=== PATIENT | female | born 1945 | race Caucasian/White ===

== ENCOUNTER 2016-10-12 14:19 | Observation (INO) ==
[2016-10-12] MEDS ORDERED: *HR* Morphine 2 MG/ML SYRINGE IVP ONE (14:31)
[2016-10-12 15:00] LABS: Basophils # 0.1 K/mcL (0.0-0.2); Basophils % 0.3 %; Eosinophils # 0.1 K/mcL (0.0-0.6); Eosinophils % 0.5 %; Hematocrit 42.6 % (35.3-44.9); Hemoglobin 14.2 g/dL (11.5-15.4); Immature Granulocytes % 0.4 % (0-4); Lymphocytes # 1.4 K/mcL (0.6-4.6); Lymphocytes % 8.6 %; Mean Corpuscular HGB Conc 33.3 g/dL (31.6-35.5); Mean Corpuscular Volume 90.1 fL (83.0-100.0); Mean Platelet Volume 9.2 fL (9.4-12.4); Monocytes # 0.5 K/mcL (0.0-1.3); Monocytes % 3.1 %; Neutrophils # 14.1 K/mcL (1.6-8.9); Platelet Count 253 K/mcL (140-400); Red Blood Count 4.73 M/mcL (3.82-4.97); Red Cell Distribution Width 12.7 % (11.5-14.5); Segmented Neutrophils % 87.1 %
--- NOTE | 2016-10-12 15:07 | Emergency Department Note ---
Disposition Clinical Impression: Hiatal hernia Pancreatitis Qualifiers: Chronicity: acute Pancreatitis type: unspecified pancreatitis type Acute pancreatitis complication: unspecified Qualified Code(s): K85.90 - Acute pancreatitis without necrosis or infection, unspecified Abdominal pain Qualifiers: Abdominal location: unspecified location Qualified Code(s): R10.9 - Unspecified abdominal pain Disposition: Admitted As Inpatient Condition: Good Time of Disposition: 15:50 Abdominal Pain HPI - General Chief Complaint: ED Abdominal Pain Stated Complaint: Abd Pain N/V Time Seen by Provider: 10/12/16 14:27 Source: EMS Mode of arrival: EMS Limitations: physical limitation (dementia) Nursing Notes Reviewed: Yes Vital Signs Reviewed: Yes - History of Present Illness HPI Narrative: 70-year-old female history of Alzheimer's dementia presents to the ED via EMS from detention for abdominal pain. Patient has dementia and is a poor historian. Per EMS reports her roommate at the detention states that she has been vomiting all day. When EMS arrived she appeared to be dry heaving. She is no complaining of abdominal pain. When I asked her about it she is not able to provide further details. She does deny history of prior abdominal surgeries. When I asked of her gallbladder and appendix is still there she says yes. She denies a hysterectomy. She also denies any recent cough, chest pain or shortness of breath. Because I am unable to obtain accurate history will get basic labs urinalysis, EKG and a troponin. Also get a CT of the abdomen and pelvis. Patient was given Zofran ODT by EMS. She is currently not feeling nauseated. Morphine has been ordered for pain. Pt Subjective Complaint: abdominal pain Pain Scale: 5 - Related Data Home Medications Medication Instructions Recorded Confirmed Aspirin 325 mg PO DAILY 03/23/15 10/12/16 Folic Acid 0.4 mg PO DAILY 03/23/15 10/12/16 Metoprolol [Lopressor] 25 mg PO BID 03/23/15 10/12/16 Nitroglycerin [Nitrostat] 0.4 mg SL Q5M PRN 03/23/15 10/12/16 Omeprazole [PriLOSEC] 20 mg PO DAILY 03/23/15 10/12/16 ALPRAZolam [Xanax 0.5 MG Tablet] 0.5 mg PO TID 10/12/16 10/12/16 Acetaminophen [Tylenol] 1,000 mg PO HS 10/12/16 10/12/16 Acetaminophen [Tylenol] 650 mg PO Q8H PRN 10/12/16 10/12/16 Albuterol Neb [Proventil Neb] 2.5 mg IH Q4H PRN 10/12/16 10/12/16 Albuterol Sulfate [Proair Hfa] 2 puff IH Q4H PRN 10/12/16 10/12/16 Beclomethasone Diprop 40mcg [Qvar 2 puff IH BID 10/12/16 10/12/16 40 mcg] Carbidopa/Levodopa 25/100 [Sinemet 1 each PO 5XD 10/12/16 10/12/16 25/100] Citalopram [CeleXA] 20 mg PO DAILY 10/12/16 10/12/16 Cyanocobalamin (Vitamin B-12) 1,000 mcg PO DAILY 10/12/16 10/12/16 [Vitamin B12] Cyclobenzaprine HCl 5 mg PO TID 10/12/16 10/12/16 Dicyclomine [Bentyl] 10 mg PO BID 10/12/16 10/12/16 Docusate [Colace] 100 mg PO BID 10/12/16 10/12/16 Donepezil [Aricept] 5 mg PO HS 10/12/16 10/12/16 Ergocalciferol (VITAMIN D2) 50,000 unit PO SA 10/12/16 10/12/16 [Vitamin D2] Fexofenadine HCl [Allergy Relief] 180 mg PO DAILY 10/12/16 10/12/16 Gabapentin [Neurontin] 300 mg PO QAM 10/12/16 10/12/16 Gabapentin [Neurontin] 600 mg PO HS 10/12/16 10/12/16 Glycopyrrolate [Robinul] 0.5 mg PO BID 10/12/16 10/12/16 Guaifenesin [Mucinex] 600 mg PO Q12H PRN 10/12/16 10/12/16 HYDROcodone/Acet 5/325 mg [Alma 1 tab PO Q6H PRN 10/12/16 10/12/16 5-325 mg] HYDROcodone/Acet 5/325 mg [Alma 1 tab PO QAM 10/12/16 10/12/16 5-325 mg] Lisinopril/Hydrochlorothiazide 1 each PO DAILY 10/12/16 10/12/16 [Zestoretic 10-12.5 mg Tablet] Magnesium Hydroxide [Milk of 2,400 mg PO DAILY PRN 10/12/16 10/12/16 Magnesia] Multivit,Th Iron,Other Min 1 each PO DAILY 10/12/16 10/12/16 [Therems-M] Olopatadine HCl [Patanol] 2 drop BOTH EYES BID 10/12/16 10/12/16 Ondansetron HCl [Zofran] 4 mg PO Q6H PRN 10/12/16 10/12/16 Polyethylene Glycol 3350 [MiraLAX] 17 gm PO DAILY PRN 10/12/16 10/12/16 Rivastigmine Tartrate (oral) 3 mg PO BID 10/12/16 10/12/16 [Exelon] Scopolamine Patch [Transderm-Scop] 1.5 mg TD Q72H 10/12/16 10/12/16 Sennosides/Docusate Sodium 2 each PO BID 10/12/16 10/12/16 [Senna-S Tablet] cloNIDine HCl [CloNIDine HCl] 0.1 mg PO DAILY PRN 10/12/16 10/12/16 Allergies Allergy/AdvReac Type Severity Reaction Status Date / Time meperidine [From Demerol] Allergy Rash Verified 11/11/15 08:33 Review of Systems: As Per HPI Limitations: ROS unobtainable due to patients medical condition (dementia) Abdominal Pain PMH - Past Medical History Medical history: Reports: COPD, dementia, hypertension, other Female Surgical History: Reports: other [employer] history: Reports: no [employer] history Psychiatric history: Reports: anxiety - Social History Smoking status: Unknown if ever smoked Alcohol use: Reports: none Drug use: Reports: none Physical Exam - General Limitations: altered mental status (pleasantly demented) General appearance: alert, in no apparent distress - Head Head exam: atraumatic, normocephalic, normal inspection - Eye Eye exam: Present: normal appearance, EOMI - ENT ENT exam: normal exam, normal oropharynx, mucous membranes moist - Neck Neck exam: Present: normal inspection, full ROM. Absent: tenderness - Chest Chest inspection: Present: normal inspection, symmetric chest wall rise. Absent : tenderness, rash - Respiratory Respiratory exam: Present: normal lung sounds bilaterally. Absent: respiratory distress, wheezes - Cardiovascular Cardiovascular exam: Present: regular rate, normal rhythm, normal heart sounds - Abdominal Exam Abdominal exam: Present: soft, tenderness, guarding (voluntary), normal bowel sounds. Absent: distention, rebound, rigidity, Florez's sign, Rovsing's sign, tenderness at McBurney's Point Abdominal tenderness: Present: diffuse, mild - Extremities Exam Extremities exam: Present: normal inspection, full ROM. Absent: tenderness, pedal edema - Neurological Exam Neurological exam: Present: alert, oriented X3 - Psychiatric Psychiatric exam: Present: normal affect, normal mood - Skin Skin exam: Present: warm, dry, intact, normal color. Absent: rash, cyanosis, diaphoresis, erythema Course - Reevaluation(s) Reevaluation #1: Patient support story. She has some voluntary guarding on abdominal exam. Is otherwise soft diffusely tender. Labs performed. She has a leukocytosis of 16. Her lactate is elevated at 2.3 in her lipases elevated 260. Concerning for possible pancreatitis. CT shows incidental adenoma. Fortunately her urinalysis appears contaminated will await cultures for treating. Patient would benefits admission for symptom control and monitoring. She has been giving a liter of normal saline. Patient will be admitted for abdominal pain, nausea vomiting, pancreatitis and elevated lactate. - Consultations Consultation #1: Spoke with on-call hospitalist terri Reeves to admit for abdominal pain, elevated lipase, pancreatitis, elevated lactate. No further orders at this time Time: 17:00 Vital Signs Temperature 97.5 F L 10/12/16 14:29 Pulse Rate 92 10/12/16 14:29 Respiratory Rate 16 10/12/16 14:29 Blood Pressure 181/92 10/12/16 14:29 O2 Sat by Pulse Oximetry 96 10/12/16 14:29 Temperature 97.5 F L 10/12/16 14:29 Pulse Rate 80 10/12/16 17:30 Respiratory Rate 16 10/12/16 17:59 Blood Pressure 165/76 10/12/16 17:59 O2 Sat by Pulse Oximetry 96 10/12/16 17:30 Oxygen Delivery Oxygen Delivery Room Air Abdominal Pain - Medical Records Medical records reviewed: Yes I reviewed the patient's medical records. - Lab Data Lab results reviewed: Yes I reviewed the patient's lab results. Result diagrams: 10/12/16 14:37 10/12/16 14:47 Lab Results 10/12/16 10/12/16 10/12/16 Range/Units 14:37 14:47 14:47 WBC 16.2 H (4.3-11.1) K/mcL RBC 4.73 (3.82-4.97) M/mcL Hgb 14.2 (11.5-15.4) g/dL Hct 42.6 (35.3-44.9) % MCV 90.1 (83.0-100.0) fL MCH 30.0 (28.0-33.3) pg MCHC 33.3 (31.6-35.5) g/dL RDW 12.7 (11.5-14.5) % Plt Count 253 (140-400) K/mcL MPV 9.2 L (9.4-12.4) fL Immature Gran % 0.4 (0-4) % Seg Neutrophils % 87.1 % Lymphocytes % 8.6 % Monocytes % 3.1 % Eosinophils % 0.5 % Basophils % 0.3 % Neutrophils # 14.1 H (1.6-8.9) K/mcL Lymphocytes # 1.4 (0.6-4.6) K/mcL Monocytes # 0.5 (0.0-1.3) K/mcL Eosinophils # 0.1 (0.0-0.6) K/mcL Basophils # 0.1 (0.0-0.2) K/mcL Sodium 137 (136-145) mEq/L Potassium 3.3 L (3.5-4.5) mEq/L Chloride 102 (98-109) mEq/L Carbon Dioxide 27 (19-29) mEq/L BUN 16 (7-20) mg/dL Creatinine 0.63 (0.57-1.11) mg/dL Est GFR ( Amer) > 60 (> 60) Est GFR (Non-Af Amer) > 60 (> 60) BUN/Creatinine Ratio 25 (6-26) Glucose 122 H (70-99) mg/dL Calculated Osmolality 286 (280-300) Lactic Acid 2.3 H (0.5-2.2) mmol/L Calcium 9.5 (8.6-10.8) mg/dL Total Bilirubin 0.3 (0.2-1.2) mg/dL Direct Bilirubin 0.1 (0.0-0.5) mg/dL Indirect Bilirubin 0.2 (0.0-1.2) mg/dL AST 17 (5-34) Units/L ALT 6 (0-55) Units/L Alkaline Phosphatase 72 (38-126) Units/L Troponin I (0-0.03) ng/mL Serum Total Protein 7.3 (6.0-8.3) g/dL Albumin 4.0 (3.5-5.0) g/dL Globulin 3.3 (2.4-3.5) g/dL Albumin/Globulin Ratio 1.2 (1.1-2.2) Amylase 132 H (25-125) Units/L Lipase 257 H (8-78) Units/L Urine Color (Yellow) Urine Clarity (Clear) Urine pH (5.0-8.0) pH Units Ur Specific Clark (1.010-1.025) Urine Protein (Neg-Trace) mg/dL Urine Glucose (UA) (Normal) mg/dL Urine Ketones (Negative) mg/dL Urine Blood (Negative) Urine Nitrite (Negative) Urine Bilirubin (Negative) Urine Urobilinogen (Normal) mg/dL Ur Leukocyte Esterase (Negative) Urine Microscopic RBC (0-3) per hpf Urine Microscopic WBC (0-3) per hpf Ur Squamous Epith Cells (None-Few) per lpf Urine Bacteria (None-Few) per hpf Hyaline Casts (None-Few) per lpf Ur Culture Indicated? (NO) 10/12/16 10/12/16 Range/Units 14:47 15:24 WBC (4.3-11.1) K/mcL RBC (3.82-4.97) M/mcL Hgb (11.5-15.4) g/dL Hct (35.3-44.9) % MCV (83.0-100.0) fL MCH (28.0-33.3) pg MCHC (31.6-35.5) g/dL RDW (11.5-14.5) % Plt Count (140-400) K/mcL MPV (9.4-12.4) fL Immature Gran % (0-4) % Seg Neutrophils % % Lymphocytes % % Monocytes % % Eosinophils % % Basophils % % Neutrophils # (1.6-8.9) K/mcL Lymphocytes # (0.6-4.6) K/mcL Monocytes # (0.0-1.3) K/mcL Eosinophils # (0.0-0.6) K/mcL Basophils # (0.0-0.2) K/mcL Sodium (136-145) mEq/L Potassium (3.5-4.5) mEq/L Chloride (98-109) mEq/L Carbon Dioxide (19-29) mEq/L BUN (7-20) mg/dL Creatinine (0.57-1.11) mg/dL Est GFR ( Amer) (> 60) Est GFR (Non-Af Amer) (> 60) BUN/Creatinine Ratio (6-26) Glucose (70-99) mg/dL Calculated Osmolality (280-300) Lactic Acid (0.5-2.2) mmol/L Calcium (8.6-10.8) mg/dL Total Bilirubin (0.2-1.2) mg/dL Direct Bilirubin (0.0-0.5) mg/dL Indirect Bilirubin (0.0-1.2) mg/dL AST (5-34) Units/L ALT (0-55) Units/L Alkaline Phosphatase (38-126) Units/L Troponin I 0.00 (0-0.03) ng/mL Serum Total Protein (6.0-8.3) g/dL Albumin (3.5-5.0) g/dL Globulin (2.4-3.5) g/dL Albumin/Globulin Ratio (1.1-2.2) Amylase (25-125) Units/L Lipase (8-78) Units/L Urine Color Yellow (Yellow) Urine Clarity Cloudy A (Clear) Urine pH 7.0 (5.0-8.0) pH Units Ur Specific Clark 1.015 (1.010-1.025) Urine Protein Negative (Neg-Trace) mg/dL Urine Glucose (UA) Normal (Normal) mg/dL Urine Ketones Negative (Negative) mg/dL Urine Blood Negative (Negative) Urine Nitrite Negative (Negative) Urine Bilirubin Negative (Negative) Urine Urobilinogen Normal (Normal) mg/dL Ur Leukocyte Esterase Trace H (Negative) Urine Microscopic RBC 0-3 (0-3) per hpf Urine Microscopic WBC 5-15 H (0-3) per hpf Ur Squamous Epith Cells Moderate H (None-Few) per lpf Urine Bacteria Many H (None-Few) per hpf Hyaline Casts None Seen (None-Few) per lpf Ur Culture Indicated? YES A (NO) - Radiology Data Radiology results reviewed: Yes I reviewed the patient's radiology results. Abdomen/Pelvis CT 10/12/16 15:30 IMPRESSION: Large hiatal hernia. Indeterminate 1.6 left adrenal gland nodule, likely an incidental benign adenoma in the absence of no malignancy or biochemical abnormality. Comparison with prior studies would be helpful to confirm stability. Otherwise, a dedicated adrenal protocol CT or MRI would be helpful to further evaluate. D/ / Nita Butler Cha, MD / Nita Butler Cha, MD Interpreting Provider: Nita Butler Cha, MD - EKG Data EKG attestation: Yes I reviewed and interpreted this EKG. EKG results narrative: EKG performed 1440 normal sinus rhythm with first-degree AV block FL interval 236, no drop beats, no ST elevation or depression, no T wave inversion, good R wave progression, normal axis. Intervals are otherwise in normal limits. Compared to old EKG performed 11/11/2015 shows consistent findings. No acute ischemic changes. Attestation Statement - Attestation Attestation: I, Rohit Resendez, examined this patient and my medical decision-making was reviewed with the COOK[employer] MACHINE OPERATOR/PA/Advanced Practice Nurse/Resident Physician. I agree with the documented findings, disposition and treatment plan as described except to the extent set forth below. 70-year-old female presents with concerns of epigastric pain and nausea. Patient states that symptoms started within the past 24 hours located in the epigastric and not radiate. Patient denies fever, chills, shortness of breath, palpitations. On physical exam patient has tenderness to palpation of the epigastrium without abdomen is otherwise soft without rigidity or guarding or rebound. Lungs are clear to auscultation bilaterally. EKG shows a normal sinus rhythm with a rate of 82 without evidence of STEMI. Laboratory evaluation revealed elevation of lipase. Patient has no history of pancreatitis. She will be admitted to the hospital for further care and evaluation of her pancreatitis.
[2016-10-12 15:15] LABS: Alanine Aminotransferase 6 Units/L (0-55); Albumin/Globulin Ratio 1.2 (1.1-2.2); Alkaline Phosphatase 72 Units/L (38-126); Amylase 132 Units/L (25-125); Aspartate Amino Transferase 17 Units/L (5-34); BUN/Creatinine Ratio 25 (6-26); Bilirubin,Direct 0.1 mg/dL (0.0-0.5); Bilirubin,Indirect 0.2 mg/dL (0.0-1.2); Bilirubin,Total 0.3 mg/dL (0.2-1.2); Blood Urea Nitrogen 16 mg/dL (7-20); Calcium 9.5 mg/dL (8.6-10.8); Carbon Dioxide 27 mEq/L (19-29); Chloride 102 mEq/L (98-109); Globulin 3.3 g/dL (2.4-3.5); Glucose 122 mg/dL (70-99); Lipase 257 Units/L (8-78); Osmolality,Calculated 286 (280-300); Potassium 3.3 mEq/L (3.5-4.5); Sodium 137 mEq/L (136-145); Total Protein 7.3 g/dL (6.0-8.3); eGFR For African Americans > 60 (> 60); eGFR For Non-African Americans > 60 (> 60)
[2016-10-12 15:31] LABS: Bilirubin,Urine Negative (Negative); Blood,Urine Negative (Negative); Clarity,Urine Cloudy (Clear); Color,Urine Yellow (Yellow); Glucose,Urine (UA) Normal (Normal); Ketones,Urine Negative (Negative); Leukocyte Esterase,Urine Trace (Negative); Nitrite,Urine Negative (Negative); Protein,Urine Negative (Neg-Trace); Specific Gravity,Urine 1.015 (1.010-1.025); Urobilinogen,Urine Normal (Normal)
[2016-10-12 15:32] LABS: Bacteria,Urine Many per hpf (None-Few); Hyaline Casts,Urine None Seen per lpf (None-Few); RBC,Urine 0-3 per hpf (0-3); Squamous Epithelial Cell,Urine Moderate per lpf (None-Few)
[2016-10-12] MEDS ORDERED: 0.9 % Sodium Chloride 1,000 ML IVC ONE (15:47)
--- NOTE | 2016-10-12 21:05 | Internal Med History&Physical ---
<Maritza Trivedi - Last Filed: 10/12/16 22:26> Date of Encounter: 10/12/16 Internal Medicine - H&P: HPI History of present illness: Ms. Real is a 70 year old female Internal Medicine - H&P: Meds Aspirin 325 mg PO DAILY 03/23/15 [History] Folic Acid 0.4 mg PO DAILY 03/23/15 [History] Metoprolol [Lopressor] 25 mg PO BID 03/23/15 [History] Nitroglycerin [Nitrostat] 0.4 mg SL Q5M PRN 03/23/15 [History] Omeprazole [PriLOSEC] 20 mg PO DAILY 03/23/15 [History] ALPRAZolam [Xanax 0.5 MG Tablet] 0.5 mg PO TID 10/12/16 [History] Acetaminophen [Tylenol] 1,000 mg PO HS 10/12/16 [History] Acetaminophen [Tylenol] 650 mg PO Q8H PRN 10/12/16 [History] Albuterol Neb [Proventil Neb] 2.5 mg IH Q4H PRN 10/12/16 [History] Albuterol Sulfate [Proair Hfa] 2 puff IH Q4H PRN 10/12/16 [History] Beclomethasone Diprop 40mcg [Qvar 40 mcg] 2 puff IH BID 10/12/16 [History] Carbidopa/Levodopa 25/100 [Sinemet 25/100] 1 each PO 5XD 10/12/16 [History] Citalopram [CeleXA] 20 mg PO DAILY 10/12/16 [History] Cyanocobalamin (Vitamin B-12) [Vitamin B12] 1,000 mcg PO DAILY 10/12/16 [History ] Cyclobenzaprine HCl 5 mg PO TID 10/12/16 [History] Dicyclomine [Bentyl] 10 mg PO BID 10/12/16 [History] Docusate [Colace] 100 mg PO BID 10/12/16 [History] Donepezil [Aricept] 5 mg PO HS 10/12/16 [History] Ergocalciferol (VITAMIN D2) [Vitamin D2] 50,000 unit PO SA 10/12/16 [History] Fexofenadine HCl [Allergy Relief] 180 mg PO DAILY 10/12/16 [History] Gabapentin [Neurontin] 300 mg PO QAM 10/12/16 [History] Gabapentin [Neurontin] 600 mg PO HS 10/12/16 [History] Glycopyrrolate [Robinul] 0.5 mg PO BID 10/12/16 [History] Guaifenesin [Mucinex] 600 mg PO Q12H PRN 10/12/16 [History] HYDROcodone/Acet 5/325 mg [Rapelje 5-325 mg] 1 tab PO Q6H PRN 10/12/16 [History] HYDROcodone/Acet 5/325 mg [Rapelje 5-325 mg] 1 tab PO QAM 10/12/16 [History] Lisinopril/Hydrochlorothiazide [Zestoretic 10-12.5 mg Tablet] 1 each PO DAILY [History] Magnesium Hydroxide [Milk of Magnesia] 2,400 mg PO DAILY PRN 10/12/16 [History] Multivit,Th Iron,Other Min [Therems-M] 1 each PO DAILY 10/12/16 [History] Olopatadine HCl [Patanol] 2 drop BOTH EYES BID 10/12/16 [History] Ondansetron HCl [Zofran] 4 mg PO Q6H PRN 10/12/16 [History] Polyethylene Glycol 3350 [MiraLAX] 17 gm PO DAILY PRN 10/12/16 [History] Rivastigmine Tartrate (oral) [Exelon] 3 mg PO BID 10/12/16 [History] Scopolamine Patch [Transderm-Scop] 1.5 mg TD Q72H 10/12/16 [History] Sennosides/Docusate Sodium [Senna-S Tablet] 2 each PO BID 10/12/16 [History] cloNIDine HCl [CloNIDine HCl] 0.1 mg PO DAILY PRN 10/12/16 [History] 3 Allergy/AdvReac Type Severity Reaction Status Date / Time meperidine [From Demerol] Allergy Rash Verified 11/11/15 08:33 All Systems PM: A 10-system review of systems was performed and is negative for pertinent findings except as documented above in the HPI. - Constitutional Vitals: Temp Pulse Resp BP Pulse Ox 97.6 F 85 16 173/107 94 10/12/16 20:19 10/12/16 20:19 10/12/16 20:19 10/12/16 20:19 10/12/16 20:19 Internal Med - H&P Results - Labs CBC & Chem 7: 10/12/16 14:37 10/12/16 14:47 - Attending Attestation Patient seen and examined independently and discussed with Gilmer LINARES. Patient's urinary frequency and suprapubic pain align with symptoms of UTI. Urinalysis is not overtly impressive, but given symptoms, agree with Rocephin pending urine culture results. Hyperlipasemia is reflective of emesis, but no evicence of acute pancreatitis on CT scan, and location of abdominal pain inconsistent with diagnosis of acute pancreatitis. Abdominal exam: no guarding or peritoneal signs, very mild suprapubic ttp with normal bowel sounds. Given uncontrolled HTN, will also add PRN Hydralazine. Otherwise, agree with assessment and plan for UTI and abdominal pain. <Gilmer Elliott - Last Filed: 10/12/16 22:31> Date of Encounter: 10/12/16 Time of Encounter: 19:30 Assessment and Plan (1) UTI (urinary tract infection) Current visit: Yes Status: Acute Patient presents with WBC of 16.2 and symptoms of abdominal pain that is generalized as well as in the suprapubic region, nausea, and vomiting. Patient reports a history of UTIs and states that her current symptoms are similar to what occurs when she's had a UTI in the past. Initial U/A in the Ed was indicative of a urine culture which was ordered. IV ceftriaxone 1,000 mg daily ordered for infection coverage. Patient currently does not meet SIRS criteria but will be monitored for signs of increasing infection and/or sepsis. Will monitor I&O and follow-up labs. Qualifiers: Urinary tract infection type: site unspecified Hematuria presence: without hematuria Qualified Code(s): N39.0 - Urinary tract infection, site not specified (2) Abdominal pain Current visit: Yes Status: Acute Patient presents with acute abdominal pain over the past several days accompanied by nausea and vomiting. Patient reports she has had these symptoms prior when she had a UTI which she reports a history of. IVP Zofran ordered Q6 PRN for nausea and vomiting. IVP Protonix 40 mg daily ordered for patient's GERD. Stair-step pain medications ordered for pain management. CT of the abdomen /pelvis w/IV contrast today is not indicative of pancreatitis, but does show large hiatal hernia and indeterminate 1.6 left adrenal gland nodule likely as an incidental benign adenoma in the absence of known malignancy or biochemical abnormality. Qualifiers: Abdominal location: lower abdomen, unspecified Qualified Code(s): R10.30 - Lower abdominal pain, unspecified (3) Nausea & vomiting Current visit: Yes Status: Acute Patient presents with acute nausea and vomiting over the past several days. Patient's lipase on admission is 257 and this hyperlipasemia is most likely due to patient's cyclical vomiting. Will monitor follow-up labs. IVP Zofran ordered Q6 PRN. Monitor I&O and daily weight. Qualifiers: Vomiting type: cyclical vomiting Vomiting Intractability: non-intractable Qualified Code(s): G43.A0 - Cyclical vomiting, not intractable (4) Weakness Current visit: Yes Status: Acute Patient presents with weakness that she relates to pain, nausea, and vomiting over the past several days. IV fluids ordered at 75 mL/HR for fluid resuscitation. Patient placed as falls precautions/up with assist/bed rest with bedside commode with assist only due to current weakness. PT/OT consults ordered to assess patient for ambulation needs post-discharge. (5) HTN (hypertension) Current visit: Yes Status: Chronic Patient presents with history of chronic hypertension. Patient's BP 181/92 and 165/76 in the ED most likely due to abdominal pain, nausea, and vomiting. Will monitor patient and vital signs and continue her lisinopril and Lopressor. Will order hydralazine IVP if patient's N/V continues and she is unable to keep down meds. Qualifiers: Hypertension type: essential hypertension Qualified Code(s): I10 - Essential (primary) hypertension (6) COPD (chronic obstructive pulmonary disease) Current visit: Yes Status: Chronic Patient presents with history of chronic COPD and complaint of SOB. Supplemental O2 with SpO2 monitoring ordered with titration if SpO2 <92%. DuoNebs ordered Q6 PRN. Will monitor patient and vital signs. Qualifiers: COPD type: unspecified COPD Qualified Code(s): J44.9 - Chronic obstructive pulmonary disease, unspecified (7) Parkinsons disease Current visit: Yes Status: Chronic Patient presents with history of chronic Parkinsons disease. Will continue patient's Carbidopa/Levodopa. (8) DVT prophylaxis Current visit: Yes Status: Acute Patient to be placed on DVT prophylaxis due to current admission protocol and bed rest status. Heparin 5,000 units SQ Q12 ordered. Internal Medicine - H&P: HPI Chief complaint: Abdominal Pain/N/V Admitted From: Emergency Dept Plans for Post Hospital Care: Transfer [facility] Facility History of present illness: Ms. Real is a 70 year old female who presents from the ED with chief complaint of abdominal pain, nausea, and vomiting over the past several days. She states that this has happened before but not for awhile. She also reports that these symptoms are consistent for times when she has a UTI which she reports a history of. She reports urinary urgency and frequency but denies burning with urination. Patient reports some SOB due to current abdominal pain, N/V. She denies chest pain, fever, chills, recent illness, dizziness, headache, vision changes, unusual bleeding, pre-syncope, or syncope. Patient's medical history includes COPD, dementia, hypertension, GERD, and Parkinson's disease. Patient's WBC on admission is 16.2. She currently does not meet SIRS criteria based on other factors but will be monitored for increasing signs of infection. Patient has a lipase level of 257 which is most likely due to her chronic vomiting over the past [address] scan of the abdomen/pelvis today w/IV contrast shows large hiatal hernia, indeterminate 1.6 left adrenal gland nodule likely an incidental benign adenoma in the absence of known malignancy or biochemical abnormality. Comparison with prior studies would be helpful to confirm stability otherwise dedicated adrenal protocol CT or MRI would be helpful to further evaluate. CT is not indicative of pancreatitis. Ms. Real is at moderate risk for further morbidity based on current pain and N/V and will be placed as observation status with orders for IV ceftriaxone 1,000 daily to treat her suspected UTI. IVP Zofran ordered Q6 PRN for N/V and IVP Protonix 40 mg ordered daily for GERD. Supplemental O2 for SOB and safety/falls precautions ordered due to current weakness. Follow-up labs ordered as well as urine culture. Patient to be monitored closely for signs of increasing infection and/or sepsis. Time spent with patient >40 minutes. Past Med Surg Social Fam HX - Past Medical History Source: patient Medical history: COPD, dementia, hypertension, other (Parkinson's disease) Psychiatric history: anxiety - Social History Smoking Status: Former smoker Packs per day: 1 PPD - reports quitting 30 years ago Smokeless Tobacco Status: No Alcohol use: none Drug use: none Current living situation: Assisted Living Activity Level: Uses cane/walker Recent Out of Country Travel Within the Last 8 Weeks: No Exposure or Possible Exposure to Illness During Travel: No - Family History Father History Unknown: Yes Race: Family Member Ethnicity: Non- Living Status: Mother History Unknown: Yes Race: Family Member Ethnicity: Non- Living Status: Brother Race: Family Member Ethnicity: Non- Living Status: Cause of : Cancer Hx Family Cancer: Yes (Unknown type) Sister Race: Family Member Ethnicity: Non- Living Status: Cause of : HD Hx Family Cardiac Disorders: Yes (HD) All Systems PM: A 10-system review of systems was performed and is negative for pertinent findings except as documented above in the HPI. - Constitutional Constitutional: as per HPI, weakness, no chills, no fever(s), no night sweats - EENT Eyes: no change in vision, no discharge, no pain, no photophobia Ears: no ear discharge, no ear pain, no tinnitus Nose, mouth and throat: no dysphagia, no nasal discharge, no neck pain, no sore throat - Breasts Breasts: as per HPI - Cardiovascular Cardiovascular ROS IM: as per HPI, dyspnea, no chest pain, no diaphoresis, no lightheadedness, no palpitations, no syncope - Respiratory Respiratory: as per HPI, dyspnea, no cough, no wheezing, no excessive phlegm production - Gastrointestinal Gastrointestinal: as per HPI, abdominal pain, nausea, vomiting - Genitourinary Genitourinary: as per HPI, urinary frequency, urinary urgency, other ( Suprapubic pain and abdominal pain) Menstruation: as per HPI - Musculoskeletal Musculoskeletal ROS IM: no numbness, no tingling - Integumentary Integumentary IM: no rash, no unusual bruising - Neurological Neurological ROS: as per HPI, weakness, no confusion, no convulsions, no focal weakness, no numbness, no tingling, no tremor(s) - Psychiatric Psychiatric: as per HPI - Endocrine Endocrine IM: as per HPI - Hematologic/Lymphatic Hematologic/Lymphatic: no easy bruising - Allergic/Immunologic Allergic/Immunologic: as per HPI - Constitutional Vitals: Temp Pulse Resp BP Pulse Ox 97.6 F 85 16 173/107 94 10/12/16 20:19 10/12/16 20:19 10/12/16 20:19 10/12/16 20:19 10/12/16 20:19 General appearance: Present: cooperative, A&O X 3, pleasant, answers questions appropriately - Head Head exam: Present: atraumatic, normocephalic - Eye Eye exam: Present: PERRL, conjuntiva pink, sclera anicteric Pupils: Present: PERRL - ENT ENT exam: Present: normal exam, normal external ear exam - Neck Neck exam general surgery: Present: normal inspection - Respiratory Respiratory exam: Present: CTAB. Absent: accessory muscle use, rales, rhonchi, wheezes - Cardiovascular Cardiovascular exam: Present: RRR, +S1, +S2. Absent: diastolic murmur, gallop, rubs, systolic murmur - GI/Abdominal GI/Abdominal exam: Present: diminished bowel sounds, soft, tenderness, no peritoneal signs - Rectal Rectal exam: Present: deferred - Additional comments: exam deferred. - Extremities Exam Extremities exam: Present: warm, radial pulses palpable and symmetrical. Absent : calf tenderness, cyanotic, pedal edema - Back Exam Back exam: Present: normal inspection - Neurological Exam Neurological exam: Present: CN II-XII intact, oriented X3, no focal deficits. Absent: pronater drift, facial droop, speech deficit - Psychiatric Psychiatric exam: Present: normal affect, normal mood - Skin Skin exam: Present: dry, intact Internal Med - H&P Results - Labs CBC & Chem 7: 10/12/16 14:37 10/12/16 14:47 - EKG Data EKG shows normal: sinus rhythm - EKG Data Prior EKG available for review: yes When compared to previous EKG: there is no significant change Interpretation IM: suggestive of ischemia EKG comments: 10/12/16 21:51 EKG dated 11/11/15 shows sinus rhythm. EKG dated 10/12/16 shows sinus rhythm with first-degree AV block, septal myocardial infarction (probably old). - Diagnostic Studies CT scan - abdomen Additional comments: Impressions Abdomen/Pelvis CT 10/12/16 15:30 IMPRESSION: Large hiatal hernia. Indeterminate 1.6 left adrenal gland nodule, likely an incidental benign adenoma in the absence of no malignancy or biochemical abnormality. Comparison with prior studies would be helpful to confirm stability. Otherwise, a dedicated adrenal protocol CT or MRI would be helpful to further evaluate. D/ / Nita Butler Cha, MD / Nita Butler Cha, MD Interpreting Provider: Nita Butler Cha, MD
[2016-10-12] MEDS ORDERED: Naloxone 0.4 MG/ML INJ IVP PRN (21:12)
[2016-10-12] MEDS ORDERED: Ondansetron 4 MG/2 ML VIAL IVP PRN (21:12)
[2016-10-12] MEDS ORDERED: *HR* Morphine 2 MG/ML SYRINGE IVP PRN (21:12)
[2016-10-12] MEDS ORDERED: Acetaminophen 325 MG TABLET PO PRN (21:12)
[2016-10-12] MEDS ORDERED: *HR* HYDROcodone/Acet 5/325 mg TABLET PO PRN (21:12)
[2016-10-12] MEDS ORDERED: cloNIDine HCl 0.1 MG TABLET PO PRN (21:21)
[2016-10-12] MEDS ORDERED: Nitroglycerin 0.4 MG TAB.SUBL SL PRN (21:21)
[2016-10-12] MEDS: Pantoprazole 40 MG VIAL IVP SCH (21:28)
[2016-10-12] MEDS ORDERED: Scopolamine Patch 1.5 MG PATCH.TD72 TD SCH (21:30)
[2016-10-12] MEDS ORDERED: 0.9 % Sodium Chloride 1,000 ML IVC SCH (21:30)
[2016-10-12] MEDS ORDERED: Ipratropium/Albuterol Neb 3 ML IH PRN (22:05)
[2016-10-12] MEDS: Gabapentin 300 MG CAPSULE PO SCH (22:45)
[2016-10-12] MEDS: ALPRAZolam 0.5 MG TABLET PO SCH (22:47)
[2016-10-13] MEDS: Carbidopa/Levodopa 25/100 TABLET PO SCH ×4 (00:23→16:48)
[2016-10-13] MEDS: *HR* Heparin 5,000 UNIT/ML VIAL SQ SCH ×2 (05:56→19:55)
[2016-10-13 07:05] LABS: BUN/Creatinine Ratio 13 (6-26); Blood Urea Nitrogen 9 mg/dL (7-20); Calcium 8.6 mg/dL (8.6-10.8); Carbon Dioxide 26 mEq/L (19-29); Chloride 106 mEq/L (98-109); Chol/HDL Ratio 5.7 (0-4.9); Cholesterol 262 mg/dL (< 200); Glucose 101 mg/dL (70-99); HDL Cholesterol 46 mg/dL (40-59); LDL Cholesterol,Calculated 186 mg/dL (0-99); Magnesium 1.9 mg/dL (1.6-2.6); Osmolality,Calculated 291 (280-300); Potassium 3.4 mEq/L (3.5-4.5); Sodium 141 mEq/L (136-145); Triglycerides 150 mg/dL (< 150); eGFR For African Americans > 60 (> 60); eGFR For Non-African Americans > 60 (> 60)
[2016-10-13 07:07] LABS: Basophils % 0.5 %; Eosinophils # 0.2 K/mcL (0.0-0.6); Eosinophils % 2.7 %; Hematocrit 37.2 % (35.3-44.9); Immature Granulocytes % 0.3 % (0-4); Lymphocytes # 1.6 K/mcL (0.6-4.6); Lymphocytes % 21.8 %; Mean Corpuscular HGB Conc 32.3 g/dL (31.6-35.5); Mean Corpuscular Hemoglobin 29.6 pg (28.0-33.3); Mean Corpuscular Volume 91.6 fL (83.0-100.0); Mean Platelet Volume 9.4 fL (9.4-12.4); Monocytes # 0.6 K/mcL (0.0-1.3); Monocytes % 7.5 %; Neutrophils # 4.9 K/mcL (1.6-8.9); Platelet Count 246 K/mcL (140-400); Red Blood Count 4.06 M/mcL (3.82-4.97); Red Cell Distribution Width 13.1 % (11.5-14.5); Segmented Neutrophils % 67.2 %
[2016-10-13] MEDS: Rivastigmine Tartrate (oral) 1.5 MG CAPSULE PO SCH (07:48)
[2016-10-13] MEDS: Pantoprazole 40 MG VIAL IVP SCH (07:48)
[2016-10-13] MEDS: Glycopyrrolate 1 MG TABLET PO SCH (07:49)
[2016-10-13] MEDS: Sennosides/Docusate Sodium TABLET PO SCH (07:49)
[2016-10-13] MEDS: ALPRAZolam 0.5 MG TABLET PO SCH ×2 (07:49→14:41)
[2016-10-13] MEDS: Gabapentin 300 MG CAPSULE PO SCH (07:49)
[2016-10-13] MEDS: Aspirin 325 MG TABLET PO SCH (07:49)
[2016-10-13] MEDS: Loratadine 10 MG TABLET PO SCH (07:49)
[2016-10-13] MEDS: OLOPATADINE HCL OP SCH (07:50)
--- NOTE | 2016-10-13 13:35 | Internal Med Progress Note ---
<Beata Alcantar - Last Filed: 10/13/16 13:33> Date of Encounter: 10/13/16 Time of Encounter: 13:33 - Assessment and plan (1) UTI (urinary tract infection) Current Visit: Yes Status: Acute Assessment and plan: Patient presented with leukocytosis, suprapubic abd pain and n/v. She reports urinary frequency without dysuria or burning with urination. She was started on IV ceftriaxone 1G daily, Day#2 Leukocytosis has resolved today, both UC grossly contaminated and are unable to be interpreted. Patient appears well on exam, afebrile, VSS. She does complain of RUQ, suprapubic abd pain. Will continue to hydrate PCl NS and provide her with additional dose of abx tomorrow. Anticipate discharge back to ECF tomorrow. Plan: -Continue IV PCl NS @75/hr -Continue ceftriaxone -Anticipate discharge tomorrow Qualifiers: Urinary tract infection type: site unspecified Hematuria presence: without hematuria Qualified Code(s): N39.0 - Urinary tract infection, site not specified (2) Abdominal pain Current Visit: Yes Status: Acute Assessment and plan: RUQ, Suprapubic abd pain plan per above Qualifiers: Abdominal location: right upper quadrant Qualified Code(s): R10.11 - Right upper quadrant pain (3) Nausea & vomiting Current Visit: Yes Status: Resolved Assessment and plan: Resolved Qualifiers: Vomiting type: cyclical vomiting Vomiting Intractability: non-intractable Qualified Code(s): G43.A0 - Cyclical vomiting, not intractable (4) Weakness Current Visit: Yes Status: Acute Assessment and plan: Pt complained of weakness, most likely secondary to vomitting. Plan: -zofran prn -IVF (5) Dysphagia Current Visit: Yes Status: Acute Assessment and plan: Patient complains of some difficulty with swallowing. Plan: -NPO -Speech eval -Advance diet based on speech eval Qualifiers: Dysphagia type: unspecified Qualified Code(s): R13.10 - Dysphagia, unspecified (6) Parkinsons disease Current Visit: Yes Status: Chronic Assessment and plan: Continue home meds (7) Hiatal hernia Current Visit: Yes Status: Acute (8) HTN (hypertension) Current Visit: Yes Status: Chronic Assessment and plan: Continue home meds, 120's systolic currently Qualifiers: Hypertension type: essential hypertension Qualified Code(s): I10 - Essential (primary) hypertension (9) COPD (chronic obstructive pulmonary disease) Current Visit: Yes Status: Chronic Assessment and plan: Continue home meds, not in exacerbation Qualifiers: COPD type: unspecified COPD Qualified Code(s): J44.9 - Chronic obstructive pulmonary disease, unspecified - Subjective Interval history: Patient seen and examined. She is sitting up in the chair. She states that she has RUQ and suprapubic abd pain. She also notes she struggles with constipation. She denies dysuria, burning with urination, nausea, vomitting, fevers, chills, cp, sob. - Constitutional Vitals: Temp Pulse Resp BP Pulse Ox 97.6 F 81 16 120/75 96 10/13/16 10:25 10/13/16 10:25 10/13/16 10:25 10/13/16 10:25 10/13/16 10:25 General appearance: Present: cooperative, A&O X 3, pleasant, no acute distress, answers questions appropriately - Head Head exam: Present: atraumatic, normocephalic - Eye Eye exam: Present: EOMI, conjuntiva pink, sclera anicteric Pupils: Present: normal accommodation - Neck Neck exam general surgery: Present: supple, trachea midline - Respiratory Respiratory exam: Present: CTAB. Absent: accessory muscle use, rales, rhonchi, wheezes - Cardiovascular Cardiovascular exam: Present: RRR, systolic murmur. Absent: tachycardia - GI/Abdominal GI/Abdominal exam: Present: normal bowel sounds, soft, tenderness. Absent: distended Additional comments: Tenderness with palpation of RUQ, suprapubic tenderness - Expanded GI/Abdominal Exam GI/Abdominal exam expanded: Present: Florez's sign - Extremities Exam Extremities exam: Present: normal capillary refill, normal inspection, warm, radial pulses palpable and symmetrical. Absent: calf tenderness, cyanotic, pedal edema - Back Exam Back exam: Present: CVA tenderness (R), normal inspection. Absent: CVA tenderness (L) - Neurological Exam Neurological exam: Present: alert, oriented X3, no focal deficits, strengths equal and symetr throughout. Absent: motor sensory deficit Additional comments: mask like facies resting tremor slow, quiet speech that is slightly slurred - Skin Skin exam: Present: dry, intact, warm Internal Medicine: Result - Labs CBC & Chem 7: 10/13/16 06:34 10/13/16 06:34 Labs: Short CBC 10/13/16 Range/Units 06:34 WBC 7.3 D (4.3-11.1) K/mcL Hgb 12.0 D (11.5-15.4) g/dL Hct 37.2 (35.3-44.9) % Plt Count 246 (140-400) K/mcL Neutrophils # 4.9 (1.6-8.9) K/mcL BMP 10/13/16 06:34 Sodium 141 Potassium 3.4 L Chloride 106 Carbon Dioxide 26 BUN 9 Creatinine 0.68 Glucose 101 H Calcium 8.6 Consult Discharge Plan - Plan Referrals: Rohit Deluna MD [Primary Care Provider] - <Castillo Begum - Last Filed: 10/13/16 14:02> Date of Encounter: 10/13/16 - Constitutional Vitals: Temp Pulse Resp BP Pulse Ox 97.6 F 81 16 120/75 96 10/13/16 10:25 10/13/16 10:25 10/13/16 10:25 10/13/16 10:25 10/13/16 10:25 Internal Medicine: Result - Labs CBC & Chem 7: 10/13/16 06:34 10/13/16 06:34 Labs: Short CBC 10/13/16 Range/Units 06:34 WBC 7.3 D (4.3-11.1) K/mcL Hgb 12.0 D (11.5-15.4) g/dL Hct 37.2 (35.3-44.9) % Plt Count 246 (140-400) K/mcL Neutrophils # 4.9 (1.6-8.9) K/mcL BMP 10/13/16 06:34 Sodium 141 Potassium 3.4 L Chloride 106 Carbon Dioxide 26 BUN 9 Creatinine 0.68 Glucose 101 H Calcium 8.6 - Attending Attestation Hypokalemia Add potassium to IV fluids I examined this patient and my medical decision-making was reviewed with the Resident Physician. I agree with the documented findings, disposition and treatment plan as described except to the extent set forth below.
--- NOTE | 2016-10-13 17:00 | Electrocardiograph Report ---
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
[2016-10-13 20:24] LABS: Hemoglobin A1C 5.4 %
[2016-10-14] MEDS: Rivastigmine Tartrate (oral) 1.5 MG CAPSULE PO SCH ×2 (00:07→09:21)
[2016-10-14] MEDS: Glycopyrrolate 1 MG TABLET PO SCH ×2 (00:08→09:21)
[2016-10-14] MEDS: ALPRAZolam 0.5 MG TABLET PO SCH ×2 (00:09→09:22)
[2016-10-14] MEDS: Gabapentin 300 MG CAPSULE PO SCH ×2 (00:09→09:21)
[2016-10-14] MEDS: Sennosides/Docusate Sodium TABLET PO SCH ×2 (00:09→09:22)
[2016-10-14] MEDS: Carbidopa/Levodopa 25/100 TABLET PO SCH ×3 (00:10→09:22)
[2016-10-14] MEDS: OLOPATADINE HCL OP SCH ×2 (00:11→09:22)
[2016-10-14] MEDS: *HR* Heparin 5,000 UNIT/ML VIAL SQ SCH (05:38)
[2016-10-14 06:00] LABS: Hematocrit 34.4 % (35.3-44.9); Mean Corpuscular Hemoglobin 28.9 pg (28.0-33.3); Mean Corpuscular Volume 90.5 fL (83.0-100.0); Mean Platelet Volume 8.9 fL (9.4-12.4); Platelet Count 200 K/mcL (140-400); Red Cell Distribution Width 12.7 % (11.5-14.5)
[2016-10-14 06:13] LABS: BUN/Creatinine Ratio 13 (6-26); Blood Urea Nitrogen 9 mg/dL (7-20); Calcium 8.5 mg/dL (8.6-10.8); Carbon Dioxide 26 mEq/L (19-29); Chloride 108 mEq/L (98-109); Glucose 93 mg/dL (70-99); Osmolality,Calculated 288 (280-300); Potassium 3.4 mEq/L (3.5-4.5); Sodium 140 mEq/L (136-145); eGFR For African Americans > 60 (> 60); eGFR For Non-African Americans > 60 (> 60)
[2016-10-14] MEDS: Pantoprazole 40 MG VIAL IVP SCH (09:20)
[2016-10-14] MEDS: Loratadine 10 MG TABLET PO SCH (09:22)
[2016-10-14] MEDS: Aspirin 325 MG TABLET PO SCH (09:22)
--- NOTE | 2016-10-14 11:08 | Discharge Summary ---
Date of Encounter: 10/14/16 Time of Encounter: 11:04 - Discharge Diagnosis (1) UTI (urinary tract infection) Priority: Primary Status: Acute Comments: severe weakness 2ry to UTI Qualifiers: Urinary tract infection type: site unspecified Hematuria presence: without hematuria Qualified Code(s): N39.0 - Urinary tract infection, site not specified (2) HTN (hypertension) Priority: Secondary Status: Chronic Qualifiers: Hypertension type: essential hypertension Qualified Code(s): I10 - Essential (primary) hypertension (3) COPD (chronic obstructive pulmonary disease) Priority: Secondary Status: Chronic Qualifiers: COPD type: unspecified COPD Qualified Code(s): J44.9 - Chronic obstructive pulmonary disease, unspecified (4) Parkinsons disease Priority: Secondary Status: Chronic (5) Weakness Priority: Primary Status: Acute (6) Dysphagia Priority: Secondary Status: Acute Comments: Was evaluated by the speech pathology service Neck to thick liquids recommended with mechanical diet Qualifiers: Dysphagia type: unspecified Qualified Code(s): R13.10 - Dysphagia, unspecified - Discharge Medications Prescriptions: ALPRAZolam [Xanax 0.5 MG Tablet] 0.5 mg PO TID #30 Cefdinir [Omnicef] 300 mg PO BID #5 capsule HYDROcodone/Acet 5/325 mg [Iuka 5-325 mg] 1 tab PO Q6H PRN #20 PRN Reason: Pain Home Medications: Aspirin 325 mg PO DAILY 03/23/15 [History] Folic Acid 0.4 mg PO DAILY 03/23/15 [History] Metoprolol [Lopressor] 25 mg PO BID 03/23/15 [History] Nitroglycerin [Nitrostat] 0.4 mg SL Q5M PRN 03/23/15 [History] Omeprazole [PriLOSEC] 20 mg PO DAILY 03/23/15 [History] Acetaminophen [Tylenol] 1,000 mg PO HS 10/12/16 [History] Acetaminophen [Tylenol] 650 mg PO Q8H PRN 10/12/16 [History] Albuterol Neb [Proventil Neb] 2.5 mg IH Q4H PRN 10/12/16 [History] Albuterol Sulfate [Proair Hfa] 2 puff IH Q4H PRN 10/12/16 [History] Beclomethasone Diprop 40mcg [QVAR 40 mcg] 2 puff IH BID 10/12/16 [History] Carbidopa/Levodopa 25/100 [Sinemet 25/100] 1 each PO 5XD 10/12/16 [History] Citalopram [CeleXA] 20 mg PO DAILY 10/12/16 [History] Cyanocobalamin (Vitamin B-12) [Vitamin B12] 1,000 mcg PO DAILY 10/12/16 [History ] Cyclobenzaprine HCl 5 mg PO TID 10/12/16 [History] Dicyclomine [Bentyl] 10 mg PO BID 10/12/16 [History] Docusate [Colace] 100 mg PO BID 10/12/16 [History] Donepezil [Aricept] 5 mg PO HS 10/12/16 [History] Ergocalciferol (VITAMIN D2) [Vitamin D2] 50,000 unit PO SA 10/12/16 [History] Fexofenadine HCl [Allergy Relief] 180 mg PO DAILY 10/12/16 [History] Gabapentin [Neurontin] 300 mg PO QAM 10/12/16 [History] Gabapentin [Neurontin] 600 mg PO HS 10/12/16 [History] Glycopyrrolate [Robinul] 0.5 mg PO BID 10/12/16 [History] Guaifenesin [Mucinex] 600 mg PO Q12H PRN 10/12/16 [History] Lisinopril/Hydrochlorothiazide [Zestoretic 10-12.5 mg Tablet] 1 each PO DAILY [History] Magnesium Hydroxide [Milk of Magnesia] 2,400 mg PO DAILY PRN 10/12/16 [History] Multivit,Th Iron,Other Min [Therems-M] 1 each PO DAILY 10/12/16 [History] Olopatadine HCl [Patanol] 2 drop BOTH EYES BID 10/12/16 [History] Ondansetron HCl [Zofran] 4 mg PO Q6H PRN 10/12/16 [History] Polyethylene Glycol 3350 [MiraLAX] 17 gm PO DAILY PRN 10/12/16 [History] Rivastigmine Tartrate (oral) [Exelon] 3 mg PO BID 10/12/16 [History] Scopolamine Patch [Transderm-Scop] 1.5 mg TD Q72H 10/12/16 [History] Sennosides/Docusate Sodium [Senna-S Tablet] 2 each PO BID 10/12/16 [History] cloNIDine HCl [CloNIDine HCl] 0.1 mg PO DAILY PRN 10/12/16 [History] ALPRAZolam [Xanax 0.5 MG Tablet] 0.5 mg PO TID #30 10/14/16 [Rx] Cefdinir [Omnicef] 300 mg PO BID #5 capsule 10/14/16 [Rx] HYDROcodone/Acet 5/325 mg [Iuka 5-325 mg] 1 tab PO Q6H PRN #20 10/14/16 [Rx] Allergies/Adverse Reactions: 3 Allergy/AdvReac Type Severity Reaction Status Date / Time meperidine [From Demerol] Allergy Rash Verified 11/11/15 08:33 Date of admission: 10/12/16 17:09 Primary care physician: Rohit Deluna MD Consults: 10/12/16 22:16 Consult to Occupational Therapy [CONS] Routine Comment: Evaluate, develop and implement POC Reason for Consult: Patient has history of poor ambulation due to Parkinsons disease and transient weakness. Assess for needs and recommendations post-discharge Consult to Physical Therapy [CONS] Routine Comment: Evaluate, develop and implement POC Reason for Consult: Patient has history of poor ambulation due to Parkinsons disease and transient weakness. Assess for needs and recommendations post-discharge 10/13/16 09:52 Consult to Speech Therapy [CONS] Routine Comment: Evaluate, develop and implement POC Reason for Consult: dysphagia Call Completed: No 10/13/16 10:32 Consult to [facility] [CONS] Routine Reason for SW Consult: discharge planning - Patient Status Disposition: Transfer SNF Condition: Fair Overall status at discharge: patient is back to baseline - Discharge Instructions Follow Up With: Rohit Deluna MD [Primary Care Provider] - Additional Instructions: Follow-up with primary care physician within the next 7 days. Complete 5 more doses of cefdinir. - Diet and Activity Activity: as per physical therapy, increase activity as tolerated Diet: low fat, low cholesterol (Neck to thick liquids recommended with mechanical diet) Hospital course: Ms. Real is a 70 year old female with a past medical history of COPD not oxygen dependent, dementia, hypertension, (Parkinson's disease) who presented to the ED with chief complaint of abdominal pain, nausea, and vomiting over the past several days. She stated that this has happened before but not for awhile. She also reports that these symptoms are consistent for times when she has a UTI which she reported a history of urinary urgency and frequency but denies burning with urination. Patient's WBC on admission is 16.2. CT scan of the abdomen/pelvis today w/IV contrast shows large hiatal hernia, indeterminate 1.6 left adrenal gland nodule likely an incidental benign adenoma in the absence of known malignancy or biochemical abnormality. Was diagnosed with a UTI and started on IV ceftriaxone 1,000 daily. The culture showed grossly mixed nakul and was unable to be interpreted. During her hospitalization the patient complained of choking on her food on and off. She was evaluated by the speech pathology services and recommended nectar thick liquids with mechanical diet due to dysphagia . - Time Spent with Patient Total time spent providing and/or coordinating discharge services: Greater than 30 minutes (40 min) - Constitutional Vitals: Temp Pulse Resp BP Pulse Ox 98 F 72 15 153/74 93 10/14/16 07:21 10/14/16 07:21 10/14/16 07:21 10/14/16 07:21 10/14/16 07:58 General appearance: Present: cooperative, A&O X 3, pleasant, no acute distress, answers questions appropriately - Head Head exam: Present: atraumatic, normocephalic - Eye Eye exam: Present: PERRL, conjuntiva pink, sclera anicteric Pupils: Present: PERRL - Neck Neck exam general surgery: Present: supple, trachea midline. Absent: lymphadenopathy - Respiratory Respiratory exam: Present: CTAB. Absent: accessory muscle use, rales, rhonchi, wheezes - Cardiovascular Cardiovascular exam: Present: RRR, +S1, +S2. Absent: diastolic murmur, gallop, rubs, systolic murmur - GI/Abdominal GI/Abdominal exam: Present: normal bowel sounds, soft, no peritoneal signs. Absent: distended, tenderness - Extremities Exam Extremities exam: Present: warm, radial pulses palpable and symmetrical. Absent : calf tenderness, cyanotic, pedal edema - Neurological Exam Neurological exam: Present: CN II-XII intact, oriented X3, no focal deficits. Absent: pronater drift, facial droop, speech deficit Additional comments: Parkinson tremors - Skin Skin exam: Present: dry, intact
[2016-10-14 11:11] VITALS: BP 144/77
--- NOTE | 2016-10-14 11:18 | Physician Discharge Referral ---
[facility] Referral Info Provider in Charge after Transfer: PCP Institutional Level of Care: Skilled - Diagnosis (1) UTI (urinary tract infection) Status: Acute (2) HTN (hypertension) Status: Chronic (3) COPD (chronic obstructive pulmonary disease) Status: Chronic (4) Parkinsons disease Status: Chronic (5) Weakness Status: Acute (6) Dysphagia Status: Acute - Transfer Medications Prescriptions: ALPRAZolam [Xanax 0.5 MG Tablet] 0.5 mg PO TID #30 Cefdinir [Omnicef] 300 mg PO BID #5 capsule HYDROcodone/Acet 5/325 mg [Archer 5-325 mg] 1 tab PO Q6H PRN #20 PRN Reason: Pain Home Medications: Aspirin 325 mg PO DAILY 03/23/15 [History] Folic Acid 0.4 mg PO DAILY 03/23/15 [History] Metoprolol [Lopressor] 25 mg PO BID 03/23/15 [History] Nitroglycerin [Nitrostat] 0.4 mg SL Q5M PRN 03/23/15 [History] Omeprazole [PriLOSEC] 20 mg PO DAILY 03/23/15 [History] Acetaminophen [Tylenol] 1,000 mg PO HS 10/12/16 [History] Acetaminophen [Tylenol] 650 mg PO Q8H PRN 10/12/16 [History] Albuterol Neb [Proventil Neb] 2.5 mg IH Q4H PRN 10/12/16 [History] Albuterol Sulfate [Proair Hfa] 2 puff IH Q4H PRN 10/12/16 [History] Beclomethasone Diprop 40mcg [QVAR 40 mcg] 2 puff IH BID 10/12/16 [History] Carbidopa/Levodopa 25/100 [Sinemet 25/100] 1 each PO 5XD 10/12/16 [History] Citalopram [CeleXA] 20 mg PO DAILY 10/12/16 [History] Cyanocobalamin (Vitamin B-12) [Vitamin B12] 1,000 mcg PO DAILY 10/12/16 [History ] Cyclobenzaprine HCl 5 mg PO TID 10/12/16 [History] Dicyclomine [Bentyl] 10 mg PO BID 10/12/16 [History] Docusate [Colace] 100 mg PO BID 10/12/16 [History] Donepezil [Aricept] 5 mg PO HS 10/12/16 [History] Ergocalciferol (VITAMIN D2) [Vitamin D2] 50,000 unit PO SA 10/12/16 [History] Fexofenadine HCl [Allergy Relief] 180 mg PO DAILY 10/12/16 [History] Gabapentin [Neurontin] 300 mg PO QAM 10/12/16 [History] Gabapentin [Neurontin] 600 mg PO HS 10/12/16 [History] Glycopyrrolate [Robinul] 0.5 mg PO BID 10/12/16 [History] Guaifenesin [Mucinex] 600 mg PO Q12H PRN 10/12/16 [History] Lisinopril/Hydrochlorothiazide [Zestoretic 10-12.5 mg Tablet] 1 each PO DAILY [History] Magnesium Hydroxide [Milk of Magnesia] 2,400 mg PO DAILY PRN 10/12/16 [History] Multivit,Th Iron,Other Min [Therems-M] 1 each PO DAILY 10/12/16 [History] Olopatadine HCl [Patanol] 2 drop BOTH EYES BID 10/12/16 [History] Ondansetron HCl [Zofran] 4 mg PO Q6H PRN 10/12/16 [History] Polyethylene Glycol 3350 [MiraLAX] 17 gm PO DAILY PRN 10/12/16 [History] Rivastigmine Tartrate (oral) [Exelon] 3 mg PO BID 10/12/16 [History] Scopolamine Patch [Transderm-Scop] 1.5 mg TD Q72H 10/12/16 [History] Sennosides/Docusate Sodium [Senna-S Tablet] 2 each PO BID 10/12/16 [History] cloNIDine HCl [CloNIDine HCl] 0.1 mg PO DAILY PRN 10/12/16 [History] ALPRAZolam [Xanax 0.5 MG Tablet] 0.5 mg PO TID #30 10/14/16 [Rx] Cefdinir [Omnicef] 300 mg PO BID #5 capsule 10/14/16 [Rx] HYDROcodone/Acet 5/325 mg [Archer 5-325 mg] 1 tab PO Q6H PRN #20 10/14/16 [Rx] Allergies/Adverse Reactions: 3 Allergy/AdvReac Type Severity Reaction Status Date / Time meperidine [From Demerol] Allergy Rash Verified 11/11/15 08:33 - Respiratory Orders Smoking Cessation: Smoking cessation has been advised. For more information, call the [place] Tobacco Quit Line at 9-921-CWVQ-NOW. - Advance Directives Code Status: Full Code - Diet Orders Mechanical Soft House Supplement per Dietary: Follow-up with primary care physician within the next 7 days. Complete 5 more doses of cefdinir. Neck thick liquids, mechanical chopped diet CERTIFICATION: I certify that the transfer of the above named patient to an Extended Care Facility is necessary for the continuing treatment of the diagnosis listed. The above information is true and accurate reflection of patient's current condition. Confidential - Redisclosure prohibited without a patient's written consent.
== END 2016-10-14 12:35 ==
LOC: EMEROO 14:19 → 3NENU 14:19 → SUATTDRO 17:09 → 3NENU 18:00 → 3ANU 10-13 19:41
PROVIDERS: ADMIT Family Medicine; ATTEND Internal Medicine

== ENCOUNTER 2016-12-28 11:11 | Inpatient (IN) ==
[2016-12-28] MEDS ORDERED: *HR* HYDROmorphone (PF) 1 MG/ML SYRINGE IVP ONE (11:24)
[2016-12-28] MEDS ORDERED: Ondansetron 4 MG/2 ML VIAL IVP ONE (11:24)
--- NOTE | 2016-12-28 11:29 | Emergency Department Note ---
Disposition Clinical Impression: Pulmonary congestion Sepsis Qualifiers: Sepsis type: sepsis due to unspecified organism Qualified Code(s): A41.9 - Sepsis, unspecified organism UTI (urinary tract infection) Qualifiers: Urinary tract infection type: site unspecified Hematuria presence: without hematuria Qualified Code(s): N39.0 - Urinary tract infection, site not specified Disposition: Admitted As Inpatient Condition: Fair Referrals: Rohit Deluna MD [Primary Care Provider] - Forms: ED Satisfaction Letter, Work/School Release Time of Disposition: 13:50 General Adult HPI - General Chief complaint: ED Abdominal Pain Stated complaint: abdominal pain Time Seen by Provider: 12/28/16 11:19 Source: patient, EMS Mode of arrival: EMS Limitations: other Nursing Notes Reviewed: Yes Vital Signs Reviewed: Yes - History of Present Illness HPI Narrative: Patient is a 71-year-old female who presents to [facility] ED with a chief complaint of abdominal pain and chest pain. Patient was seen yesterday at our facility and was diagnosed with a urinary tract infection and sent back to the half-way [facility] with a course of Keflex. Since then, patient has been reportedly more shaky and complaining of worsening abdominal and chest pain. Patient did have nausea with vomiting yesterday but is spitting up today. Past medical history significant for Parkinson's, COPD, pancreatitis, hyperlipidemia, hiatal hernia, adrenal adenoma, dysphagia. Onset (ago): day(s) Pain Severity: moderate Pain Scale: 6 Improves with: nothing Worsens with: nothing Associated symptoms: Reports: chest pain, cough, fever/chills, shortness of breath, weakness - Related Data Home Medications Medication Instructions Recorded Confirmed Aspirin 325 mg PO DAILY 03/23/15 10/12/16 Folic Acid 0.4 mg PO DAILY 03/23/15 10/12/16 Metoprolol [Lopressor] 25 mg PO BID 03/23/15 10/12/16 Nitroglycerin [Nitrostat] 0.4 mg SL Q5M PRN 03/23/15 10/12/16 Omeprazole [PriLOSEC] 20 mg PO DAILY 03/23/15 10/12/16 Acetaminophen [Tylenol] 1,000 mg PO HS 10/12/16 10/12/16 Acetaminophen [Tylenol] 650 mg PO Q8H PRN 10/12/16 10/12/16 Albuterol Neb [Proventil Neb] 2.5 mg IH Q4H PRN 10/12/16 10/12/16 Albuterol Sulfate [Proair Hfa] 2 puff IH Q4H PRN 10/12/16 10/12/16 Beclomethasone Diprop 40mcg [QVAR 2 puff IH BID 10/12/16 10/12/16 40 mcg] Carbidopa/Levodopa 25/100 [Sinemet 1 each PO 5XD 10/12/16 10/12/16 25/100] Citalopram [CeleXA] 20 mg PO DAILY 10/12/16 10/12/16 Cyanocobalamin (Vitamin B-12) 1,000 mcg PO DAILY 10/12/16 10/12/16 [Vitamin B12] Cyclobenzaprine HCl 5 mg PO TID 10/12/16 10/12/16 Dicyclomine [Bentyl] 10 mg PO BID 10/12/16 10/12/16 Docusate [Colace] 100 mg PO BID 10/12/16 10/12/16 Donepezil [Aricept] 5 mg PO HS 10/12/16 10/12/16 Ergocalciferol (VITAMIN D2) 50,000 unit PO SA 10/12/16 10/12/16 [Vitamin D2] Fexofenadine HCl [Allergy Relief] 180 mg PO DAILY 10/12/16 10/12/16 Gabapentin [Neurontin] 300 mg PO QAM 10/12/16 10/12/16 Gabapentin [Neurontin] 600 mg PO HS 10/12/16 10/12/16 Glycopyrrolate [Robinul] 0.5 mg PO BID 10/12/16 10/12/16 Guaifenesin [Mucinex] 600 mg PO Q12H PRN 10/12/16 10/12/16 Lisinopril/Hydrochlorothiazide 1 each PO DAILY 10/12/16 10/12/16 [Zestoretic 10-12.5 mg Tablet] Magnesium Hydroxide [Milk of 2,400 mg PO DAILY PRN 10/12/16 10/12/16 Magnesia] Multivit,Th Iron,Other Min 1 each PO DAILY 10/12/16 10/12/16 [Therems-M] Olopatadine HCl [Patanol] 2 drop BOTH EYES BID 10/12/16 10/12/16 Ondansetron HCl [Zofran] 4 mg PO Q6H PRN 10/12/16 10/12/16 Polyethylene Glycol 3350 [MiraLAX] 17 gm PO DAILY PRN 10/12/16 10/12/16 Rivastigmine Tartrate (oral) 3 mg PO BID 10/12/16 10/12/16 [Exelon] Scopolamine Patch [Transderm-Scop] 1.5 mg TD Q72H 10/12/16 10/12/16 Sennosides/Docusate Sodium 2 each PO BID 10/12/16 10/12/16 [Senna-S Tablet] cloNIDine HCl [CloNIDine HCl] 0.1 mg PO DAILY PRN 10/12/16 10/12/16 Previous Rx's Medication Instructions Recorded ALPRAZolam [Xanax 0.5 MG Tablet] 0.5 mg PO TID #30 10/14/16 Cefdinir [Omnicef] 300 mg PO BID #5 capsule 10/14/16 HYDROcodone/Acet 5/325 mg [[place] 1 tab PO Q6H PRN #20 10/14/16 5-325 mg] Ondansetron ODT [Zofran ODT] 4 mg SL Q6HR PRN #14 tab.rapdis 12/27/16 cephALEXin [Keflex] 500 mg PO BID #20 capsule 12/27/16 Allergies Allergy/AdvReac Type Severity Reaction Status Date / Time meperidine [From Demerol] Allergy Rash Verified 12/28/16 11:14 All systems ED: reviewed and negative except as stated. Past Medical History - Past Medical History Attestation: Yes The following information was validated with the patient. Source: patient Medical history: Reports: COPD, dementia, hypertension, other Psychiatric history: Reports: anxiety [employer] history: Reports: no [employer] history - Social History Smoking Status: Former smoker Smokeless Tobacco Status: No Alcohol use: Reports: none Drug use: Reports: none Physical Exam - General Limitations: other (dementia/parkinsons) General appearance: alert, cachectic - Head Head exam: atraumatic, normocephalic, normal inspection - Eye Eye exam: Present: EOMI - ENT ENT exam: normal exam, normal oropharynx, mucous membranes moist - Neck Neck exam: Present: normal inspection, full ROM, trachea midline - Chest Chest inspection: Present: normal inspection, symmetric chest wall rise - Respiratory Respiratory exam: Present: other (Bilateral rhonchi throughout) - Cardiovascular Cardiovascular exam: Present: regular rate, normal rhythm, normal heart sounds - Abdominal Exam Abdominal exam: Present: soft, Non-Tender. Absent: tenderness, distention, guarding, rebound, rigidity - Extremities Exam Extremities exam: Present: normal inspection, full ROM. Absent: tenderness, pedal edema - Back Exam Back exam: Present: normal inspection, full ROM. Absent: tenderness - Neurological Exam Neurological exam: Present: alert - Psychiatric Psychiatric exam: Present: normal affect, normal mood - Skin Skin exam: Present: intact, other (Cool, clammy) Course Course Narrative: Patient seen and examined. Generalized abdominal pain and chest pain. Was seen here yesterday and diagnosed with urinary tract infection. Upon examination here, patient appears sickly and is cool and clammy. We will do critical care workup including basic labs, troponin, lactic acid, LFTs, lipase, urinalysis, blood cultures. Patient is hypertensive at this time with a blood pressure of 190s over 112. We will get some pain medication and nausea medication to get her more comfortable and see if her blood pressure comes down a little bit. - Reevaluation(s) Reevaluation #1: Lab work shows leukocytosis of 17,000, potassium of 3.3. We will go ahead and give 40 mEq through the IV. Urine analysis from yesterday did show urinary tract infection. We will go ahead and place on IV Levaquin. Patient needs criteria for sepsis. However due to the pulmonary vascular congestion on her chest x-ray, we will hold off on giving IV fluid boluses at this time. We will give one dose of 40 mg Lasix. Patient is currently hypertensive. Will admit for UTI, sepsis, pulmonary congestion. Discussed with hospitalist Dr. Hernandez who has accepted pt for admission. Time: 13:48 Vital Signs Temperature 96.6 F L 12/28/16 11:14 Pulse Rate 98 12/28/16 11:14 Respiratory Rate 18 12/28/16 11:14 Blood Pressure 198/114 12/28/16 11:14 O2 Sat by Pulse Oximetry 98 12/28/16 11:14 Temperature 96.6 F L 12/28/16 11:14 Pulse Rate 96 12/28/16 13:00 Respiratory Rate 15 12/28/16 13:00 Blood Pressure 187/107 12/28/16 13:00 O2 Sat by Pulse Oximetry 95 12/28/16 13:00 Oxygen Delivery Oxygen Delivery Nasal Cannula Medical Decision Making - Medical Records Medical records reviewed: Yes I reviewed the patient's medical records. - Lab Data Lab results reviewed: Yes I reviewed the patient's lab results. Result diagrams: 12/28/16 12:32 12/28/16 12:32 Lab Results 12/28/16 12/28/16 12/28/16 Range/Units 11:56 12:32 12:32 WBC 17.2 H (4.3-11.1) K/mcL RBC 4.35 (3.82-4.97) M/mcL Hgb 13.1 (11.5-15.4) g/dL Hct 39.0 (35.3-44.9) % MCV 89.7 (83.0-100.0) fL MCH 30.1 (28.0-33.3) pg MCHC 33.6 (31.6-35.5) g/dL RDW 12.4 (11.5-14.5) % Plt Count 252 (140-400) K/mcL MPV 9.2 L (9.4-12.4) fL Immature Gran % 0.5 (0-4) % Seg Neutrophils % 89.8 % Lymphocytes % 6.0 % Monocytes % 3.3 % Eosinophils % 0.2 % Basophils % 0.2 % Neutrophils # 15.4 H (1.6-8.9) K/mcL Lymphocytes # 1.0 (0.6-4.6) K/mcL Monocytes # 0.6 (0.0-1.3) K/mcL Eosinophils # 0.0 (0.0-0.6) K/mcL Basophils # 0.0 (0.0-0.2) K/mcL Sodium 139 (136-145) mEq/L Potassium 3.3 L (3.5-4.5) mEq/L Chloride 105 (98-109) mEq/L Carbon Dioxide 23 (19-29) mEq/L BUN 12 (7-20) mg/dL Creatinine 0.73 (0.57-1.11) mg/dL Est GFR ( Amer) > 60 (> 60) Est GFR (Non-Af Amer) > 60 (> 60) BUN/Creatinine Ratio 16 (6-26) Glucose 186 H (70-99) mg/dL Calculated Osmolality 293 (280-300) Lactic Acid (0.5-2.2) mmol/L Calcium 9.4 (8.6-10.8) mg/dL Phosphorus 2.7 (2.3-4.7) mg/dL Magnesium 2.1 (1.6-2.6) mg/dL Total Bilirubin 0.3 (0.2-1.2) mg/dL Direct Bilirubin 0.1 (0.0-0.5) mg/dL Indirect Bilirubin 0.2 (0.0-1.2) mg/dL AST 19 (5-34) Units/L ALT 10 (0-55) Units/L Alkaline Phosphatase 80 (38-126) Units/L Troponin I (0-0.03) ng/mL B-Natriuretic Peptide (0-100) pg/mL Serum Total Protein 7.1 (6.0-8.3) g/dL Albumin 3.9 (3.5-5.0) g/dL Globulin 3.2 (2.4-3.5) g/dL Albumin/Globulin Ratio 1.2 (1.1-2.2) Lipase 40 (8-78) Units/L Urine Color Yellow (Yellow) Urine Clarity Clear (Clear) Urine pH 7.0 (5.0-8.0) pH Units Ur Specific [place] 1.018 (1.010-1.025) Urine Protein Trace (Neg-Trace) mg/dL Urine Glucose (UA) 100 H (Normal) mg/dL Urine Ketones Trace H (Negative) mg/dL Urine Blood Negative (Negative) Urine Nitrite Negative (Negative) Urine Bilirubin Negative (Negative) Urine Urobilinogen Normal (Normal) mg/dL Ur Leukocyte Esterase Moderate H (Negative) Urine Microscopic RBC 0-3 (0-3) per hpf Urine Microscopic WBC 50-100 H (0-3) per hpf Ur Squamous Epith Cells Many H (None-Few) per lpf Urine Bacteria None Seen (None-Few) per hpf Hyaline Casts None Seen (None-Few) per lpf Ur Culture Indicated? YES A (NO) 12/28/16 12/28/16 12/28/16 Range/Units 12:32 12:32 12:32 WBC (4.3-11.1) K/mcL RBC (3.82-4.97) M/mcL Hgb (11.5-15.4) g/dL Hct (35.3-44.9) % MCV (83.0-100.0) fL MCH (28.0-33.3) pg MCHC (31.6-35.5) g/dL RDW (11.5-14.5) % Plt Count (140-400) K/mcL MPV (9.4-12.4) fL Immature Gran % (0-4) % Seg Neutrophils % % Lymphocytes % % Monocytes % % Eosinophils % % Basophils % % Neutrophils # (1.6-8.9) K/mcL Lymphocytes # (0.6-4.6) K/mcL Monocytes # (0.0-1.3) K/mcL Eosinophils # (0.0-0.6) K/mcL Basophils # (0.0-0.2) K/mcL Sodium (136-145) mEq/L Potassium (3.5-4.5) mEq/L Chloride (98-109) mEq/L Carbon Dioxide (19-29) mEq/L BUN (7-20) mg/dL Creatinine (0.57-1.11) mg/dL Est GFR ( Amer) (> 60) Est GFR (Non-Af Amer) (> 60) BUN/Creatinine Ratio (6-26) Glucose (70-99) mg/dL Calculated Osmolality (280-300) Lactic Acid 1.2 (0.5-2.2) mmol/L Calcium (8.6-10.8) mg/dL Phosphorus (2.3-4.7) mg/dL Magnesium (1.6-2.6) mg/dL Total Bilirubin (0.2-1.2) mg/dL Direct Bilirubin (0.0-0.5) mg/dL Indirect Bilirubin (0.0-1.2) mg/dL AST (5-34) Units/L ALT (0-55) Units/L Alkaline Phosphatase (38-126) Units/L Troponin I 0.02 (0-0.03) ng/mL B-Natriuretic Peptide 66 (0-100) pg/mL Serum Total Protein (6.0-8.3) g/dL Albumin (3.5-5.0) g/dL Globulin (2.4-3.5) g/dL Albumin/Globulin Ratio (1.1-2.2) Lipase (8-78) Units/L Urine Color (Yellow) Urine Clarity (Clear) Urine pH (5.0-8.0) pH Units Ur Specific [place] (1.010-1.025) Urine Protein (Neg-Trace) mg/dL Urine Glucose (UA) (Normal) mg/dL Urine Ketones (Negative) mg/dL Urine Blood (Negative) Urine Nitrite (Negative) Urine Bilirubin (Negative) Urine Urobilinogen (Normal) mg/dL Ur Leukocyte Esterase (Negative) Urine Microscopic RBC (0-3) per hpf Urine Microscopic WBC (0-3) per hpf Ur Squamous Epith Cells (None-Few) per lpf Urine Bacteria (None-Few) per hpf Hyaline Casts (None-Few) per lpf Ur Culture Indicated? (NO) - Radiology Data Radiology results reviewed: Yes I reviewed the patient's radiology results. Chest X-Ray 12/28/16 11:20 IMPRESSION: 1. Minimal bibasilar atelectasis. 2. Pulmonary vascular congestion, chronic interstitial change, and/or central vascular crowding. 3. Large hiatal hernia filled with gas likely within stomach with no findings of gastric volvulus on yesterday's CT. D/ / Timothy Newman MD / Timothy Newman MD Interpreting Provider: Timothy Newman MD - EKG Data EKG #1 EKG attestation: Yes I reviewed and interpreted this EKG. EKG results narrative: EKG done at 1117 shows normal sinus rhythm with a rate of 93 beats per minute. Normal axis. No acute ST elevation or depression. Attestation Statement - Attestation Attestation: I examined this patient and my medical decision-making was reviewed with the Resident Physician. I agree with the documented findings, disposition and treatment plan as described except to the extent set forth below. Patient to ED from half-way. She suffered nausea vomiting abdominal pain. Swelling and not feeling well. She was seen yesterday for the same. She had a CT head and abdomen are unremarkable. She was diagnosed with UTI and sent back to the half-way. They state she has declined today. On exam she is awake alert. Sweaty. Diffuse abdominal tenderness without guarding. Abdomen is soft. Lungs with rales. Plan. She will appear fluid overloaded on her chest x -ray. She has a white count was gone up. Still with the UTI. Chest x-ray is clear and just shows hiatal hernia. She has hypo-thermic at 96. Will meet sepsis criteria. Admit to medicine. IV antibiotic. 35 minutes of critical care exclusive of separately billable procedures.
[2016-12-28] MEDS ORDERED: *HR* HYDROmorphone (PF) 1 MG/ML SYRINGE ONE (11:35)
[2016-12-28] MEDS ORDERED: Ondansetron 4 MG/2 ML VIAL ONE (11:37)
[2016-12-28 12:05] LABS: Bilirubin,Urine Negative (Negative); Blood,Urine Negative (Negative); Clarity,Urine Clear (Clear); Color,Urine Yellow (Yellow); Glucose,Urine (UA) 100 mg/dL (Normal); Ketones,Urine Trace mg/dL (Negative); Leukocyte Esterase,Urine Moderate (Negative); Nitrite,Urine Negative (Negative); Protein,Urine Trace mg/dL (Neg-Trace); Specific Gravity,Urine 1.018 (1.010-1.025); Urobilinogen,Urine Normal (Normal)
[2016-12-28 12:09] LABS: Bacteria,Urine None Seen per hpf (None-Few); Hyaline Casts,Urine None Seen per lpf (None-Few); RBC,Urine 0-3 per hpf (0-3); Squamous Epithelial Cell,Urine Many per lpf (None-Few); WBC,Urine 50-100 per hpf (0-3)
[2016-12-28 12:41] LABS: Basophils % 0.2 %; Eosinophils % 0.2 %; Hemoglobin 13.1 g/dL (11.5-15.4); Immature Granulocytes % 0.5 % (0-4); Mean Corpuscular HGB Conc 33.6 g/dL (31.6-35.5); Mean Corpuscular Hemoglobin 30.1 pg (28.0-33.3); Mean Corpuscular Volume 89.7 fL (83.0-100.0); Mean Platelet Volume 9.2 fL (9.4-12.4); Monocytes # 0.6 K/mcL (0.0-1.3); Monocytes % 3.3 %; Neutrophils # 15.4 K/mcL (1.6-8.9); Platelet Count 252 K/mcL (140-400); Red Blood Count 4.35 M/mcL (3.82-4.97); Red Cell Distribution Width 12.4 % (11.5-14.5); Segmented Neutrophils % 89.8 %
[2016-12-28 12:56] LABS: Alanine Aminotransferase 10 Units/L (0-55); Albumin 3.9 g/dL (3.5-5.0); Albumin/Globulin Ratio 1.2 (1.1-2.2); Alkaline Phosphatase 80 Units/L (38-126); Aspartate Amino Transferase 19 Units/L (5-34); BUN/Creatinine Ratio 16 (6-26); Bilirubin,Direct 0.1 mg/dL (0.0-0.5); Bilirubin,Indirect 0.2 mg/dL (0.0-1.2); Bilirubin,Total 0.3 mg/dL (0.2-1.2); Blood Urea Nitrogen 12 mg/dL (7-20); Calcium 9.4 mg/dL (8.6-10.8); Carbon Dioxide 23 mEq/L (19-29); Chloride 105 mEq/L (98-109); Globulin 3.2 g/dL (2.4-3.5); Glucose 186 mg/dL (70-99); Lipase 40 Units/L (8-78); Osmolality,Calculated 293 (280-300); Potassium 3.3 mEq/L (3.5-4.5); Sodium 139 mEq/L (136-145); Total Protein 7.1 g/dL (6.0-8.3); eGFR For African Americans > 60 (> 60); eGFR For Non-African Americans > 60 (> 60)
[2016-12-28] MEDS ORDERED: Levofloxacin 750 MG/150 ML 750 MG/150 ML BAG IVPB ONE (13:18)
[2016-12-28] MEDS ORDERED: Furosemide 40 MG/4 ML VIAL IVP ONE (13:20)
[2016-12-28 13:34] LABS: Magnesium 2.1 mg/dL (1.6-2.6); Phosphorous 2.7 mg/dL (2.3-4.7)
[2016-12-28] MEDS ORDERED: *HR* Promethazine 25 MG/ML VIAL IVP ONE (13:35)
[2016-12-28] MEDS ORDERED: 0.9 % Sodium Chloride 250 ML ONE (13:36)
[2016-12-28] MEDS ORDERED: Potassium Chloride 40 MEQ, Lidocaine 1% 2 ML in D5% in Water 500 ML IVPB ONE (13:44)
--- NOTE | 2016-12-28 14:54 | Event Note ---
Date of Encounter: 12/28/16 Time of Encounter: 14:51 Patient seen and examined with nurse practitioner. Was seen in the ER yesterday for urinary tract infection and was discharged on keflex, notices worsening of her symptoms. Patient has also been short of breath and was diuresis and emergency room. Patient speech slurred, without focal weakness, so will check CT scan of the head and will also get swallow evaluation for concern of possible aspiration. We will start the patient on levofloxacin PT/ OT.
[2016-12-28] MEDS ORDERED: Ondansetron 4 MG/2 ML VIAL IVP PRN (15:54)
[2016-12-28] MEDS ORDERED: Naloxone 0.4 MG/ML INJ IVP PRN (15:54)
[2016-12-28] MEDS ORDERED: *HR* Metoprolol 5 MG/5 ML VIAL IVP PRN (16:08)
[2016-12-28] MEDS ORDERED: *HR* Morphine 2 MG/ML SYRINGE IVP PRN (16:18)
[2016-12-28] MEDS ORDERED: Albuterol 2.5 MG/3 ML NEBULIZER IH PRN (16:18)
--- NOTE | 2016-12-28 16:24 | Internal Med History&Physical ---
Date of Encounter: 12/28/16 Time of Encounter: 16:20 Assessment and Plan (1) UTI (urinary tract infection) Current visit: Yes Status: Acute Seen at [facility] yesterday and diagnosed with UTI. Sent back to [facility] with Keflex however returns today with N/V, increasing abdominal pain, leukocytosis. She does not appear septic at this time, we will admit for treatment of UTI with IV antibiotic therapy. Start Zosyn every 8 hours We will hold off on IV fluids for now due to pulmonary vascular congestion CBC/CMP in the morning Qualifiers: Urinary tract infection type: site unspecified Hematuria presence: without hematuria Qualified Code(s): N39.0 - Urinary tract infection, site not specified (2) Abdominal pain Current visit: Yes Status: Acute RLQ, LLQ and suprapubic abdominal pain See plan above Qualifiers: Abdominal location: lower abdomen, unspecified Qualified Code(s): R10.30 - Lower abdominal pain, unspecified (3) Aspiration pneumonia Current visit: Yes Status: Suspected Nausea and vomiting with worsening dysphagia. Now short of breath with nonproductive cough. 2 prior history of dysphagia and Parkinson's patients risk for aspiration pneumonia. Failed formal bedside swallow evaluation via speech therapy Barium swallow study to be completed-nothing by mouth, advance diet based upon recommendations following barium swallow study Zosyn IV every 8 Zofran Head of bed to stay elevated above 30 degrees Qualifiers: Aspiration pneumonia type: unspecified Laterality: unspecified laterality Lung location: unspecified part of lung Qualified Code(s): J69.0 - Pneumonitis due to inhalation of food and vomit (4) Pulmonary congestion Current visit: Yes Status: Acute Today began experiencing shortness of breath. Chest x-ray reveals pulmonary vascular congestion. Was given Lasix 40 mg IV push in the ED. Assessment lungs are clear diminished crackles noted. Hold off on diuresis for now. (5) Nausea & vomiting Current visit: Yes Status: Resolved Reports nausea and vomiting for the last few days. Last vomited this morning. Has not vomited since receiving Phenergan and Zofran in the ED. Continue antiemetics. Zofran 8 mg every 6 hours. Maintain head of bed elevated position greater than 30 degrees due to risk for aspiration pneumonia Qualifiers: Vomiting type: cyclical vomiting Vomiting Intractability: non-intractable Qualified Code(s): G43.A0 - Cyclical vomiting, not intractable (6) HTN (hypertension) Current visit: Yes Status: Chronic Initial systolic blood pressure upon arrival was 190s. Blood pressure has improved but remains systolic blood pressures of 166. Unable to give by mouth blood pressure medications due to failure of formal bedside swallow. We will start metoprolol 5 mg IV push every 6 hours for his SBP greater than 150. Resume home blood pressure medications based on recommendations following barium swallow Qualifiers: Hypertension type: essential hypertension Qualified Code(s): I10 - Essential (primary) hypertension (7) COPD (chronic obstructive pulmonary disease) Current visit: Yes Status: Chronic In no respiratory distress, continue Qvar at home dose, and duo nebs and albuterol Qualifiers: COPD type: unspecified COPD Qualified Code(s): J44.9 - Chronic obstructive pulmonary disease, unspecified (8) Parkinsons disease Current visit: Yes Status: Chronic Patient remains nothing by mouth due to dysphagia. Formal bedside swallow done per speech therapy with recommendation of nothing by mouth until barium swallow completed. We will hold all by mouth meds for now. Plan is to resume home present medications based upon recommendation following barium swallow (9) Weakness Current visit: Yes Status: Acute Weakness likely secondary to vomiting, UTI and possible aspirate pneumonia. Additionally she does have a diagnosis of Parkinson's. Zofran Holding IV fluids for now due to pulmonary vascular congestion (10) Dysphagia Current visit: Yes Status: Acute Complains of worsening difficulty swallowing. Upon last admission was recommended to have a nectar thick liquids. She reports she has been drinking thin liquids while at the [facility]S [facility] 234 BEDS AT THE [facility]. Formal speech eval recommends nothing by mouth and barium swallow Advance diet based on results appearance Nothing by mouth for now Patient complains of some difficulty with swallowing. Qualifiers: Dysphagia type: unspecified Qualified Code(s): R13.10 - Dysphagia, unspecified (11) DVT prophylaxis Current visit: Yes Status: Acute Heparin 5000 subcutaneous every 12 hours Internal Medicine - H&P: HPI Chief complaint: UTI, weakness, dysphagia Admitted From: Home Plans for Post Hospital Care: Home History of present illness: Ms. Real is a 71 year old female with a PMH of Parkinson's, dementia, COPD, pancreatitis, HLD, hiatal hernia, adrenal adenoma, anxiety and dysphagia. She presents to [facility] today with nausea, vomiting, abdominal and suprapubic pain. She was seen yesterday in ED and diagnosed with UTI and sent home on Keflex. She returns today with worsening abdominal pain and nausea/vomiting. Was diagnosed with dysphagia upon last admission and recommended to go home with nectar thick liquids, however, she reports that she has been drinking thin liquids at the [facility] 234 BEDS AT THE [facility]. Patient ALSO complaining of shortness of breath. Chest x- ray reveals minimal bibasilar atelectasis, pulmonary vascular congestion. Workup revealed leukocytosis 17.2. She admits to fever, fatigue, shortness of breath, nausea vomiting, dysuria and mid back pain. Being admitted for further workup and evaluation Past Med Surg Social Fam HX - Past Medical History Medical history: COPD, dementia, hypertension, other Psychiatric history: anxiety - Social History Smoking Status: Former smoker Smokeless Tobacco Status: No Alcohol use: none Drug use: none - Family History Father Family Member Ethnicity: Non- Living Status: Mother Family Member Ethnicity: Non- Living Status: Brother Family Member Ethnicity: Non- Living Status: Hx Family Cancer: Yes (Unknown type) Sister Family Member Ethnicity: Non- Living Status: Hx Family Cardiac Disorders: Yes (HD) Internal Medicine - H&P: Meds Aspirin 325 mg PO DAILY 03/23/15 [History] Folic Acid 0.4 mg PO DAILY 03/23/15 [History] Metoprolol [Lopressor] 25 mg PO BID 03/23/15 [History] Nitroglycerin [Nitrostat] 0.4 mg SL Q5M PRN 03/23/15 [History] Omeprazole [PriLOSEC] 20 mg PO DAILY 03/23/15 [History] Acetaminophen [Tylenol] 1,000 mg PO HS 10/12/16 [History] Acetaminophen [Tylenol] 650 mg PO Q8H PRN 10/12/16 [History] Albuterol Neb [Proventil Neb] 2.5 mg IH Q4H PRN 10/12/16 [History] Albuterol Sulfate [Proair Hfa] 2 puff IH Q4H PRN 10/12/16 [History] Beclomethasone Diprop 40mcg [QVAR 40 mcg] 2 puff IH BID 10/12/16 [History] Carbidopa/Levodopa 25/100 [Sinemet 25/100] 1 each PO 5XD 10/12/16 [History] Cyanocobalamin (Vitamin B-12) [Vitamin B12] 1,000 mcg PO DAILY 10/12/16 [History ] Cyclobenzaprine HCl 5 mg PO TID 10/12/16 [History] Dicyclomine [Bentyl] 10 mg PO BID 10/12/16 [History] Donepezil [Aricept] 5 mg PO HS 10/12/16 [History] Ergocalciferol (VITAMIN D2) [Vitamin D2] 50,000 unit PO SA 10/12/16 [History] Fexofenadine HCl [Allergy Relief] 180 mg PO DAILY 10/12/16 [History] Gabapentin [Neurontin] 300 mg PO QAM 10/12/16 [History] Gabapentin [Neurontin] 600 mg PO HS 10/12/16 [History] Glycopyrrolate [Robinul] 0.5 mg PO BID 10/12/16 [History] Guaifenesin [Mucinex] 600 mg PO Q12H PRN 10/12/16 [History] Lisinopril/Hydrochlorothiazide [Zestoretic 10-12.5 mg Tablet] 1 each PO DAILY [History] Magnesium Hydroxide [Milk of Magnesia] 2,400 mg PO DAILY PRN 10/12/16 [History] Multivit,Th Iron,Other Min [Therems-M] 1 each PO DAILY 10/12/16 [History] Olopatadine HCl [Patanol] 2 drop BOTH EYES BID 10/12/16 [History] Ondansetron HCl [Zofran] 4 mg PO Q6H PRN 10/12/16 [History] Polyethylene Glycol 3350 [MiraLAX] 17 gm PO DAILY PRN 10/12/16 [History] Rivastigmine Tartrate (oral) [Exelon] 3 mg PO BID 10/12/16 [History] Scopolamine Patch [Transderm-Scop] 1.5 mg TD Q72H 10/12/16 [History] Sennosides/Docusate Sodium [Senna-S Tablet] 2 each PO BID 10/12/16 [History] ALPRAZolam [Xanax 0.5 MG Tablet] 0.5 mg PO TID #30 10/14/16 [Rx] HYDROcodone/Acet 5/325 mg [Lillian 5-325 mg] 1 tab PO Q6H PRN #20 10/14/16 [Rx] Ropinirole HCl [Requip] 0.25 mg PO HS 12/28/16 [History] Sertraline [Zoloft] 50 mg PO DAILY 12/28/16 [History] 3 Allergy/AdvReac Type Severity Reaction Status Date / Time meperidine [From Demerol] Allergy Rash Verified 12/28/16 11:14 All Systems PM: A 10-system review of systems was performed and is negative for pertinent findings except as documented above in the HPI. - Constitutional Constitutional: weakness, no chills, no night sweats - Cardiovascular Cardiovascular ROS IM: as per HPI, dyspnea, no chest pain, no diaphoresis, no lightheadedness, no palpitations, no syncope - Respiratory Respiratory: as per HPI, dyspnea, no cough, no wheezing, no excessive phlegm production - Gastrointestinal Gastrointestinal: as per HPI, abdominal pain, dysphagia, nausea, vomiting, no coffee ground emesis, no constipation, no diarrhea, no early satiety, no hematemesis, no hematochezia - Genitourinary Genitourinary: as per HPI, dysuria, no change in urinary stream, no hematuria, no urinary frequency, no urinary hesitancy - Musculoskeletal Musculoskeletal ROS IM: back pain - Integumentary Integumentary IM: no rash, no unusual bruising - Neurological Neurological ROS: no confusion, no convulsions, no focal weakness, no headache(s ), no numbness, no tingling, no tremor(s) - Constitutional Vitals: Temp Pulse Resp BP Pulse Ox 96.6 F L 91 18 162/82 98 12/28/16 11:14 12/28/16 14:09 12/28/16 14:12 12/28/16 14:12 12/28/16 14:09 General appearance: Present: cooperative, A&O X 3, no acute distress, answers questions appropriately - Head Head exam: Present: atraumatic, normocephalic - Eye Eye exam: Present: EOMI, PERRL, conjuntiva pink, sclera anicteric Pupils: Present: PERRL - Neck Neck exam general surgery: Present: supple, trachea midline. Absent: lymphadenopathy - Respiratory Respiratory exam: Present: decreased breath sounds, CTAB. Absent: accessory muscle use, rales, rhonchi, wheezes, tachypnea - Cardiovascular Cardiovascular exam: Present: RRR, +S1, +S2. Absent: bradycardia, diastolic murmur, gallop, rubs, systolic murmur, tachycardia - GI/Abdominal GI/Abdominal exam: Present: normal bowel sounds, soft, no peritoneal signs. Absent: distended, tenderness - Extremities Exam Extremities exam: Present: warm, radial pulses palpable and symmetrical. Absent : calf tenderness, cyanotic, normal capillary refill, pedal edema, tenderness - Neurological Exam Neurological exam: Present: CN II-XII intact, oriented X3, no focal deficits. Absent: pronater drift, facial droop, speech deficit Internal Med - H&P Results - Labs CBC & Chem 7: 12/28/16 12:32 12/28/16 12:32 - Diagnostic Studies Chest x-ray Status: image reviewed by me Additional comments: Minimal bibasilar atelectasis, pulmonary congestion
[2016-12-28] MEDS: Piperacillin/Tazobactam 3.375 GM in D5% in Water (Mini-Bag+) 100 ML IVPB SCH (17:25)
[2016-12-28] MEDS: Ipratropium/Albuterol Neb 3 ML IH SCH ×2 (20:01→23:05)
[2016-12-28] MEDS: *HR* LORazepam 2 MG/ML VIAL IVP PRN (22:02)
[2016-12-28] MEDS: *HR* Metoprolol 5 MG/5 ML VIAL IVP SCH (23:54)
[2016-12-29] MEDS: Piperacillin/Tazobactam 3.375 GM in D5% in Water (Mini-Bag+) 100 ML IVPB SCH (01:03)
[2016-12-29] MEDS: Ipratropium/Albuterol Neb 3 ML IH SCH ×6 (03:06→23:43)
[2016-12-29 04:15] LABS: Basophils % 0.3 %; Eosinophils # 0.2 K/mcL (0.0-0.6); Eosinophils % 1.6 %; Hematocrit 37.5 % (35.3-44.9); Hemoglobin 12.5 g/dL (11.5-15.4); Immature Granulocytes % 0.3 % (0-4); Lymphocytes # 2.1 K/mcL (0.6-4.6); Lymphocytes % 20.7 %; Mean Corpuscular HGB Conc 33.3 g/dL (31.6-35.5); Mean Corpuscular Hemoglobin 29.4 pg (28.0-33.3); Mean Corpuscular Volume 88.2 fL (83.0-100.0); Mean Platelet Volume 9.5 fL (9.4-12.4); Monocytes % 9.7 %; Neutrophils # 6.8 K/mcL (1.6-8.9); Platelet Count 239 K/mcL (140-400); Red Blood Count 4.25 M/mcL (3.82-4.97); Red Cell Distribution Width 12.8 % (11.5-14.5); Segmented Neutrophils % 67.4 %
[2016-12-29 04:28] LABS: Alanine Aminotransferase 18 Units/L (0-55); Albumin 3.2 g/dL (3.5-5.0); Alkaline Phosphatase 69 Units/L (38-126); Aspartate Amino Transferase 20 Units/L (5-34); BUN/Creatinine Ratio 15 (6-26); Bilirubin,Total 0.5 mg/dL (0.2-1.2); Blood Urea Nitrogen 13 mg/dL (7-20); Calcium 9.1 mg/dL (8.6-10.8); Carbon Dioxide 27 mEq/L (19-29); Chloride 103 mEq/L (98-109); Globulin 3.3 g/dL (2.4-3.5); Glucose 109 mg/dL (70-99); Osmolality,Calculated 289 (280-300); Potassium 3.7 mEq/L (3.5-4.5); Sodium 139 mEq/L (136-145); Total Protein 6.5 g/dL (6.0-8.3); eGFR For African Americans > 60 (> 60); eGFR For Non-African Americans > 60 (> 60)
[2016-12-29] MEDS ORDERED: Famotidine 20 MG/2 ML VIAL IVP SCH (06:00)
[2016-12-29] MEDS ORDERED: NON-FORMULARY MEDICATION 1 EACH EACH (Magnesium Hydroxide [Milk Of Magnesia] 2,400 MG) PO PRN (08:02)
[2016-12-29] MEDS ORDERED: *HR* HYDROcodone/Acet 5/325 mg TABLET PO PRN (08:02)
[2016-12-29] MEDS ORDERED: (Folic Acid [Folic Acid] 0.4 MG) PO SCH (09:00)
[2016-12-29] MEDS ORDERED: OLOPATADINE HCL OP SCH (09:00)
[2016-12-29] MEDS ORDERED: MOM Conc 10 ML UD.LIQ PO PRN (09:19)
--- NOTE | 2016-12-29 09:30 | Internal Med Progress Note ---
Date of Encounter: 12/29/16 Time of Encounter: 09:05 - Assessment and plan (1) Dysphagia Current Visit: Yes Status: Acute Assessment and plan: Acute on chronic. Dismay also be progression of her Parkinson's disease and dementia. Attempts at tube placement i.e. G-tube or NG tube failed. Patient is unable to follow commands. Videofluoroscopy shows multiple aspirations. We will discuss with family regarding PEG tube placement. Special therapy will continue to follow.crescencio to follow Attempted to call Next of kin listed per chart Yesica Yates, on [phone], with no response. Left a voice message for call back. Also called emergency contact Latha Leon [phone]. Stated by respondent its a home phone, and business owner/engineer isnt home, left a number for call back Qualifiers: Dysphagia type: unspecified Qualified Code(s): R13.10 - Dysphagia, unspecified (2) UTI (urinary tract infection) Current Visit: Yes Status: Ruled-out Assessment and plan: Ruled out. Urine culture with no growth. Qualifiers: Urinary tract infection type: site unspecified Hematuria presence: without hematuria Qualified Code(s): N39.0 - Urinary tract infection, site not specified (3) DVT prophylaxis Current Visit: Yes Status: Acute Assessment and plan: Subcutaneous heparin (4) HTN (hypertension) Current Visit: Yes Status: Chronic Assessment and plan: Controlled at this time. Patient is nothing by mouth due to dysphagia with aspiration. Continue metoprolol IV every 6 hours. Continue to monitor. Qualifiers: Hypertension type: essential hypertension Qualified Code(s): I10 - Essential (primary) hypertension (5) COPD (chronic obstructive pulmonary disease) Current Visit: Yes Status: Chronic Assessment and plan: Not in exacerbation at this time. DuoNeb when necessary. Qualifiers: COPD type: unspecified COPD Qualified Code(s): J44.9 - Chronic obstructive pulmonary disease, unspecified (6) Parkinsons disease Current Visit: Yes Status: Chronic (7) Pulmonary congestion Current Visit: Yes Status: Acute Assessment and plan: Per CXR Chest is clear, no O2 requirements, no SOB Continue to monitor (8) Aspiration pneumonia Current Visit: Yes Status: Suspected Assessment and plan: Continue Zosyn for now CXR not suggestive of pneumonia Qualifiers: Aspiration pneumonia type: unspecified Laterality: unspecified laterality Lung location: unspecified part of lung Qualified Code(s): J69.0 - Pneumonitis due to inhalation of food and vomit (9) Hiatal hernia Current Visit: Yes Status: Chronic Assessment and plan: Chronic. - Subjective Interval history: 71 F, resident of [facility] Seen and evaluated at bedside She has a PMH of Parkinson disease, dementia, chronic dysphagia, hypertension, and COPD. She is admitted and being managed for urinary tract infection, worsening of her dysphagia, as well as aspiration pneumonia. Denies new complaints. . - Constitutional Vitals: Temp Pulse Resp BP Pulse Ox 98.2 F 97 18 106/64 96 12/29/16 06:47 12/29/16 06:47 12/29/16 07:36 12/29/16 06:47 12/29/16 07:36 General appearance: Present: cooperative, A&O X 2, pleasant, no acute distress, answers questions appropriately - Head Head exam: Present: atraumatic, normocephalic - Eye Eye exam: Present: PERRL, conjuntiva pink, sclera anicteric Pupils: Present: PERRL - Neck Neck exam general surgery: Present: supple, trachea midline. Absent: lymphadenopathy - Respiratory Respiratory exam: Present: CTAB. Absent: accessory muscle use, rales, rhonchi, wheezes - Cardiovascular Cardiovascular exam: Present: RRR, +S1, +S2. Absent: diastolic murmur, gallop, rubs, systolic murmur - GI/Abdominal GI/Abdominal exam: Present: normal bowel sounds, soft, no peritoneal signs. Absent: distended, tenderness - Extremities Exam Extremities exam: Present: warm, radial pulses palpable and symmetrical. Absent : calf tenderness, cyanotic, pedal edema - Neurological Exam Neurological exam: Present: alert, CN II-XII intact, no focal deficits. Absent : oriented X3, pronater drift, facial droop, speech deficit - Skin Skin exam: Present: dry, intact Internal Medicine: Result - Labs CBC & Chem 7: 12/29/16 03:18 12/29/16 03:18 Labs: Short CBC 12/29/16 Range/Units 03:18 WBC 10.1 (4.3-11.1) K/mcL Hgb 12.5 (11.5-15.4) g/dL Hct 37.5 (35.3-44.9) % Plt Count 239 (140-400) K/mcL Neutrophils # 6.8 (1.6-8.9) K/mcL BMP 12/29/16 03:18 Sodium 139 Potassium 3.7 Chloride 103 Carbon Dioxide 27 BUN 13 Creatinine 0.88 Glucose 109 H Calcium 9.1 Liver Function 12/29/16 Range/Units 03:18 Total Bilirubin 0.5 (0.2-1.2) mg/dL AST 20 (5-34) Units/L ALT 18 (0-55) Units/L Alkaline Phosphatase 69 (38-126) Units/L Albumin 3.2 L (3.5-5.0) g/dL - Impressions Impressions Head CT 12/28/16 14:50 IMPRESSION: Streak limited study but no CT evidence of an acute infarct. D/ / Delfino Reyes MD / Delfino Reyes MD Interpreting Provider: Delfino Reyes MD Videofluoroscopic Swallow 12/28/16 16:07 IMPRESSION: Multiple episodes of predominantly transient laryngeal penetration mostly from residue in the piriform sinuses. Some deep aspiration to the true vocal cords was noted later during the procedure, and transient tracheal aspiration is not entirely excluded. Please see separate speech pathology report for full discussion of findings and recommendations. D/ / Timothy Newman MD / Timothy Newman MD Interpreting Provider: Timothy Newman MD Consult Discharge Plan - Plan [facility] [facility] [place] Care Provider[place] -
[2016-12-29] MEDS: Piperacillin/Tazobactam 3.375 GM in D5% in Water 50 ML IVPB SCH ×2 (09:33→17:28)
[2016-12-29] MEDS: Rivastigmine Tartrate (oral) 1.5 MG CAPSULE PO SCH ×2 (11:12→21:09)
[2016-12-29] MEDS: Sennosides/Docusate Sodium TABLET PO SCH ×2 (11:12→21:09)
[2016-12-29] MEDS: Aspirin 325 MG TABLET PO SCH (11:12)
[2016-12-29] MEDS: ALPRAZolam 0.5 MG TABLET PO SCH ×3 (11:12→21:09)
[2016-12-29] MEDS: Glycopyrrolate 1 MG TABLET PO SCH ×2 (11:12→21:09)
[2016-12-29] MEDS: Gabapentin 300 MG CAPSULE PO SCH ×2 (11:12→21:09)
[2016-12-29] MEDS: Carbidopa/Levodopa 25/100 TABLET PO SCH ×4 (11:22→23:47)
[2016-12-29] MEDS: Scopolamine Patch 1.5 MG PATCH.TD72 TD SCH (11:52)
[2016-12-29] MEDS: *HR* Metoprolol 5 MG/5 ML VIAL IVP SCH ×3 (11:54→23:23)
[2016-12-29] MEDS ORDERED: Levofloxacin 750 MG/150 ML 750 MG/150 ML BAG IVPB SCH (14:00)
[2016-12-29] MEDS: *HR* Heparin 5,000 UNIT/ML VIAL SQ SCH (17:28)
[2016-12-29] MEDS: rOPINIRole 0.25 MG TABLET PO SCH (21:09)
[2016-12-30] MEDS: Piperacillin/Tazobactam 3.375 GM in D5% in Water 50 ML IVPB SCH ×3 (00:47→17:35)
[2016-12-30] MEDS: Ipratropium/Albuterol Neb 3 ML IH SCH ×5 (03:37→20:07)
[2016-12-30 04:35] LABS: Basophils # 0.1 K/mcL (0.0-0.2); Basophils % 0.7 %; Eosinophils # 0.1 K/mcL (0.0-0.6); Eosinophils % 1.3 %; Hematocrit 39.9 % (35.3-44.9); Immature Granulocytes % 0.4 % (0-4); Lymphocytes % 19.6 %; Mean Corpuscular HGB Conc 32.6 g/dL (31.6-35.5); Mean Corpuscular Hemoglobin 29.4 pg (28.0-33.3); Mean Corpuscular Volume 90.3 fL (83.0-100.0); Mean Platelet Volume 9.4 fL (9.4-12.4); Monocytes # 0.9 K/mcL (0.0-1.3); Monocytes % 8.9 %; Neutrophils # 6.9 K/mcL (1.6-8.9); Platelet Count 248 K/mcL (140-400); Red Blood Count 4.42 M/mcL (3.82-4.97); Red Cell Distribution Width 12.8 % (11.5-14.5); Segmented Neutrophils % 69.1 %
[2016-12-30 04:50] LABS: BUN/Creatinine Ratio 17 (6-26); Blood Urea Nitrogen 15 mg/dL (7-20); Calcium 9.6 mg/dL (8.6-10.8); Carbon Dioxide 25 mEq/L (19-29); Chloride 102 mEq/L (98-109); Glucose 126 mg/dL (70-99); Osmolality,Calculated 290 (280-300); Potassium 3.5 mEq/L (3.5-4.5); Sodium 139 mEq/L (136-145); eGFR For African Americans > 60 (> 60); eGFR For Non-African Americans > 60 (> 60)
[2016-12-30] MEDS: *HR* Heparin 5,000 UNIT/ML VIAL SQ SCH ×2 (05:50→17:36)
[2016-12-30] MEDS: Aspirin 325 MG TABLET PO SCH (08:43)
[2016-12-30] MEDS: Carbidopa/Levodopa 25/100 TABLET PO SCH ×4 (08:43→21:13)
[2016-12-30] MEDS: Sennosides/Docusate Sodium TABLET PO SCH ×2 (08:44→21:14)
[2016-12-30] MEDS: Folic Acid 1 MG TABLET PO SCH (08:44)
[2016-12-30] MEDS: Glycopyrrolate 1 MG TABLET PO SCH ×2 (08:44→21:14)
[2016-12-30] MEDS: Rivastigmine Tartrate (oral) 1.5 MG CAPSULE PO SCH ×2 (08:44→21:13)
[2016-12-30] MEDS: ALPRAZolam 0.5 MG TABLET PO SCH ×3 (08:44→21:14)
[2016-12-30] MEDS: Gabapentin 300 MG CAPSULE PO SCH ×2 (08:44→21:13)
[2016-12-30] MEDS: 0.9 % Sodium Chloride 1,000 ML IVC SCH (08:51)
--- NOTE | 2016-12-30 11:04 | Electrocardiograph Report ---
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
--- NOTE | 2016-12-30 11:20 | Internal Med Progress Note ---
Date of Encounter: 12/30/16 Time of Encounter: 11:20 - Assessment and plan (1) Dysphagia Current Visit: Yes Status: Acute Assessment and plan: Acute on chronic. Possibly secondary to progression of her Parkinson's disease and dementia. Attempts at tube placement i.e. G-tube or NG tube failed. Patient is unable to follow commands to swallow. Videofluoroscopy shows multiple aspirations. Discussed with patient about PEG tube, in agreement Will discuss with family regarding PEG tube placement. Special therapy will continue to follow.crescencio to follow Surgery is consulted Attempted to call Next of kin listed per chart Yesica Yates, on [phone], with no response. Left a voice message for call back. Also called emergency contact Latha Carquline [phone]. Stated by respondent its a home phone, and medical anthropology director isnt home, left a number for call back Qualifiers: Dysphagia type: unspecified Qualified Code(s): R13.10 - Dysphagia, unspecified (2) UTI (urinary tract infection) Current Visit: Yes Status: Ruled-out Assessment and plan: Ruled out. Urine culture with no growth. Qualifiers: Urinary tract infection type: site unspecified Hematuria presence: without hematuria Qualified Code(s): N39.0 - Urinary tract infection, site not specified (3) DVT prophylaxis Current Visit: Yes Status: Acute Assessment and plan: Subcutaneous heparin (4) HTN (hypertension) Current Visit: Yes Status: Chronic Assessment and plan: Controlled at this time. Patient is nothing by mouth due to dysphagia with aspiration. Continue metoprolol IV every 6 hours. Continue to monitor. Qualifiers: Hypertension type: essential hypertension Qualified Code(s): I10 - Essential (primary) hypertension (5) COPD (chronic obstructive pulmonary disease) Current Visit: Yes Status: Chronic Assessment and plan: Not in exacerbation at this time. DuoNeb when necessary. Qualifiers: COPD type: unspecified COPD Qualified Code(s): J44.9 - Chronic obstructive pulmonary disease, unspecified (6) Parkinsons disease Current Visit: Yes Status: Chronic Assessment and plan: Home medications are held due to NPO status (7) Pulmonary congestion Current Visit: Yes Status: Acute Assessment and plan: Per CXR Chest is clear, no O2 requirements, no SOB Continue to monitor (8) Aspiration pneumonia Current Visit: Yes Status: Suspected Assessment and plan: Continue Zosyn for now CXR not suggestive of pneumonia Qualifiers: Aspiration pneumonia type: unspecified Laterality: unspecified laterality Lung location: unspecified part of lung Qualified Code(s): J69.0 - Pneumonitis due to inhalation of food and vomit (9) Hiatal hernia Current Visit: Yes Status: Chronic Assessment and plan: Chronic. - Subjective Interval history: 71 F, resident of [facility] Seen and evaluated at bedside She has a PMH of advanced Parkinson disease, dementia, chronic dysphagia, hypertension, and COPD. She is admitted and being managed for urinary tract infection, worsening of her dysphagia, as well as aspiration pneumonia. Denies new complaints. Discussed option of PEG tube with the patient today and she agrees to it, she would like me to call her daughter Kendra, call placed again, no response, left a message Dr. Pena consulted . - Constitutional Vitals: Temp Pulse Resp BP Pulse Ox 97.4 F L 125 18 161/74 94 12/30/16 10:31 12/30/16 10:31 12/30/16 10:31 12/30/16 10:31 12/30/16 10:31 General appearance: Present: cooperative, A&O X 2, pleasant, no acute distress, answers questions appropriately - Head Head exam: Present: atraumatic, normocephalic - Eye Eye exam: Present: PERRL, conjuntiva pink, sclera anicteric Pupils: Present: PERRL - Neck Neck exam general surgery: Present: supple, trachea midline. Absent: lymphadenopathy - Respiratory Respiratory exam: Present: CTAB. Absent: accessory muscle use, rales, rhonchi, wheezes - Cardiovascular Cardiovascular exam: Present: RRR, +S1, +S2. Absent: diastolic murmur, gallop, rubs, systolic murmur - GI/Abdominal GI/Abdominal exam: Present: normal bowel sounds, soft, no peritoneal signs. Absent: distended, tenderness - Extremities Exam Extremities exam: Present: warm, radial pulses palpable and symmetrical. Absent : calf tenderness, cyanotic, pedal edema - Neurological Exam Neurological exam: Present: alert, CN II-XII intact, oriented X3, no focal deficits. Absent: pronater drift, facial droop, speech deficit - Skin Skin exam: Present: dry, intact Internal Medicine: Result - Labs CBC & Chem 7: 12/30/16 04:00 12/30/16 04:00 Labs: Short CBC 12/30/16 Range/Units 04:00 WBC 10.0 (4.3-11.1) K/mcL Hgb 13.0 (11.5-15.4) g/dL Hct 39.9 (35.3-44.9) % Plt Count 248 (140-400) K/mcL Neutrophils # 6.9 (1.6-8.9) K/mcL BMP 12/30/16 04:00 Sodium 139 Potassium 3.5 Chloride 102 Carbon Dioxide 25 BUN 15 Creatinine 0.88 Glucose 126 H Calcium 9.6 Consult Discharge Plan - Plan Referrals: Mikie,Rohit Chacko MD [Primary Care Provider] - (pt is from [facility])
[2016-12-30] MEDS: *HR* Metoprolol 5 MG/5 ML VIAL IVP SCH ×3 (12:00→22:52)
--- NOTE | 2016-12-30 16:32 | General Surgery Consult Note ---
Date of Encounter: 12/30/16 Time of Encounter: 16:28 Assessment and Plan (1) Hiatal hernia Current Visit: Yes Status: Chronic viewed recent CT scan abd/pelvis which shows patient has most of her stomach in her chest, may be able to place peg in distal stomach if with insufflation it reaches below ribs, not being able to place peg due to hiatal hernia is a risk (2) Parkinsons disease Current Visit: Yes Status: Chronic (3) Dysphagia Current Visit: Yes Status: Acute reviewed video flouro report as well as speech reports patient unable to eat due to aspiration discussed with patient feeding tube and she seemed to understand need for tube, risks and benefits of placing tube, she states she would like to proceed, discussed with daughter Fior as well due to hiatal hernia placement endoscopically may not be feasible but will try trying to get ahold of patients brother who is patients POA even if able to place peg via egd due to large hiatal hernia reflux and aspiration may still be an issue and may need converted to GJ Qualifiers: Dysphagia type: unspecified Qualified Code(s): R13.10 - Dysphagia, unspecified History of Present Illness Consult date: 12/30/16 Reason for consult: other (PEG) History of present illness: Patient is a very pleasant 71 yo female with history parkinson disease, dementia. She has had progressive dysphagia and is admitted with an aspiration pneumonia. She has been evaluated by speech therapy and undergone a video swallow evaluation which demonstrates aspiration. We have been asked to evaluate patient for peg tube placement. Patient states she knows what a feeding tube is and points to her upper left abdomen. When asked if she would want a feeding tube she states "I don't want to ". Discussion with patients daughterFior, the patient apparently stated the other day she did not want a feeding tube. Patients brotherAnanth [phone] is the patients POA. Past Med Surg Social Fam HX - Past Medical History Source: patient Medical history: COPD, dementia, hypertension, other (Parkinson Dz) Psychiatric history: anxiety - Past Surgical History Surgical History: other (previous right chest and left chest stimulator present) - Social History Smoking Status: Former smoker Smokeless Tobacco Status: No Alcohol use: none Drug use: none - Family History Father Family Member Ethnicity: Non- Living Status: Mother History Unknown: Yes Adopted: Yes Family Member Ethnicity: Non- Living Status: Hx Family Cardiac Disorders: No Brother Family Member Ethnicity: Non- Living Status: Hx Family Cancer: Yes (Unknown type) Sister Name: Cici Lowe Age: 75 Family Member Ethnicity: Non- Living Status: Hx Family Cardiac Disorders: Yes (HD) Hx Family Respiratory Disorders: Yes (COPD) Hx Family Cancer: No Hx Family GI Disorders: No Hx Family Genitourinary Disorders: No Hx Family Endocrine Disorder: Yes (Diabetes) Hx Family Musculoskeletal Disorders: Yes (Arthritis) Hx Family Neurologic Disorders: Yes Hx Family HEENT Disorders: No Hx Family Autoimmune Disorders: No Hx Family Reproductive Disorders: No Hx Family Psychosocial Disorders: Yes (Anxiety) Hx Family Medical Disorders: Yes Medications and Allergies Aspirin 325 mg PO DAILY 03/23/15 [History] Folic Acid 0.4 mg PO DAILY 03/23/15 [History] Metoprolol [Lopressor] 25 mg PO BID 03/23/15 [History] Nitroglycerin [Nitrostat] 0.4 mg SL Q5M PRN 03/23/15 [History] Omeprazole [PriLOSEC] 20 mg PO DAILY 03/23/15 [History] Acetaminophen [Tylenol] 1,000 mg PO HS 10/12/16 [History] Acetaminophen [Tylenol] 650 mg PO Q8H PRN 10/12/16 [History] Albuterol Neb [Proventil Neb] 2.5 mg IH Q4H PRN 10/12/16 [History] Albuterol Sulfate [Proair Hfa] 2 puff IH Q4H PRN 10/12/16 [History] Beclomethasone Diprop 40mcg [QVAR 40 mcg] 2 puff IH BID 10/12/16 [History] Carbidopa/Levodopa 25/100 [Sinemet 25/100] 1 each PO 5XD 10/12/16 [History] Cyanocobalamin (Vitamin B-12) [Vitamin B12] 1,000 mcg PO DAILY 10/12/16 [History ] Cyclobenzaprine HCl 5 mg PO TID 10/12/16 [History] Dicyclomine [Bentyl] 10 mg PO BID 10/12/16 [History] Donepezil [Aricept] 5 mg PO HS 10/12/16 [History] Ergocalciferol (VITAMIN D2) [Vitamin D2] 50,000 unit PO SA 10/12/16 [History] Fexofenadine HCl [Allergy Relief] 180 mg PO DAILY 10/12/16 [History] Gabapentin [Neurontin] 300 mg PO QAM 10/12/16 [History] Gabapentin [Neurontin] 600 mg PO HS 10/12/16 [History] Glycopyrrolate [Robinul] 0.5 mg PO BID 10/12/16 [History] Guaifenesin [Mucinex] 600 mg PO Q12H PRN 10/12/16 [History] Lisinopril/Hydrochlorothiazide [Zestoretic 10-12.5 mg Tablet] 1 each PO DAILY [History] Magnesium Hydroxide [Milk of Magnesia] 2,400 mg PO DAILY PRN 10/12/16 [History] Multivit,Th Iron,Other Min [Therems-M] 1 each PO DAILY 10/12/16 [History] Olopatadine HCl [Patanol] 2 drop BOTH EYES BID 10/12/16 [History] Ondansetron HCl [Zofran] 4 mg PO Q6H PRN 10/12/16 [History] Polyethylene Glycol 3350 [MiraLAX] 17 gm PO DAILY PRN 10/12/16 [History] Rivastigmine Tartrate (oral) [Exelon] 3 mg PO BID 10/12/16 [History] Scopolamine Patch [Transderm-Scop] 1.5 mg TD Q72H 10/12/16 [History] Sennosides/Docusate Sodium [Senna-S Tablet] 2 each PO BID 10/12/16 [History] ALPRAZolam [Xanax 0.5 MG Tablet] 0.5 mg PO TID #30 10/14/16 [Rx] HYDROcodone/Acet 5/325 mg [[place] 5-325 mg] 1 tab PO Q6H PRN #20 10/14/16 [Rx] Ropinirole HCl [Requip] 0.25 mg PO HS 12/28/16 [History] Sertraline [Zoloft] 50 mg PO DAILY 12/28/16 [History] 3 Allergy/AdvReac Type Severity Reaction Status Date / Time meperidine [From Demerol] Allergy Rash Verified 12/28/16 11:14 Review of Systems All systems PM: reviewed and no additional remarkable complaints except as stated All systems PM: A 10-system review of systems was performed and is negative for pertinent findings except as documented above in the HPI. General Surgery Exam Initial Vital Signs Temp Pulse Resp BP Pulse Ox 96.6 F L 98 18 198/114 98 12/28/16 11:14 12/28/16 11:14 12/28/16 11:14 12/28/16 11:14 12/28/16 11:14 - General physical appearance well developed, well nourished, no distress - Eyes PERRL, normal ocular movement - ENT normal mucosa, normocephalic - Neck trachea midline - Respiratory normal expansion, clear to auscultation - Cardiovascular Cardiovascular exam: Present: tachycardia, no murmurs/rubs/gallops - Abdomen Abdomen general surgery: Present: bowel sounds present, soft, non tender. Absent: distended - Integumentary Integumentary general surgery: Present: warm and dry - Neurologic Present: CN 2-12 grossly intact - Musculoskeletal Present: normal gait, normal posture - Psychiatric Psychiatric general surgery: Present: A&Ox3, speech is normal Exam Initial Vital Signs Temp Pulse Resp BP Pulse Ox 96.6 F L 98 18 198/114 98 12/28/16 11:14 12/28/16 11:14 12/28/16 11:14 12/28/16 11:14 12/28/16 11:14 Results - Labs 12/30/16 04:00 12/30/16 04:00 Abnormal lab results Glucose 126 mg/dL (70-99) H 12/30/16 04:00 POC Glucose 142 (58-89) H 12/30/16 06:39 Albumin 3.2 g/dL (3.5-5.0) L 12/29/16 03:18 Albumin/Globulin Ratio 1.0 (1.1-2.2) L 12/29/16 03:18 Urine Glucose (UA) 100 mg/dL (Normal) H 12/28/16 11:56 Urine Ketones Trace mg/dL (Negative) H 12/28/16 11:56 Ur Leukocyte Esterase Moderate (Negative) H 12/28/16 11:56 Urine Microscopic WBC 50-100 per hpf (0-3) H 12/28/16 11:56 Ur Squamous Epith Cells Many per lpf (None-Few) H 12/28/16 11:56 Ur Culture Indicated? YES (NO) A 12/28/16 11:56 Diabetes panel 12/30/16 Range/Units 04:00 Sodium 139 (136-145) mEq/L Potassium 3.5 (3.5-4.5) mEq/L Chloride 102 (98-109) mEq/L Carbon Dioxide 25 (19-29) mEq/L BUN 15 (7-20) mg/dL Creatinine 0.88 (0.57-1.11) mg/dL Glucose 126 H (70-99) mg/dL Calcium 9.6 (8.6-10.8) mg/dL Calcium panel 12/30/16 Range/Units 04:00 Calcium 9.6 (8.6-10.8) mg/dL Pituitary panel 12/30/16 Range/Units 04:00 Sodium 139 (136-145) mEq/L Potassium 3.5 (3.5-4.5) mEq/L Chloride 102 (98-109) mEq/L Carbon Dioxide 25 (19-29) mEq/L BUN 15 (7-20) mg/dL Creatinine 0.88 (0.57-1.11) mg/dL Glucose 126 H (70-99) mg/dL Calcium 9.6 (8.6-10.8) mg/dL Adrenal panel 12/30/16 Range/Units 04:00 Sodium 139 (136-145) mEq/L Potassium 3.5 (3.5-4.5) mEq/L Chloride 102 (98-109) mEq/L Carbon Dioxide 25 (19-29) mEq/L BUN 15 (7-20) mg/dL Creatinine 0.88 (0.57-1.11) mg/dL Glucose 126 H (70-99) mg/dL Calcium 9.6 (8.6-10.8) mg/dL All other labs normal. - Imaging CT scan - abdomen: report reviewed, image reviewed CT scan - pelvis: report reviewed, image reviewed (patient with very large hiatal hernia and most of stomach present within her chest) Consult Discharge Plan - Plan Referrals: Mikie,Rohit Chacko MD [Primary Care Provider] - (pt is from [facility])
[2016-12-30] MEDS: rOPINIRole 0.25 MG TABLET PO SCH (21:14)
[2016-12-30] MEDS: *HR* LORazepam 2 MG/ML VIAL IVP PRN (22:21)
[2016-12-31] MEDS: Ipratropium/Albuterol Neb 3 ML IH SCH ×4 (00:05→11:00)
[2016-12-31] MEDS: Carbidopa/Levodopa 25/100 TABLET PO SCH ×5 (00:15→19:04)
[2016-12-31] MEDS: Piperacillin/Tazobactam 3.375 GM in D5% in Water 50 ML IVPB SCH ×3 (00:51→17:07)
[2016-12-31 03:44] LABS: Basophils # 0.1 K/mcL (0.0-0.2); Basophils % 0.5 %; Eosinophils # 0.2 K/mcL (0.0-0.6); Hematocrit 38.3 % (35.3-44.9); Immature Granulocytes % 0.3 % (0-4); Lymphocytes % 19.4 %; Mean Corpuscular HGB Conc 33.9 g/dL (31.6-35.5); Mean Corpuscular Volume 88.5 fL (83.0-100.0); Mean Platelet Volume 9.7 fL (9.4-12.4); Monocytes # 1.1 K/mcL (0.0-1.3); Monocytes % 10.8 %; Neutrophils # 6.7 K/mcL (1.6-8.9); Platelet Count 268 K/mcL (140-400); Red Blood Count 4.33 M/mcL (3.82-4.97); Red Cell Distribution Width 12.8 % (11.5-14.5)
[2016-12-31 03:53] LABS: BUN/Creatinine Ratio 21 (6-26); Blood Urea Nitrogen 17 mg/dL (7-20); Calcium 9.4 mg/dL (8.6-10.8); Carbon Dioxide 22 mEq/L (19-29); Chloride 107 mEq/L (98-109); Glucose 126 mg/dL (70-99); Osmolality,Calculated 295 (280-300); Potassium 3.2 mEq/L (3.5-4.5); Sodium 141 mEq/L (136-145); eGFR For African Americans > 60 (> 60); eGFR For Non-African Americans > 60 (> 60)
[2016-12-31] MEDS: *HR* Heparin 5,000 UNIT/ML VIAL SQ SCH ×2 (05:21→17:09)
[2016-12-31] MEDS: 0.9 % Sodium Chloride 1,000 ML IVC SCH (05:21)
[2016-12-31] MEDS: *HR* Metoprolol 5 MG/5 ML VIAL IVP SCH ×3 (05:21→17:08)
[2016-12-31] MEDS ORDERED: *HR* LORazepam 2 MG/ML VIAL IVP PRN (08:27)
[2016-12-31] MEDS: Gabapentin 300 MG CAPSULE PO SCH ×2 (08:49→19:05)
[2016-12-31] MEDS: Sennosides/Docusate Sodium TABLET PO SCH ×2 (08:49→19:05)
[2016-12-31] MEDS: ALPRAZolam 0.5 MG TABLET PO SCH ×3 (08:49→19:05)
[2016-12-31] MEDS: Rivastigmine Tartrate (oral) 1.5 MG CAPSULE PO SCH ×2 (08:49→19:05)
[2016-12-31] MEDS: Folic Acid 1 MG TABLET PO SCH (08:49)
[2016-12-31] MEDS: Glycopyrrolate 1 MG TABLET PO SCH ×2 (08:49→19:05)
[2016-12-31] MEDS: Aspirin 325 MG TABLET PO SCH (08:49)
--- NOTE | 2016-12-31 09:34 | Internal Med Progress Note ---
Date of Encounter: 12/31/16 Time of Encounter: 09:00 - Assessment and plan (1) Delirium Current Visit: Yes Status: Acute Assessment and plan: Multifactorial: Missed medications due to NPO status Increase Ativan to home dose IV Add Geogon IM prn (2) Dysphagia Current Visit: Yes Status: Acute Assessment and plan: Acute on chronic. Possibly secondary to progression of her Parkinson's disease and dementia. Attempts at tube placement i.e. G-tube or NG tube failed. Patient is unable to follow commands to swallow. Videofluoroscopy shows multiple aspirations. Discussed with patient about PEG tube, 12/30 in agreement Surgery is on board Patient has delirium today and refused to go for procedure, at this time, she does not have decisional capacity as she is currently deliriuous, she had agreed to the procedure 12/30 when she was AAOX4 POA contacted, states to go for PEG Family aware. Surgery is on board Qualifiers: Dysphagia type: unspecified Qualified Code(s): R13.10 - Dysphagia, unspecified (3) UTI (urinary tract infection) Current Visit: Yes Status: Ruled-out Assessment and plan: Ruled out. Urine culture with no growth. Qualifiers: Urinary tract infection type: site unspecified Hematuria presence: without hematuria Qualified Code(s): N39.0 - Urinary tract infection, site not specified (4) DVT prophylaxis Current Visit: Yes Status: Acute Assessment and plan: Subcutaneous heparin (5) HTN (hypertension) Current Visit: Yes Status: Chronic Assessment and plan: Controlled at this time. Patient is nothing by mouth due to dysphagia with aspiration. Continue metoprolol IV every 6 hours. Increase to 7.5mg Continue to monitor. Qualifiers: Hypertension type: essential hypertension Qualified Code(s): I10 - Essential (primary) hypertension (6) COPD (chronic obstructive pulmonary disease) Current Visit: Yes Status: Chronic Assessment and plan: Not in exacerbation at this time. DuoNeb when necessary. Qualifiers: COPD type: unspecified COPD Qualified Code(s): J44.9 - Chronic obstructive pulmonary disease, unspecified (7) Parkinsons disease Current Visit: Yes Status: Chronic Assessment and plan: Home medications are held due to NPO status Plan to resume after tube placement (8) Pulmonary congestion Current Visit: Yes Status: Acute Assessment and plan: Per CXR Chest is clear, no O2 requirements, no SOB Continue to monitor (9) Aspiration pneumonia Current Visit: Yes Status: Suspected Assessment and plan: Continue Zosyn for now CXR not suggestive of pneumonia Qualifiers: Aspiration pneumonia type: unspecified Laterality: unspecified laterality Lung location: unspecified part of lung Qualified Code(s): J69.0 - Pneumonitis due to inhalation of food and vomit (10) Hiatal hernia Current Visit: Yes Status: Chronic Assessment and plan: Chronic. - Subjective Interval history: 71 F, resident of SNF Seen and evaluated at bedside She has a PMH of advanced Parkinson disease, dementia, chronic dysphagia, hypertension, and COPD. She is admitted and being managed for urinary tract infection, worsening of her dysphagia, as well as aspiration pneumonia. Denies new complaints. Discussed option of PEG tube with the patient 11.4 and she agreed to it, surgery eval appreciated This morning, she is more confused and agitated initiall She is alert but oriented to self only. She doesn't seem in any form of distress - Constitutional Vitals: Temp Pulse Resp BP Pulse Ox 98.5 F 103 18 149/80 98 12/31/16 06:31 12/31/16 06:31 12/31/16 08:17 12/31/16 06:31 12/31/16 08:17 General appearance: Present: cooperative, A&O X 1, pleasant, no acute distress, answers questions appropriately - Head Head exam: Present: atraumatic, normocephalic - Eye Eye exam: Present: PERRL, conjuntiva pink, sclera anicteric Pupils: Present: PERRL - Neck Neck exam general surgery: Present: supple, trachea midline. Absent: lymphadenopathy - Respiratory Respiratory exam: Present: CTAB. Absent: accessory muscle use, rales, rhonchi, wheezes - Cardiovascular Cardiovascular exam: Present: RRR, +S1, +S2. Absent: diastolic murmur, gallop, rubs, systolic murmur - GI/Abdominal GI/Abdominal exam: Present: normal bowel sounds, soft, no peritoneal signs. Absent: distended, tenderness - Additional comments: Vázquez with clear urine - Extremities Exam Extremities exam: Present: warm, radial pulses palpable and symmetrical. Absent : calf tenderness, cyanotic, pedal edema - Neurological Exam Neurological exam: Present: alert, CN II-XII intact, no focal deficits. Absent : oriented X3, pronater drift, facial droop, speech deficit - Skin Skin exam: Present: dry, intact Internal Medicine: Result - Labs CBC & Chem 7: 12/31/16 03:00 12/31/16 03:00 Labs: Short CBC 12/31/16 Range/Units 03:00 WBC 10.1 (4.3-11.1) K/mcL Hgb 13.0 (11.5-15.4) g/dL Hct 38.3 (35.3-44.9) % Plt Count 268 (140-400) K/mcL Neutrophils # 6.7 (1.6-8.9) K/mcL BMP 12/31/16 03:00 Sodium 141 Potassium 3.2 L Chloride 107 Carbon Dioxide 22 BUN 17 Creatinine 0.82 Glucose 126 H Calcium 9.4 Consult Discharge Plan - Plan Referrals: Mikie,Rohit Chacko MD [Primary Care Provider] - ([facility] is from [facility])
[2016-12-31] MEDS ORDERED: Ziprasidone injection 20 MG/ML VIAL IM ONE (12:52)
[2016-12-31] MEDS ORDERED: Water for inj. (sterile) 10 ML IV ONE (13:42)
--- NOTE | 2016-12-31 14:29 | General Surgery Progress Note ---
<Ulysses Crystal - Last Filed: 12/31/16 14:38> Date of Encounter: 12/31/16 Time of Encounter: 08:10 - Assessment and Plan (1) Dysphagia Current Visit: Yes Status: Acute Possibly due to Parkinson's and dementia. Attempts at tube placement have failed. Patient unable to swallow. Currently DNR-CCA PEG tube placement discussed with patient. She does not wasnt peg tube, but appears very disoriented. POA says she would want it. Family aware of current situation. Qualifiers: Dysphagia type: unspecified Qualified Code(s): R13.10 - Dysphagia, unspecified (2) DVT prophylaxis Current Visit: Yes Status: Acute (3) HTN (hypertension) Current Visit: Yes Status: Chronic Currently NPO due to aspiration risk. -Metoprolol IV every 6 hours; increase to 7.5. -Continue to monitor. Qualifiers: Hypertension type: essential hypertension Qualified Code(s): I10 - Essential (primary) hypertension (4) COPD (chronic obstructive pulmonary disease) Current Visit: Yes Status: Chronic Duonebs as needed. Qualifiers: COPD type: unspecified COPD Qualified Code(s): J44.9 - Chronic obstructive pulmonary disease, unspecified (5) Hiatal hernia Current Visit: Yes Status: Chronic Chronic (6) Aspiration pneumonia Current Visit: Yes Status: Suspected Patient on Zosyn. Qualifiers: Aspiration pneumonia type: unspecified Laterality: unspecified laterality Lung location: unspecified part of lung Qualified Code(s): J69.0 - Pneumonitis due to inhalation of food and vomit (7) Parkinsons disease Current Visit: Yes Status: Chronic (8) Pulmonary congestion Current Visit: Yes Status: Acute (9) Delirium Current Visit: Yes Status: Acute Ativan and Geogon IM PRN Subjective Patient reports: no new complaints Narrative: Patient as seen and examined at bedside this morning. Patient appears to be very confused; oriented to person only. She does not have any new complaints, and denies having any pain at the present time. Objective - General physical appearance well developed, well nourished - Neck Neck exam: no masses, trachea midline, no lymphadectomy, no venous distension - Respiratory normal expansion, normal respiratory effort, clear to auscultation - Cardiovascular Cardiovascular exam: Present: RRR, no murmurs/rubs/gallops - Abdomen Abdomen: Present: bowel sounds present, soft, non tender - Neurologic confused - Psychiatric oriented to person - Labs 12/31/16 03:00 12/31/16 03:00 Consult Discharge Plan - Plan Referrals: Rohit Deluna MD [Primary Care Provider] - (pt is from [facility]) <FlexOksana David - Last Filed: 12/31/16 15:04> Date of Encounter: 12/31/16 - Assessment and Plan (1) Hiatal hernia Current Visit: Yes Status: Chronic large hiatal hernia present discussed with POA, brother, if peg placed there is a risk she would reflux and aspirate and may need a GJ (2) Parkinsons disease Current Visit: Yes Status: Chronic (3) Dysphagia Current Visit: Yes Status: Acute patient with parkinsons and dementia yesterday she stated she wants afeeding tube, today she refuses am told by nursing her poa wants patient to have feeding tube am not sure patient has been deemed incompetent to make medical decisions despite having dementia will discuss with medical/legal tomorrow if brothers POA is enough/appropriate to take patient for peg against her will if demented and what she wants changes from day to day Qualifiers: Dysphagia type: unspecified Qualified Code(s): R13.10 - Dysphagia, unspecified Subjective Narrative: patient today states she does not want a feeding tube today not really answering my questions, rather she is sitting on edge of bed and stares at me when I try to talk with her Objective - General physical appearance well developed, well nourished - Eyes normal ocular movement - ENT normal mucosa, normocephalic - Neck Neck exam: trachea midline - Respiratory normal expansion, clear to auscultation - Cardiovascular Cardiovascular exam: Present: tachycardia - Abdomen Abdomen: Present: bowel sounds present, soft, non tender - Integumentary no rash, no growths - Neurologic CN 2-12 grossly intact, confused - Psychiatric oriented to person - Labs 12/31/16 03:00 12/31/16 03:00 - Attending Attestation I examined this patient and my medical decision-making was reviewed with the Resident Physician. I agree with the documented findings, disposition and treatment plan as described except to the extent set forth below.
[2016-12-31] MEDS: Ipratropium Neb 0.5 MG NEBULIZER IH SCH ×3 (15:51→23:41)
[2016-12-31] MEDS: Levalbuterol Neb 1.25 MG/3 ML IH SCH ×3 (15:51→23:41)
[2016-12-31] MEDS: rOPINIRole 0.25 MG TABLET PO SCH (19:05)
[2017-01-01] MEDS: *HR* Metoprolol 5 MG/5 ML VIAL IVP SCH ×4 (00:10→18:31)
[2017-01-01] MEDS: Carbidopa/Levodopa 25/100 TABLET PO SCH ×4 (00:39→16:19)
[2017-01-01] MEDS: Piperacillin/Tazobactam 3.375 GM in D5% in Water 50 ML IVPB SCH ×3 (01:10→18:30)
[2017-01-01] MEDS: Levalbuterol Neb 1.25 MG/3 ML IH SCH ×5 (03:30→19:39)
[2017-01-01] MEDS: Ipratropium Neb 0.5 MG NEBULIZER IH SCH ×5 (03:30→19:39)
[2017-01-01] MEDS: 0.9 % Sodium Chloride 1,000 ML IVC SCH (04:19)
[2017-01-01 05:18] LABS: Basophils # 0.1 K/mcL (0.0-0.2); Basophils % 0.7 %; Eosinophils # 0.4 K/mcL (0.0-0.6); Hematocrit 37.4 % (35.3-44.9); Hemoglobin 12.3 g/dL (11.5-15.4); Immature Granulocytes % 0.3 % (0-4); Lymphocytes # 1.7 K/mcL (0.6-4.6); Lymphocytes % 19.7 %; Mean Corpuscular HGB Conc 32.9 g/dL (31.6-35.5); Mean Corpuscular Hemoglobin 29.7 pg (28.0-33.3); Mean Corpuscular Volume 90.3 fL (83.0-100.0); Mean Platelet Volume 9.1 fL (9.4-12.4); Monocytes # 0.8 K/mcL (0.0-1.3); Monocytes % 9.2 %; Neutrophils # 5.8 K/mcL (1.6-8.9); Platelet Count 226 K/mcL (140-400); Red Blood Count 4.14 M/mcL (3.82-4.97); Segmented Neutrophils % 66.1 %
[2017-01-01 05:28] LABS: BUN/Creatinine Ratio 26 (6-26); Blood Urea Nitrogen 18 mg/dL (7-20); Calcium 8.8 mg/dL (8.6-10.8); Carbon Dioxide 19 mEq/L (19-29); Chloride 110 mEq/L (98-109); Glucose 117 mg/dL (70-99); Osmolality,Calculated 293 (280-300); Potassium 3.7 mEq/L (3.5-4.5); Sodium 140 mEq/L (136-145); eGFR For African Americans > 60 (> 60); eGFR For Non-African Americans > 60 (> 60)
[2017-01-01] MEDS: *HR* Heparin 5,000 UNIT/ML VIAL SQ SCH ×2 (05:34→18:31)
[2017-01-01] MEDS: Sennosides/Docusate Sodium TABLET PO SCH (07:02)
[2017-01-01] MEDS: Folic Acid 1 MG TABLET PO SCH (07:02)
[2017-01-01] MEDS: Rivastigmine Tartrate (oral) 1.5 MG CAPSULE PO SCH (07:02)
[2017-01-01] MEDS: Glycopyrrolate 1 MG TABLET PO SCH (07:02)
[2017-01-01] MEDS: Gabapentin 300 MG CAPSULE PO SCH (07:02)
[2017-01-01] MEDS: Aspirin 325 MG TABLET PO SCH (07:02)
[2017-01-01] MEDS: ALPRAZolam 0.5 MG TABLET PO SCH ×2 (07:03→12:03)
[2017-01-01] MEDS: Scopolamine Patch 1.5 MG PATCH.TD72 TD SCH (09:00)
--- NOTE | 2017-01-01 10:30 | Internal Med Progress Note ---
Date of Encounter: 01/01/17 Time of Encounter: 09:05 - Assessment and plan (1) Delirium Current Visit: Yes Status: Acute Assessment and plan: Multifactorial: Missed medications due to NPO status Increase Ativan to home dose IV Add Geogon IM prn, haldol prn (2) Dysphagia Current Visit: Yes Status: Acute Assessment and plan: Acute on chronic. Possibly secondary to progression of her Parkinson's disease and dementia. Attempts at tube placement i.e. G-tube or NG tube failed. Patient is unable to follow commands to swallow. Videofluoroscopy shows multiple aspirations. Discussed with patient about PEG tube, 12/30 in agreement Surgery is on board Patient has delirium today and refused to go for procedure, at this time, she does not have decisional capacity as she is currently deliriuous, she had agreed to the procedure 12/30 when she was AAOX4 POA contacted, states to go for PEG [facility] eval noted, defers to POA Family aware. Surgery is on board Qualifiers: Dysphagia type: unspecified Qualified Code(s): R13.10 - Dysphagia, unspecified (3) UTI (urinary tract infection) Current Visit: Yes Status: Ruled-out Assessment and plan: Ruled out. Urine culture with no growth. Qualifiers: Urinary tract infection type: site unspecified Hematuria presence: without hematuria Qualified Code(s): N39.0 - Urinary tract infection, site not specified (4) DVT prophylaxis Current Visit: Yes Status: Acute Assessment and plan: Subcutaneous heparin (5) HTN (hypertension) Current Visit: Yes Status: Chronic Assessment and plan: Controlled at this time. Patient is nothing by mouth due to dysphagia with aspiration. Continue metoprolol IV every 6 hours. Increased to 7.5mg which is controlling both HR and BP Continue to monitor. Qualifiers: Hypertension type: essential hypertension Qualified Code(s): I10 - Essential (primary) hypertension (6) COPD (chronic obstructive pulmonary disease) Current Visit: Yes Status: Chronic Assessment and plan: Not in exacerbation at this time. DuoNeb when necessary. Qualifiers: COPD type: unspecified COPD Qualified Code(s): J44.9 - Chronic obstructive pulmonary disease, unspecified (7) Parkinsons disease Current Visit: Yes Status: Chronic Assessment and plan: Home medications are held due to NPO status Plan to resume after tube placement (8) Pulmonary congestion Current Visit: Yes Status: Acute Assessment and plan: Per CXR Chest is clear, no O2 requirements, no SOB Deescalate antibiotics, Continue to monitor (9) Aspiration pneumonia Current Visit: Yes Status: Suspected Assessment and plan: Continue Zosyn for now CXR not suggestive of pneumonia Qualifiers: Aspiration pneumonia type: unspecified Laterality: unspecified laterality Lung location: unspecified part of lung Qualified Code(s): J69.0 - Pneumonitis due to inhalation of food and vomit (10) Hiatal hernia Current Visit: Yes Status: Chronic Assessment and plan: Chronic. - Subjective Interval history: 71 F, resident of SNF Seen and evaluated at bedside She has a PMH of advanced Parkinson disease, dementia, chronic dysphagia, hypertension, and COPD. She is admitted and being managed for urinary tract infection, worsening of her dysphagia, as well as aspiration pneumonia. Denies new complaints. Discussed option of PEG tube with the patient . and she agreed to it, surgery eval appreciated on 12/31, developed delirium and deemed to not have capacity to refuse/accept PEG placement. patient's son and POA agreed to procedure as this was the agreement before the patient developed delirium She is seen this morning, agitated and still deliriuos Psych eval appreciated, patient is for PEG tube placement by surgery - Constitutional Vitals: Temp Pulse Resp BP Pulse Ox 98.6 F 84 18 160/80 94 01/01/17 06:55 01/01/17 06:55 01/01/17 07:59 01/01/17 06:55 01/01/17 07:59 General appearance: Present: cooperative, A&O X 1, pleasant, no acute distress, answers questions appropriately - Head Head exam: Present: atraumatic, normocephalic - Eye Eye exam: Present: PERRL, conjuntiva pink, sclera anicteric Pupils: Present: PERRL - Neck Neck exam general surgery: Present: supple, trachea midline. Absent: lymphadenopathy - Respiratory Respiratory exam: Present: CTAB. Absent: accessory muscle use, rales, rhonchi, wheezes - Cardiovascular Cardiovascular exam: Present: RRR, +S1, +S2. Absent: diastolic murmur, gallop, rubs, systolic murmur - GI/Abdominal GI/Abdominal exam: Present: normal bowel sounds, soft, no peritoneal signs. Absent: distended, tenderness - Extremities Exam Extremities exam: Present: warm, radial pulses palpable and symmetrical. Absent : calf tenderness, cyanotic, pedal edema - Neurological Exam Neurological exam: Present: alert, CN II-XII intact, oriented X3, no focal deficits. Absent: pronater drift, facial droop, speech deficit - Skin Skin exam: Present: dry, intact Internal Medicine: Result - Labs CBC & Chem 7: 01/01/17 05:10 01/01/17 05:10 Labs: Short CBC 01/01/17 Range/Units 05:10 WBC 8.7 (4.3-11.1) K/mcL Hgb 12.3 (11.5-15.4) g/dL Hct 37.4 (35.3-44.9) % Plt Count 226 (140-400) K/mcL Neutrophils # 5.8 (1.6-8.9) K/mcL BMP 01/01/17 05:10 Sodium 140 Potassium 3.7 Chloride 110 H Carbon Dioxide 19 BUN 18 Creatinine 0.70 Glucose 117 H Calcium 8.8 Consult Discharge Plan - Plan Referrals: Mikie,Rohit Chacko MD [Primary Care Provider] - (pt is from [facility])
--- NOTE | 2017-01-01 12:49 | Consult Note ---
Date of Encounter: 01/01/17 Time of Encounter: 12:38 Assessment & Recommendation (1) Delirium Current visit: Yes Status: Acute Assessment & Recommendation: Client unable to discuss risks/benefits of procedure being recommended. 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 Visually hallucinating. Paranoid. Does not seem to have capacity at this time to consent for/refuse PEG tube. Would defer to POA and best clinical judgment given her situation. History of Present Illness Requesting Physician: Marcelo Morillo MD Reason for consult: Capacity Assessment History of present illness: Ms. Real is a 71 year old female with Parkinsons Disease and associated dementia. Failed swallow tests and at risk for aspiration. Has POA for medical procedures. POA willing to consent to a PEG tube. Client initially indicated she wanted the PEG tube but has changed her mind back and forth several times. This sign writer letterer or painter was asked to determine if she has the capacity to consent or refuse the procedure at this time. Upon entering the room client stared at this sign writer letterer or painter and said "maikol wright." Reluctant to talk. Seemed to know a "stomach tube" was being recommended but that was the extent of her understanding. Unable to explain the risks/benefits of the procedure. Claims the reason she is refusing it is because she is scared she might . Did not understand she could without it. Told this sign writer letterer or painter there is nothing wrong with her swallowing. Seemed to be visually hallucinating. Stated her kids were playing kickball in the hallway. Pointed to one of the nurses standing in the nursing station and said she was her daughter. Made other statements that did not fit the context of what we were talking about such as "my friend just today" and "my family has been here for six hours but I haven't seen them. " Also indicated she was being poisoned by the medications in the hospital. Likely paranoia related to dementia and meds used in management of Parkinsons. CC: Marcelo Morillo MD Past Med Surg Social Fam HX - Past Medical History Medical history: COPD, dementia, hypertension, other (Parkinson Dz) - Past Psychiatric History Psychiatric history: Reports: other - Past Surgical History Surgical History: other (previous right chest and left chest stimulator present) - Social History Smoking Status: Former smoker Smokeless Tobacco Status: No Alcohol use: none Drug use: none - Family History Father Family Member Ethnicity: Non- Living Status: Mother History Unknown: Yes Adopted: Yes Family Member Ethnicity: Non- Living Status: Hx Family Cardiac Disorders: No Brother Family Member Ethnicity: Non- Living Status: Hx Family Cancer: Yes (Unknown type) Sister Name: Cici Lowe Age: 75 Family Member Ethnicity: Non- Living Status: Hx Family Cardiac Disorders: Yes (HD) Hx Family Respiratory Disorders: Yes (COPD) Hx Family Cancer: No Hx Family GI Disorders: No Hx Family Genitourinary Disorders: No Hx Family Endocrine Disorder: Yes (Diabetes) Hx Family Musculoskeletal Disorders: Yes (Arthritis) Hx Family Neurologic Disorders: Yes Hx Family HEENT Disorders: No Hx Family Autoimmune Disorders: No Hx Family Reproductive Disorders: No Hx Family Psychosocial Disorders: Yes (Anxiety) Hx Family Medical Disorders: Yes Medications & Allergies Aspirin 325 mg PO DAILY 03/23/15 [History] Folic Acid 0.4 mg PO DAILY 03/23/15 [History] Metoprolol [Lopressor] 25 mg PO BID 03/23/15 [History] Nitroglycerin [Nitrostat] 0.4 mg SL Q5M PRN 03/23/15 [History] Omeprazole [PriLOSEC] 20 mg PO DAILY 03/23/15 [History] Acetaminophen [Tylenol] 1,000 mg PO HS 10/12/16 [History] Acetaminophen [Tylenol] 650 mg PO Q8H PRN 10/12/16 [History] Albuterol Neb [Proventil Neb] 2.5 mg IH Q4H PRN 10/12/16 [History] Albuterol Sulfate [Proair Hfa] 2 puff IH Q4H PRN 10/12/16 [History] Beclomethasone Diprop 40mcg [QVAR 40 mcg] 2 puff IH BID 10/12/16 [History] Carbidopa/Levodopa 25/100 [Sinemet 25/100] 1 each PO 5XD 10/12/16 [History] Cyanocobalamin (Vitamin B-12) [Vitamin B12] 1,000 mcg PO DAILY 10/12/16 [History ] Cyclobenzaprine HCl 5 mg PO TID 10/12/16 [History] Dicyclomine [Bentyl] 10 mg PO BID 10/12/16 [History] Donepezil [Aricept] 5 mg PO HS 10/12/16 [History] Ergocalciferol (VITAMIN D2) [Vitamin D2] 50,000 unit PO SA 10/12/16 [History] Fexofenadine HCl [Allergy Relief] 180 mg PO DAILY 10/12/16 [History] Gabapentin [Neurontin] 300 mg PO QAM 10/12/16 [History] Gabapentin [Neurontin] 600 mg PO HS 10/12/16 [History] Glycopyrrolate [Robinul] 0.5 mg PO BID 10/12/16 [History] Guaifenesin [Mucinex] 600 mg PO Q12H PRN 10/12/16 [History] Lisinopril/Hydrochlorothiazide [Zestoretic 10-12.5 mg Tablet] 1 each PO DAILY [History] Magnesium Hydroxide [Milk of Magnesia] 2,400 mg PO DAILY PRN 10/12/16 [History] Multivit,Th Iron,Other Min [Therems-M] 1 each PO DAILY 10/12/16 [History] Olopatadine HCl [Patanol] 2 drop BOTH EYES BID 10/12/16 [History] Ondansetron HCl [Zofran] 4 mg PO Q6H PRN 10/12/16 [History] Polyethylene Glycol 3350 [MiraLAX] 17 gm PO DAILY PRN 10/12/16 [History] Rivastigmine Tartrate (oral) [Exelon] 3 mg PO BID 10/12/16 [History] Scopolamine Patch [Transderm-Scop] 1.5 mg TD Q72H 10/12/16 [History] Sennosides/Docusate Sodium [Senna-S Tablet] 2 each PO BID 10/12/16 [History] ALPRAZolam [Xanax 0.5 MG Tablet] 0.5 mg PO TID #30 10/14/16 [Rx] HYDROcodone/Acet 5/325 mg [[place] 5-325 mg] 1 tab PO Q6H PRN #20 10/14/16 [Rx] Ropinirole HCl [Requip] 0.25 mg PO HS 12/28/16 [History] Sertraline [Zoloft] 50 mg PO DAILY 12/28/16 [History] 3 Allergy/AdvReac Type Severity Reaction Status Date / Time meperidine [From Demerol] Allergy Rash Verified 12/28/16 11:14 Review of Systems Constitutional: Denies: fever, chills, weakness, weight change Eyes: Denies: eye pain, vision change Ears, Nose, Throat: Reports: dysphagia Cardiovascular: Denies: chest pain, palpitations, dyspnea on exertion Respiratory: Denies: cough, dyspnea, wheezes Gastrointestinal: Denies: abdominal pain, nausea, vomiting, diarrhea, constipation Genitourinary male: Denies: urgency, dysuria, frequency, genital lesions Genitourinary female: Denies: urgency, dysuria, frequency, abnormal menses, dyspareunia Musculoskeletal: Denies: joint swelling, joint pain Integumentary: Denies: rash, lesions, pruritus Neurological: Reports: other Endocrine: Denies: fatigue, heat or cold intolerance Hematologic/Lymphatic: Denies: easy bruising, lymphadenopathy Allergic/Immunologic: Denies: urticaria, itchy eyes Mental Status Exam Patient orientation: Yes Person Level of alertness: Alert Patient appearance: Appropriate Behavior: anxious Psychomotor activity: Normal Eye contact: Maintains Eye Contact Mood description: Labile Affect description: flat Speech pattern: Normal rate Speech volume: Normal Thought process: Perseveration Thought content: Yes Paranoid delusion Perceptual disturbances: Yes Visual hallucinations Attention span: Capable of Focused Attention Memory description: Immediate Impaired, Recent Impaired, Remote Impaired Patient reliability: Not Reliable Historian Intelligence estimate: Average Judgment: Poor Insight: Minimal Results - Vital Signs Vital signs: Temp Pulse Resp BP Pulse Ox 98.5 F 99 16 166/84 92 01/01/17 11:15 01/01/17 11:15 01/01/17 11:15 01/01/17 11:15 01/01/17 11:15 - Labs Labs: Laboratory Last Values WBC 8.7 K/mcL (4.3-11.1) 01/01/17 05:10 RBC 4.14 M/mcL (3.82-4.97) 01/01/17 05:10 Hgb 12.3 g/dL (11.5-15.4) 01/01/17 05:10 Hct 37.4 % (35.3-44.9) 01/01/17 05:10 MCV 90.3 fL (83.0-100.0) 01/01/17 05:10 MCH 29.7 pg (28.0-33.3) 01/01/17 05:10 MCHC 32.9 g/dL (31.6-35.5) 01/01/17 05:10 RDW 13.0 % (11.5-14.5) 01/01/17 05:10 Plt Count 226 K/mcL (140-400) 01/01/17 05:10 MPV 9.1 fL (9.4-12.4) L 01/01/17 05:10 Immature Gran % 0.3 % (0-4) 01/01/17 05:10 Seg Neutrophils % 66.1 % 01/01/17 05:10 Lymphocytes % 19.7 % 01/01/17 05:10 Monocytes % 9.2 % 01/01/17 05:10 Eosinophils % 4.0 % 01/01/17 05:10 Basophils % 0.7 % 01/01/17 05:10 Neutrophils # 5.8 K/mcL (1.6-8.9) 01/01/17 05:10 Lymphocytes # 1.7 K/mcL (0.6-4.6) 01/01/17 05:10 Monocytes # 0.8 K/mcL (0.0-1.3) 01/01/17 05:10 Eosinophils # 0.4 K/mcL (0.0-0.6) 01/01/17 05:10 Basophils # 0.1 K/mcL (0.0-0.2) 01/01/17 05:10 Sodium 140 mEq/L (136-145) 01/01/17 05:10 Potassium 3.7 mEq/L (3.5-4.5) 01/01/17 05:10 Chloride 110 mEq/L (98-109) H 01/01/17 05:10 Carbon Dioxide 19 mEq/L (19-29) 01/01/17 05:10 BUN 18 mg/dL (7-20) 01/01/17 05:10 Creatinine 0.70 mg/dL (0.57-1.11) 01/01/17 05:10 Est GFR ( Amer) > 60 (> 60) 01/01/17 05:10 Est GFR (Non-Af Amer) > 60 (> 60) 01/01/17 05:10 BUN/Creatinine Ratio 26 (6-26) 01/01/17 05:10 Glucose 117 mg/dL (70-99) H 01/01/17 05:10 POC Glucose 108 (58-89) H 01/01/17 05:45 Calculated Osmolality 293 (280-300) 01/01/17 05:10 Lactic Acid 1.2 mmol/L (0.5-2.2) 12/28/16 12:32 Calcium 8.8 mg/dL (8.6-10.8) 01/01/17 05:10 Phosphorus 2.7 mg/dL (2.3-4.7) 12/28/16 12:32 Magnesium 2.1 mg/dL (1.6-2.6) 12/28/16 12:32 Total Bilirubin 0.5 mg/dL (0.2-1.2) 12/29/16 03:18 Direct Bilirubin 0.1 mg/dL (0.0-0.5) 12/28/16 12:32 Indirect Bilirubin 0.2 mg/dL (0.0-1.2) 12/28/16 12:32 AST 20 Units/L (5-34) 12/29/16 03:18 ALT 18 Units/L (0-55) 12/29/16 03:18 Alkaline Phosphatase 69 Units/L (38-126) 12/29/16 03:18 Troponin I 0.02 ng/mL (0-0.03) 12/28/16 12:32 B-Natriuretic Peptide 66 pg/mL (0-100) 12/28/16 12:32 Serum Total Protein 6.5 g/dL (6.0-8.3) 12/29/16 03:18 Albumin 3.2 g/dL (3.5-5.0) L 12/29/16 03:18 Globulin 3.3 g/dL (2.4-3.5) 12/29/16 03:18 Albumin/Globulin Ratio 1.0 (1.1-2.2) L 12/29/16 03:18 Lipase 40 Units/L (8-78) 12/28/16 12:32 Urine Color Yellow (Yellow) 12/28/16 11:56 Urine Clarity Clear (Clear) 12/28/16 11:56 Urine pH 7.0 pH Units (5.0-8.0) 12/28/16 11:56 Ur Specific [place] 1.018 (1.010-1.025) 12/28/16 11:56 Urine Protein Trace mg/dL (Neg-Trace) 12/28/16 11:56 Urine Glucose (UA) 100 mg/dL (Normal) H 12/28/16 11:56 Urine Ketones Trace mg/dL (Negative) H 12/28/16 11:56 Urine Blood Negative (Negative) 12/28/16 11:56 Urine Nitrite Negative (Negative) 12/28/16 11:56 Urine Bilirubin Negative (Negative) 12/28/16 11:56 Urine Urobilinogen Normal mg/dL (Normal) 12/28/16 11:56 Ur Leukocyte Esterase Moderate (Negative) H 12/28/16 11:56 Urine Microscopic RBC 0-3 per hpf (0-3) 12/28/16 11:56 Urine Microscopic WBC 50-100 per hpf (0-3) H 12/28/16 11:56 Ur Squamous Epith Cells Many per lpf (None-Few) H 12/28/16 11:56 Urine Bacteria None Seen per hpf (None-Few) 12/28/16 11:56 Hyaline Casts None Seen per lpf (None-Few) 12/28/16 11:56 Ur Culture Indicated? YES (NO) A 12/28/16 11:56 Consult Discharge Plan - Plan Referrals: Mikie,Rohit Chacko MD [Primary Care Provider] - (pt is from [facility])
[2017-01-01] MEDS ORDERED: Haloperidol Lactate 5 MG/ML VIAL IVP PRN (13:10)
--- NOTE | 2017-01-01 14:39 | General Surgery Progress Note ---
<Yocasta Riley - Last Filed: 01/02/17 08:24> Date of Encounter: 01/02/17 Time of Encounter: 14:15 - Assessment and Plan (1) Dysphagia Current Visit: Yes Status: Acute Psych consult for capacity for decision making completed. Per psych notes, recommendation is to defer decision-making to the health care power of insurance defense attorney. There are no documents on file in the hard chart or in [employer] related to signed RICCARDO, but per chart alcira, patient's brother (Ananth) has been designated. I have reached out to [facility] (Caryl in the business office) will fax patient healthcare power of insurance defense attorney forms. Further recommendations pending. Qualifiers: Dysphagia type: unspecified Qualified Code(s): R13.10 - Dysphagia, unspecified (2) Delirium Current Visit: Yes Status: Acute see above (3) Parkinsons disease Current Visit: Yes Status: Chronic Subjective Narrative: She is not oriented, but does deny abdominal discomfort currently. She is unable to provide subjective information at this time and no family members are at bedside. Objective Vital Signs - Last 8 Hours Temp Pulse Resp BP Pulse Ox 01/01/17 11:15 98.5 F 99 16 166/84 92 01/01/17 07:59 18 94 01/01/17 06:55 98.6 F 84 18 160/80 96 Intake and Output 12/31/16 01/01/17 01/01/17 23:59 07:59 15:59 Intake Total 50 / 50 1100 / 1100 Output Total 450 / 450 50 / 50 Balance -400 / -400 1050 / 1050 Intake: IV Fluids 50 / 50 1100 / 1100 0.9 % Sodium Chloride 1,000 ML 1000 / 1000 @ 50 mls/hr IVC .Q20H [facility] Rx#: [id number] Zosyn 3.375 GM In Dextrose 5% ( 50 / 50 100 / 100 ADD-[place]) 50 ML @ 12.5 mls/ hr IVPB Q8H [facility] Rx#:[id number] Output: Urine 450 / 450 50 / 50 Other: Weight 58.5 kg Blood Glucose* 108 108 Patient Weight 01/01/17 23:59 Weight 58.5 kg - General physical appearance no distress - Eyes other (NADIR) - ENT atraumatic, normocephalic - Neck Neck exam: trachea midline, no venous distension - Respiratory other (Decreased BL breath sounds) - Cardiovascular Cardiovascular exam: Present: RRR, murmurs - Abdomen Abdomen: Present: bowel sounds present, soft, non tender Hernia: none - Integumentary no rash - Neurologic confused - Musculoskeletal normal posture - Psychiatric other (see above; pleasant and cooperative) - Labs 01/02/17 03:36 01/02/17 03:36 Diabetes panel 01/01/17 Range/Units 05:10 Sodium 140 (136-145) mEq/L Potassium 3.7 (3.5-4.5) mEq/L Chloride 110 H (98-109) mEq/L Carbon Dioxide 19 (19-29) mEq/L BUN 18 (7-20) mg/dL Creatinine 0.70 (0.57-1.11) mg/dL Glucose 117 H (70-99) mg/dL Calcium 8.8 (8.6-10.8) mg/dL Calcium panel 01/01/17 Range/Units 05:10 Calcium 8.8 (8.6-10.8) mg/dL Pituitary panel 01/01/17 Range/Units 05:10 Sodium 140 (136-145) mEq/L Potassium 3.7 (3.5-4.5) mEq/L Chloride 110 H (98-109) mEq/L Carbon Dioxide 19 (19-29) mEq/L BUN 18 (7-20) mg/dL Creatinine 0.70 (0.57-1.11) mg/dL Glucose 117 H (70-99) mg/dL Calcium 8.8 (8.6-10.8) mg/dL Adrenal panel 01/01/17 Range/Units 05:10 Sodium 140 (136-145) mEq/L Potassium 3.7 (3.5-4.5) mEq/L Chloride 110 H (98-109) mEq/L Carbon Dioxide 19 (19-29) mEq/L BUN 18 (7-20) mg/dL Creatinine 0.70 (0.57-1.11) mg/dL Glucose 117 H (70-99) mg/dL Calcium 8.8 (8.6-10.8) mg/dL Consult Discharge Plan - Plan Referrals: Rohit Deluna MD [Primary Care Provider] - (pt is from [facility]) <Oksana Mccord - Last Filed: 01/02/17 08:36> Date of Encounter: 01/01/17 - Assessment and Plan (1) Hiatal hernia Current Visit: Yes Status: Chronic (2) Parkinsons disease Current Visit: Yes Status: Chronic (3) Dysphagia Current Visit: Yes Status: Acute per [employer] have received POA paperwork naming patients brother Ananth Chambers POA will plan open gastrostomy tube placement tomorrow will discuss further with POA Qualifiers: Dysphagia type: unspecified Qualified Code(s): R13.10 - Dysphagia, unspecified Subjective Patient reports: no new complaints Objective Vital Signs - Last 8 Hours Temp Pulse Resp BP Pulse Ox 01/02/17 06:31 98.0 F 87 17 157/79 94 01/02/17 04:33 97.6 F 103 18 151/84 94 01/02/17 04:13 15 96 Intake and Output 01/01/17 01/02/17 01/02/17 23:59 07:59 15:59 Intake Total 100 / 100 1000 / 1000 Output Total 650 / 650 Balance -550 / -550 1000 / 1000 Intake: IV Fluids 100 / 100 1000 / 1000 0.9 % Sodium Chloride 1,000 ML 1000 / 1000 @ 50 mls/hr IVC .Q20H [facility] Rx#: [id number] Zosyn 3.375 GM In Dextrose 5% ( 100 / 100 ADD-[place]) 50 ML @ 12.5 mls/ hr IVPB Q8H [facility] Rx#:[id number] Output: Catheter 650 / 650 Other: Weight 58.7 kg Blood Glucose* 100 106 Patient Weight 01/02/17 23:59 Weight 58.7 kg - General physical appearance well developed, well nourished, no distress - Eyes other - ENT atraumatic, normocephalic - Neck Neck exam: trachea midline - Respiratory normal expansion, normal respiratory effort - Cardiovascular Cardiovascular exam: Present: RRR - Abdomen Abdomen: Present: bowel sounds present, soft, non tender - Integumentary no rash, no growths - Neurologic confused - Musculoskeletal normal posture - Psychiatric other - Labs 01/02/17 03:36 01/02/17 03:36 Diabetes panel 01/02/17 Range/Units 03:36 Sodium 140 (136-145) mEq/L Potassium 3.4 L (3.5-4.5) mEq/L Chloride 111 H (98-109) mEq/L Carbon Dioxide 18 L (19-29) mEq/L BUN 15 (7-20) mg/dL Creatinine 0.65 (0.57-1.11) mg/dL Glucose 105 H (70-99) mg/dL Calcium 8.4 L (8.6-10.8) mg/dL Calcium panel 01/02/17 Range/Units 03:36 Calcium 8.4 L (8.6-10.8) mg/dL Pituitary panel 01/02/17 Range/Units 03:36 Sodium 140 (136-145) mEq/L Potassium 3.4 L (3.5-4.5) mEq/L Chloride 111 H (98-109) mEq/L Carbon Dioxide 18 L (19-29) mEq/L BUN 15 (7-20) mg/dL Creatinine 0.65 (0.57-1.11) mg/dL Glucose 105 H (70-99) mg/dL Calcium 8.4 L (8.6-10.8) mg/dL Adrenal panel 01/02/17 Range/Units 03:36 Sodium 140 (136-145) mEq/L Potassium 3.4 L (3.5-4.5) mEq/L Chloride 111 H (98-109) mEq/L Carbon Dioxide 18 L (19-29) mEq/L BUN 15 (7-20) mg/dL Creatinine 0.65 (0.57-1.11) mg/dL Glucose 105 H (70-99) mg/dL Calcium 8.4 L (8.6-10.8) mg/dL - Attending Attestation I have personally performed a face to face evaluation on this patient. I have reviewed and agree with the care plan. History and Exam by me shows:
--- NOTE | 2017-01-01 22:18 | Anesthesia Evaluation PreOp ---
<Rohit Garcia - Last Filed: 01/01/17 23:30> Date of Encounter: 01/01/17 Time of Encounter: 22:13 - Past History Planned Operation: Open G-tube Cardiac History: HTN (poss aspiration pneumonia) Pulmonary History: Former smoker, COPD, Other (aspiration pneumonia) ORTHOPEDIC MECHANIC History: Other (Parkinson's dx, Dementia, anxiety, delerium) Other Medical History: Other (Dysphagia) : No Alcohol Use: none Drug use: none Medications and Allergies Aspirin 325 mg PO DAILY 03/23/15 [History] Folic Acid 0.4 mg PO DAILY 03/23/15 [History] Metoprolol [Lopressor] 25 mg PO BID 03/23/15 [History] Nitroglycerin [Nitrostat] 0.4 mg SL Q5M PRN 03/23/15 [History] Omeprazole [PriLOSEC] 20 mg PO DAILY 03/23/15 [History] Acetaminophen [Tylenol] 1,000 mg PO HS 10/12/16 [History] Acetaminophen [Tylenol] 650 mg PO Q8H PRN 10/12/16 [History] Albuterol Neb [Proventil Neb] 2.5 mg IH Q4H PRN 10/12/16 [History] Albuterol Sulfate [Proair Hfa] 2 puff IH Q4H PRN 10/12/16 [History] Beclomethasone Diprop 40mcg [QVAR 40 mcg] 2 puff IH BID 10/12/16 [History] Carbidopa/Levodopa 25/100 [Sinemet 25/100] 1 each PO 5XD 10/12/16 [History] Cyanocobalamin (Vitamin B-12) [Vitamin B12] 1,000 mcg PO DAILY 10/12/16 [History ] Cyclobenzaprine HCl 5 mg PO TID 10/12/16 [History] Dicyclomine [Bentyl] 10 mg PO BID 10/12/16 [History] Donepezil [Aricept] 5 mg PO HS 10/12/16 [History] Ergocalciferol (VITAMIN D2) [Vitamin D2] 50,000 unit PO SA 10/12/16 [History] Fexofenadine HCl [Allergy Relief] 180 mg PO DAILY 10/12/16 [History] Gabapentin [Neurontin] 300 mg PO QAM 10/12/16 [History] Gabapentin [Neurontin] 600 mg PO HS 10/12/16 [History] Glycopyrrolate [Robinul] 0.5 mg PO BID 10/12/16 [History] Guaifenesin [Mucinex] 600 mg PO Q12H PRN 10/12/16 [History] Lisinopril/Hydrochlorothiazide [Zestoretic 10-12.5 mg Tablet] 1 each PO DAILY [History] Magnesium Hydroxide [Milk of Magnesia] 2,400 mg PO DAILY PRN 10/12/16 [History] Multivit,Th Iron,Other Min [Therems-M] 1 each PO DAILY 10/12/16 [History] Olopatadine HCl [Patanol] 2 drop BOTH EYES BID 10/12/16 [History] Ondansetron HCl [Zofran] 4 mg PO Q6H PRN 10/12/16 [History] Polyethylene Glycol 3350 [MiraLAX] 17 gm PO DAILY PRN 10/12/16 [History] Rivastigmine Tartrate (oral) [Exelon] 3 mg PO BID 10/12/16 [History] Scopolamine Patch [Transderm-Scop] 1.5 mg TD Q72H 10/12/16 [History] Sennosides/Docusate Sodium [Senna-S Tablet] 2 each PO BID 10/12/16 [History] ALPRAZolam [Xanax 0.5 MG Tablet] 0.5 mg PO TID #30 10/14/16 [Rx] HYDROcodone/Acet 5/325 mg [[place] 5-325 mg] 1 tab PO Q6H PRN #20 10/14/16 [Rx] Ropinirole HCl [Requip] 0.25 mg PO HS 12/28/16 [History] Sertraline [Zoloft] 50 mg PO DAILY 12/28/16 [History] 3 Allergy/AdvReac Type Severity Reaction Status Date / Time meperidine [From Demerol] Allergy Rash Verified 12/28/16 11:14 - Meds/Allergy Pre-op Review Medications Reviewed: Yes Allergies Reviewed: Yes Beta Blockers on Current Med List: Yes Anesthesia Results - Labs 01/01/17 05:10 01/01/17 05:10 - Imaging EKG: image reviewed (SINUS RHYTHM SEPTAL MYOCARDIAL INFARCTION , PROBABLY OLD) Chest x-ray: report reviewed (1. Minimal bibasilar atelectasis. 2. Pulmonary vascular congestion, chronic interstitial change, and/or central vascular crowding. 3. Large hiatal hernia filled with gas likely within stomach with no findings of gastric volvulus on yesterday's CT.), image reviewed Anesthesia Exam O2 Sat Weight 58.5 kg O2 Sat by Pulse Oximetry 95 O2 Sat by Pulse Oximetry 95 O2 Sat by Pulse Oximetry 97 O2 Sat by Pulse Oximetry 93 O2 Sat by Pulse Oximetry 92 O2 Sat by Pulse Oximetry 94 O2 Sat by Pulse Oximetry 96 O2 Sat by Pulse Oximetry 94 O2 Sat by Pulse Oximetry 90 O2 Sat by Pulse Oximetry 92 O2 Sat by Pulse Oximetry 94 Vital Signs Temp Pulse Resp BP Pulse Ox 96.6 F L 98 18 198/114 98 12/28/16 11:14 12/28/16 11:14 12/28/16 11:14 12/28/16 11:14 12/28/16 11:14 Vital Signs/O2 Sat, Most Current Temp Pulse Resp BP Pulse Ox 98.3 F 95 20 152/82 95 01/01/17 19:39 01/01/17 19:39 01/01/17 19:40 01/01/17 21:08 01/01/17 19:40 Height: 5'5'' Weight: 128# NPO (# of Hours): > 8 hrs Pain Scale: 0 - ORTHOPEDIC MECHANIC LOC: Confused, Disoriented ORTHOPEDIC MECHANIC Motor: Normal RUE, Normal LUE, Normal RLE, Normal LLE, Normal Face - Cardiac Rhythm: Regular Murmur: None JVD: No Carotid Bruit: No - Additional Findings Patient deemed by psychiatry to be unable to make decisions regarding her healthcare. Her brother Ananth Chambers is POA. Poa documents being faxed today. Ananth ( )not available at 23:30 01/01/2017. Will obtain consent in AM. Anesthesia Assess/Plan ASA Score: 3 Modified Pfeifer Scale for Level of Consciousness: Cooperative, oriented, and tranquil (Demetia, poor historian,) <Jeannette Carrillo - Last Filed: 01/03/17 16:51> Date of Encounter: 01/03/17 - Past History Anesthesia History: No Prior Anesthetic Complications (never underwent anesthesia previously per her brother (POA)) Anesthesia Results - Labs 01/02/17 03:36 01/03/17 03:45 Anesthesia Exam - HEENT Pupil (Motor): Pupils equal, EOMI Mallampati: II Teeth: Edentulous Oral Opening: Greater than 3 Anesthesia Assess/Plan Anesthetic Plan: General Monitoring Plan: Standard Monitors Recovery Plan: PACU
[2017-01-02] MEDS: Ipratropium Neb 0.5 MG NEBULIZER IH SCH ×7 (00:05→23:41)
[2017-01-02] MEDS: Levalbuterol Neb 1.25 MG/3 ML IH SCH ×7 (00:06→23:41)
[2017-01-02] MEDS: Piperacillin/Tazobactam 3.375 GM in D5% in Water 50 ML IVPB SCH ×3 (02:00→16:30)
[2017-01-02] MEDS: *HR* Metoprolol 5 MG/5 ML VIAL IVP SCH ×4 (02:01→16:29)
[2017-01-02] MEDS: Gabapentin 300 MG CAPSULE PO SCH ×3 (02:06→22:03)
[2017-01-02] MEDS: Carbidopa/Levodopa 25/100 TABLET PO SCH ×5 (02:06→22:03)
[2017-01-02] MEDS: Rivastigmine Tartrate (oral) 1.5 MG CAPSULE PO SCH ×3 (02:06→22:03)
[2017-01-02] MEDS: 0.9 % Sodium Chloride 1,000 ML IVC SCH (02:06)
[2017-01-02] MEDS: Sennosides/Docusate Sodium TABLET PO SCH ×3 (02:07→22:04)
[2017-01-02] MEDS: ALPRAZolam 0.5 MG TABLET PO SCH ×4 (02:07→22:04)
[2017-01-02] MEDS: rOPINIRole 0.25 MG TABLET PO SCH ×2 (02:07→22:04)
[2017-01-02] MEDS: Glycopyrrolate 1 MG TABLET PO SCH ×3 (02:07→22:04)
[2017-01-02 04:30] LABS: Basophils # 0.1 K/mcL (0.0-0.2); Basophils % 0.9 %; Eosinophils # 0.3 K/mcL (0.0-0.6); Eosinophils % 3.8 %; Hematocrit 36.3 % (35.3-44.9); Hemoglobin 11.9 g/dL (11.5-15.4); Immature Granulocytes % 0.2 % (0-4); Lymphocytes # 1.8 K/mcL (0.6-4.6); Lymphocytes % 21.2 %; Mean Corpuscular HGB Conc 32.8 g/dL (31.6-35.5); Mean Corpuscular Volume 91.4 fL (83.0-100.0); Mean Platelet Volume 9.7 fL (9.4-12.4); Monocytes # 0.8 K/mcL (0.0-1.3); Monocytes % 9.1 %; Neutrophils # 5.6 K/mcL (1.6-8.9); Platelet Count 228 K/mcL (140-400); Red Blood Count 3.97 M/mcL (3.82-4.97); Red Cell Distribution Width 12.8 % (11.5-14.5); Segmented Neutrophils % 64.8 %
[2017-01-02 04:46] LABS: BUN/Creatinine Ratio 23 (6-26); Blood Urea Nitrogen 15 mg/dL (7-20); Calcium 8.4 mg/dL (8.6-10.8); Carbon Dioxide 18 mEq/L (19-29); Chloride 111 mEq/L (98-109); Glucose 105 mg/dL (70-99); Osmolality,Calculated 291 (280-300); Potassium 3.4 mEq/L (3.5-4.5); Sodium 140 mEq/L (136-145); eGFR For African Americans > 60 (> 60); eGFR For Non-African Americans > 60 (> 60)
[2017-01-02] MEDS: *HR* Heparin 5,000 UNIT/ML VIAL SQ SCH ×2 (05:59→16:29)
[2017-01-02] MEDS: Folic Acid 1 MG TABLET PO SCH (07:39)
[2017-01-02] MEDS: Aspirin 325 MG TABLET PO SCH (07:39)
[2017-01-02] MEDS ORDERED: Potassium Chloride 40 MEQ, Lidocaine 1% 2 ML in D5% in Water 500 ML IVPB ONE (08:48)
--- NOTE | 2017-01-02 19:25 | Internal Med Progress Note ---
Date of Encounter: 01/02/17 Time of Encounter: 19:23 - Assessment and plan (1) Sepsis Current Visit: Yes Status: Acute Qualifiers: Sepsis type: sepsis due to unspecified organism Qualified Code(s): A41.9 - Sepsis, unspecified organism (2) Aspiration pneumonia Current Visit: Yes Status: Suspected Qualifiers: Aspiration pneumonia type: unspecified Laterality: unspecified laterality Lung location: unspecified part of lung Qualified Code(s): J69.0 - Pneumonitis due to inhalation of food and vomit (3) Dysphagia Current Visit: Yes Status: Acute Qualifiers: Dysphagia type: unspecified Qualified Code(s): R13.10 - Dysphagia, unspecified (4) UTI (urinary tract infection) Current Visit: Yes Status: Ruled-out Qualifiers: Urinary tract infection type: site unspecified Hematuria presence: without hematuria Qualified Code(s): N39.0 - Urinary tract infection, site not specified (5) HTN (hypertension) Current Visit: Yes Status: Chronic Qualifiers: Hypertension type: essential hypertension Qualified Code(s): I10 - Essential (primary) hypertension (6) COPD (chronic obstructive pulmonary disease) Current Visit: Yes Status: Chronic Qualifiers: COPD type: unspecified COPD Qualified Code(s): J44.9 - Chronic obstructive pulmonary disease, unspecified (7) Parkinsons disease Current Visit: Yes Status: Chronic - Subjective Interval history: Admitted for UTI and pneumonia. Underlying Parkinson dementia and dysphagia. Plan for PEG tube. Potassium is 3.4 supplemented - Constitutional Vitals: Temp Pulse Resp BP Pulse Ox 98.0 F 94 18 160/70 96 01/02/17 15:31 01/02/17 15:31 01/02/17 16:09 01/02/17 15:31 01/02/17 16:09 General appearance: Present: cooperative, A&O X 1, pleasant, no acute distress, answers questions appropriately - Head Head exam: Present: atraumatic, normocephalic - Eye Eye exam: Present: PERRL, conjuntiva pink, sclera anicteric Pupils: Present: PERRL - Neck Neck exam general surgery: Present: supple, trachea midline. Absent: lymphadenopathy - Respiratory Respiratory exam: Present: CTAB. Absent: accessory muscle use, rales, rhonchi, wheezes - Cardiovascular Cardiovascular exam: Present: RRR, +S1, +S2. Absent: diastolic murmur, gallop, rubs, systolic murmur - GI/Abdominal GI/Abdominal exam: Present: normal bowel sounds, soft, no peritoneal signs. Absent: distended, tenderness - Extremities Exam Extremities exam: Present: warm, radial pulses palpable and symmetrical. Absent : calf tenderness, cyanotic, pedal edema - Neurological Exam Neurological exam: Present: CN II-XII intact, oriented X3, no focal deficits. Absent: pronater drift, facial droop, speech deficit - Skin Skin exam: Present: dry, intact Internal Medicine: Result - Labs CBC & Chem 7: 01/02/17 03:36 01/02/17 03:36 Labs: Short CBC 01/02/17 Range/Units 03:36 WBC 8.6 (4.3-11.1) K/mcL Hgb 11.9 (11.5-15.4) g/dL Hct 36.3 (35.3-44.9) % Plt Count 228 (140-400) K/mcL Neutrophils # 5.6 (1.6-8.9) K/mcL BMP 01/02/17 03:36 Sodium 140 Potassium 3.4 L Chloride 111 H Carbon Dioxide 18 L BUN 15 Creatinine 0.65 Glucose 105 H Calcium 8.4 L Consult Discharge Plan - Plan Referrals: Ucmulugeta,Rohit Chacko MD [Primary Care Provider] - (pt is from [facility])
[2017-01-03] MEDS: *HR* Metoprolol 5 MG/5 ML VIAL IVP SCH ×4 (00:29→23:45)
[2017-01-03] MEDS: Carbidopa/Levodopa 25/100 TABLET PO SCH ×4 (00:29→14:16)
[2017-01-03] MEDS: 0.9 % Sodium Chloride 1,000 ML IVC SCH (00:29)
[2017-01-03] MEDS: Piperacillin/Tazobactam 3.375 GM in D5% in Water 50 ML IVPB SCH ×3 (00:30→23:46)
[2017-01-03] MEDS: Levalbuterol Neb 1.25 MG/3 ML IH SCH ×2 (03:21→07:31)
[2017-01-03] MEDS: Ipratropium Neb 0.5 MG NEBULIZER IH SCH ×2 (03:21→07:31)
[2017-01-03 04:08] LABS: Alanine Aminotransferase 30 Units/L (0-55); Albumin/Globulin Ratio 0.9 (1.1-2.2); Alkaline Phosphatase 70 Units/L (38-126); Aspartate Amino Transferase 22 Units/L (5-34); BUN/Creatinine Ratio 16 (6-26); Bilirubin,Total 0.6 mg/dL (0.2-1.2); Blood Urea Nitrogen 11 mg/dL (7-20); Calcium 8.8 mg/dL (8.6-10.8); Carbon Dioxide 17 mEq/L (19-29); Chloride 109 mEq/L (98-109); Globulin 3.3 g/dL (2.4-3.5); Glucose 115 mg/dL (70-99); Osmolality,Calculated 286 (280-300); Potassium 3.4 mEq/L (3.5-4.5); Sodium 138 mEq/L (136-145); Total Protein 6.3 g/dL (6.0-8.3); eGFR For African Americans > 60 (> 60); eGFR For Non-African Americans > 60 (> 60)
[2017-01-03] MEDS: *HR* Heparin 5,000 UNIT/ML VIAL SQ SCH (06:16)
[2017-01-03] MEDS ORDERED: Potassium Chloride 40 MEQ, Lidocaine 1% 2 ML in D5% in Water 500 ML IVPB ONE (08:19)
[2017-01-03] MEDS: ALPRAZolam 0.5 MG TABLET PO SCH ×2 (08:52→14:16)
[2017-01-03] MEDS ORDERED: Ipratropium Neb 0.5 MG NEBULIZER IH PRN (09:26)
[2017-01-03] MEDS ORDERED: Levalbuterol Neb 1.25 MG/3 ML IH PRN ×2 (09:27→21:32)
[2017-01-03] MEDS: Rivastigmine Tartrate (oral) 1.5 MG CAPSULE PO SCH (09:51)
[2017-01-03] MEDS: Gabapentin 300 MG CAPSULE PO SCH (09:51)
[2017-01-03] MEDS: Glycopyrrolate 1 MG TABLET PO SCH (09:51)
[2017-01-03] MEDS: Sennosides/Docusate Sodium TABLET PO SCH (09:51)
[2017-01-03] MEDS: Aspirin 325 MG TABLET PO SCH (09:51)
[2017-01-03] MEDS: Folic Acid 1 MG TABLET PO SCH (09:51)
--- NOTE | 2017-01-03 16:24 | Internal Med Progress Note ---
Date of Encounter: 01/03/17 Time of Encounter: 16:23 - Assessment and plan (1) Sepsis Current Visit: Yes Status: Acute Qualifiers: Sepsis type: sepsis due to unspecified organism Qualified Code(s): A41.9 - Sepsis, unspecified organism (2) Aspiration pneumonia Current Visit: Yes Status: Suspected Qualifiers: Aspiration pneumonia type: unspecified Laterality: unspecified laterality Lung location: unspecified part of lung Qualified Code(s): J69.0 - Pneumonitis due to inhalation of food and vomit (3) Dysphagia Current Visit: Yes Status: Acute Qualifiers: Dysphagia type: unspecified Qualified Code(s): R13.10 - Dysphagia, unspecified (4) UTI (urinary tract infection) Current Visit: Yes Status: Ruled-out Qualifiers: Urinary tract infection type: site unspecified Hematuria presence: without hematuria Qualified Code(s): N39.0 - Urinary tract infection, site not specified (5) HTN (hypertension) Current Visit: Yes Status: Chronic Qualifiers: Hypertension type: essential hypertension Qualified Code(s): I10 - Essential (primary) hypertension (6) COPD (chronic obstructive pulmonary disease) Current Visit: Yes Status: Chronic Qualifiers: COPD type: unspecified COPD Qualified Code(s): J44.9 - Chronic obstructive pulmonary disease, unspecified (7) Parkinsons disease Current Visit: Yes Status: Chronic - Subjective Interval history: Admitted for UTI and pneumonia. Underlying Parkinson dementia and dysphagia. Plan for PEG tube and awaiting for surgery today. Potassium is 3.4 supplemented - Constitutional Vitals: Temp Pulse Resp BP Pulse Ox 98.0 F 110 17 146/48 96 01/03/17 10:33 01/03/17 15:39 01/03/17 15:39 01/03/17 15:39 01/03/17 15:39 General appearance: Present: cooperative, A&O X 1, pleasant, no acute distress, answers questions appropriately - Head Head exam: Present: atraumatic, normocephalic - Eye Eye exam: Present: PERRL, conjuntiva pink, sclera anicteric Pupils: Present: PERRL - Neck Neck exam general surgery: Present: supple, trachea midline. Absent: lymphadenopathy - Respiratory Respiratory exam: Present: CTAB. Absent: accessory muscle use, rales, rhonchi, wheezes - Cardiovascular Cardiovascular exam: Present: RRR, +S1, +S2. Absent: diastolic murmur, gallop, rubs, systolic murmur - GI/Abdominal GI/Abdominal exam: Present: normal bowel sounds, soft, no peritoneal signs. Absent: distended, tenderness - Extremities Exam Extremities exam: Present: warm, radial pulses palpable and symmetrical. Absent : calf tenderness, cyanotic, pedal edema - Neurological Exam Neurological exam: Present: CN II-XII intact, oriented X3, no focal deficits. Absent: pronater drift, facial droop, speech deficit - Skin Skin exam: Present: dry, intact Internal Medicine: Result - Labs CBC & Chem 7: 01/02/17 03:36 01/03/17 03:45 Labs: BMP 01/03/17 03:45 Sodium 138 Potassium 3.4 L Chloride 109 Carbon Dioxide 17 L BUN 11 Creatinine 0.68 Glucose 115 H Calcium 8.8 Liver Function 01/03/17 Range/Units 03:45 Total Bilirubin 0.6 (0.2-1.2) mg/dL AST 22 (5-34) Units/L ALT 30 (0-55) Units/L Alkaline Phosphatase 70 (38-126) Units/L Albumin 3.0 L (3.5-5.0) g/dL Consult Discharge Plan - Plan Referrals: Rohit Deluna MD [Primary Care Provider] - (pt is from [facility])
[2017-01-03] MEDS ORDERED: Dexamethasone 4 MG/ML VIAL ONE (18:55)
[2017-01-03] MEDS ORDERED: *HR* FentaNYL (PF) 100 MCG/2 ML VIAL ONE (18:55)
[2017-01-03] MEDS ORDERED: Lidocaine -MPF 2% 2 ML VIAL ONE (18:55)
[2017-01-03] MEDS ORDERED: *HR* Succinylcholine 200 MG/10 ML VIAL IVP ONE (18:55)
[2017-01-03] MEDS ORDERED: Ondansetron 4 MG/2 ML VIAL ONE (18:55)
[2017-01-03] MEDS ORDERED: *HR* Propofol 200 MG/20 ML VIAL IVP ONE (18:55)
[2017-01-03] MEDS ORDERED: *HR* Rocuronium Bromide 50 MG/5 ML VIAL ONE (20:05)
[2017-01-03] MEDS: *HR* Morphine 2 MG/ML SYRINGE IVP PRN ×2 (20:28→20:40)
[2017-01-03] MEDS ORDERED: Ringers Solution, Lactated 1,000 ML ONE (20:35)
--- NOTE | 2017-01-03 20:39 | Operative Note ---
Date of procedure: 01/03/17 Pre-op diagnosis: dysphagia Post-op diagnosis: same Procedure: Open gastrostomy tube Complications: none immediate Anesthesia: GETA, local Local Anesthetics: 0.5% Sensorcaine HCL SubQ (cc) (30) Surgeon: Oksana Mccord Solvent Mixer: Hilary Hagan Estimated blood loss (cc): 5 Specimen: none Condition: stable Disposition: PACU Procedure in Detail: Patient was brought to the operating suite and placed supine on the operating table. Sign in was performed and everyone was in agreement. Anesthesia was induced and patient was endotracheally intubated by anesthesia without incident. Her abdomen was prepped and draped in the usual sterile fashion. Timeout was performed again everyone was in agreement. An upper midline incision through the skin and the subcutaneous tissues made with a 15 blade. We dissected through the subcutaneous tissue to the anterior abdominal wall linea alba fascia with the Bovie. The fascia was split with the Bovie. Sparkman' s were placed on either side of the fascia for retraction. We entered the abdomen with the Bovie and gentle blunt dissection. The distal greater curvature of the stomach was grasped with 2 [place] for retraction. A 2-0 silk pursestring stitch was placed and another 2-0 silk pursestring stitch placed around that. The anterior abdominal wall of the stomach is opened with the Bovie. An incision in the left upper quadrant was made through the skin and the subcutaneous tissue with a 15 blade. Kyle's were placed on the left abdominal wall fascia for retraction. Using a tonsil a stab incision was made through the posterior abdominal wall out through the left upper quadrant incision. The 20-Moroc[place] open G-tube was pulled through the abdominal wall. The G-tube was placed through the stomach gastrotomy. The G-tube balloon was insufflated with 20 mL of sterile water. The inner and outer 2-0 silk stitches were tied. It was then noted that the balloon would not hold the water. The pursestring stitches were cut and removed as was the open G-tube. Another G- tube was placed through the abdominal wall into the abdominal cavity. 2-0 silk pursestring stitches 2 were placed on the stomach at the same site. The G- tube was placed in the stomach and the balloon insufflated with 20 mL of sterile water. Both pursestring stitches were tied. The stomach around the G- tube was secured to the anterior abdominal wall with 5 separate 2-0 silk stitches. The fascia was closed with 2 separate #1 non-looped PDS running stitches meeting in the middle. The subcutaneous tissue was copiously irrigated with sterile saline. The subcutaneous tissue was reapproximated with 3-0 Vicryl interrupted stitches. [place] were applied to the skin. 3-0 silk stitches were secured through the G-tube bumper to the abdominal wall skin. 4 x 4 gauze and Medipore tape were applied to the midline incision as a dressing. 4 x 4 gauze folded in half and placed under each side of the gastrostomy tube bumper, as well as a ABD pad placed under the end of the gastrostomy tube. An abdominal binder was placed around the patient loosely. All lap and instrument counts were correct at the end of the case. Patient tolerated the procedure well. She was awoken by anesthesia without incident and extubated in the OR. She was taken to PACU in stable condition.
[2017-01-03] MEDS ORDERED: Ringers Solution, Lactated 1,000 ML IVC SCH (20:45)
[2017-01-03] MEDS ORDERED: *HR* Labetalol 20 MG/4 ML SYRINGE IVP ONE ×2 (20:58→20:59)
--- NOTE | 2017-01-03 21:22 | Anesthesia Evaluation Post Op ---
Date of Encounter: 01/03/17 Time of Encounter: 21:21 - Vital Signs Vital Signs: Vital Signs/O2 Sat, Most Current Temp Pulse Resp BP Pulse Ox 98.2 F 86 16 156/73 98 01/03/17 21:20 01/03/17 21:20 01/03/17 21:20 01/03/17 21:20 01/03/17 21:20 - Lungs Lungs: Clear Ascult./Percussion - Airway Airway: Non-obstructed - Cardiovascular Regular Rate - Mental Status Mental Status: Alert & Oriented, Answers Appropriately - Pain Pain Scale: 2 - Nausea Vomiting Nausea Vomiting: Not Present - Hydration Hydration: NPO, Vázquez catheter - Discharge PostOp Status: Transfer Patient to floor
[2017-01-03] MEDS ORDERED: Ondansetron 4 MG/2 ML VIAL IVP PRN (21:32)
[2017-01-03] MEDS ORDERED: Haloperidol Lactate 5 MG/ML VIAL IVP PRN (21:32)
[2017-01-03] MEDS ORDERED: 0.9 % Sodium Chloride 1,000 ML IVC SCH (21:32)
[2017-01-03] MEDS ORDERED: Naloxone 0.4 MG/ML INJ IVP PRN (21:32)
[2017-01-03] MEDS: Carbidopa/Levodopa 25/100 TABLET GTUBE SCH (23:46)
[2017-01-04 05:53] LABS: Alkaline Phosphatase 69 Units/L (38-126); Aspartate Amino Transferase 21 Units/L (5-34); BUN/Creatinine Ratio 15 (6-26); Bilirubin,Total 0.9 mg/dL (0.2-1.2); Blood Urea Nitrogen 10 mg/dL (7-20); Carbon Dioxide 20 mEq/L (19-29); Chloride 105 mEq/L (98-109); Glucose 139 mg/dL (70-99); Osmolality,Calculated 283 (280-300); Sodium 136 mEq/L (136-145); eGFR For African Americans > 60 (> 60); eGFR For Non-African Americans > 60 (> 60)
[2017-01-04 06:29] LABS: Alanine Aminotransferase < 6 Units/L (0-55)
[2017-01-04] MEDS: *HR* Heparin 5,000 UNIT/ML VIAL SQ SCH ×2 (06:33→16:35)
[2017-01-04] MEDS: *HR* Metoprolol 5 MG/5 ML VIAL IVP SCH ×2 (06:33→11:38)
[2017-01-04] MEDS: Scopolamine Patch 1.5 MG PATCH.TD72 TD SCH (06:34)
[2017-01-04] MEDS: *HR* Morphine 2 MG/ML SYRINGE IVP PRN (09:06)
[2017-01-04] MEDS: Piperacillin/Tazobactam 3.375 GM in D5% in Water 50 ML IVPB SCH ×4 (09:09→17:48)
[2017-01-04] MEDS: Folic Acid 1 MG TABLET GTUBE SCH (09:10)
[2017-01-04] MEDS: Gabapentin 300 MG CAPSULE GTUBE SCH ×2 (09:10→21:42)
[2017-01-04] MEDS: Rivastigmine Tartrate (oral) 1.5 MG CAPSULE GTUBE SCH ×2 (09:11→21:44)
[2017-01-04] MEDS: Glycopyrrolate 1 MG TABLET GTUBE SCH ×2 (09:11→21:43)
[2017-01-04] MEDS: ALPRAZolam 0.5 MG TABLET GTUBE SCH ×3 (09:11→21:45)
[2017-01-04] MEDS: Carbidopa/Levodopa 25/100 TABLET GTUBE SCH ×4 (09:14→23:43)
--- NOTE | 2017-01-04 11:47 | General Surgery Progress Note ---
<OsvaldoYocasta David - Last Filed: 01/04/17 13:07> Date of Encounter: 01/04/17 Time of Encounter: 11:46 - Assessment and Plan (1) Dysphagia Current Visit: Yes Status: Acute s/p open gastrostomy tube placement 01/03/2017. Surgical sites is clean, dry, and intact. [place] and Sutures remain in place. Okay to use peg tube for medications and water. May begin TF after 8 PM on 01/04/2017. Surgery will sign off at this time. She will need a follow-up in the office for staple/suture removal in aprox 2 weeks. Qualifiers: Dysphagia type: unspecified Qualified Code(s): R13.10 - Dysphagia, unspecified (2) Parkinsons disease Current Visit: Yes Status: Chronic Subjective Narrative: Unable to obtain subjective information. Patient does answer "I do feel better. " Objective Vital Signs - Last 8 Hours Temp Pulse Resp BP Pulse Ox 01/04/17 10:41 98.1 F 96 15 149/76 96 01/04/17 09:45 96 01/04/17 06:49 97.7 F 93 16 171/83 96 01/04/17 06:42 98.3 F 80 13 170/81 94 Intake and Output 01/03/17 01/04/17 01/04/17 23:59 07:59 15:59 Intake Total 0 / 0 110 / 110 400 / 400 Output Total 0 / 0 800 / 800 450 / 450 Balance 0 / 0 -690 / -690 -50 / -50 Intake: IV Fluids 50 / 50 Zosyn 3.375 GM In Dextrose 5% ( 50 / 50 ADD-Benton) 50 ML @ 12.5 mls/ hr IVPB Q8H [facility] Rx#:[id number] Oral 0 / 0 Free Water 200 / 200 Free Water Intake Amount 60 / 60 200 / 200 Output: Urine 0 / 0 0 / 0 Catheter 800 / 800 450 / 450 Other: Weight 59.7 kg Blood Glucose* 113 119 Patient Weight 01/04/17 23:59 Weight 59.7 kg - General physical appearance no distress - ENT atraumatic, normocephalic - Neck Neck exam: trachea midline - Respiratory other (Decreased breath sounds) - Cardiovascular Cardiovascular exam: Present: RRR, murmurs - Abdomen Abdomen: Present: bowel sounds present, soft, tender (Expected postoperative tenderness only around the peg site.) Hernia: none - Incision Incision: Present: clean and dry, intact - Integumentary no growths - Neurologic disoriented - Musculoskeletal normal posture - Psychiatric speech is normal - Labs 01/02/17 03:36 01/04/17 05:17 Diabetes panel 01/04/17 Range/Units 05:17 Sodium 136 (136-145) mEq/L Potassium 4.0 (3.5-4.5) mEq/L Chloride 105 (98-109) mEq/L Carbon Dioxide 20 (19-29) mEq/L BUN 10 (7-20) mg/dL Creatinine 0.66 (0.57-1.11) mg/dL Glucose 139 H (70-99) mg/dL Calcium 9.0 (8.6-10.8) mg/dL AST 21 (5-34) Units/L ALT < 6 (0-55) Units/L Alkaline Phosphatase 69 (38-126) Units/L Albumin 3.0 L (3.5-5.0) g/dL Calcium panel 01/04/17 Range/Units 05:17 Calcium 9.0 (8.6-10.8) mg/dL Albumin 3.0 L (3.5-5.0) g/dL Pituitary panel 01/04/17 Range/Units 05:17 Sodium 136 (136-145) mEq/L Potassium 4.0 (3.5-4.5) mEq/L Chloride 105 (98-109) mEq/L Carbon Dioxide 20 (19-29) mEq/L BUN 10 (7-20) mg/dL Creatinine 0.66 (0.57-1.11) mg/dL Glucose 139 H (70-99) mg/dL Calcium 9.0 (8.6-10.8) mg/dL Adrenal panel 01/04/17 Range/Units 05:17 Sodium 136 (136-145) mEq/L Potassium 4.0 (3.5-4.5) mEq/L Chloride 105 (98-109) mEq/L Carbon Dioxide 20 (19-29) mEq/L BUN 10 (7-20) mg/dL Creatinine 0.66 (0.57-1.11) mg/dL Glucose 139 H (70-99) mg/dL Calcium 9.0 (8.6-10.8) mg/dL Total Bilirubin 0.9 (0.2-1.2) mg/dL AST 21 (5-34) Units/L ALT < 6 (0-55) Units/L Alkaline Phosphatase 69 (38-126) Units/L Albumin 3.0 L (3.5-5.0) g/dL - VTE Documentation of Mechanical Device: Intermittent pneumatic compression device Consult Discharge Plan - Plan Instructions: How to Use and Care for Your PEG Tube (DC) Referrals: Rohit Deluna MD [Primary Care Provider] - (pt is from [facility]) Rebekah Lobo CNP [Advanced Practice Nurse] - 01/22/17 9:20 am <Oksana Mccord - Last Filed: 01/04/17 16:41> Date of Encounter: 01/04/17 - Assessment and Plan (1) Hiatal hernia Current Visit: Yes Status: Chronic (2) Parkinsons disease Current Visit: Yes Status: Chronic (3) Dysphagia Current Visit: Yes Status: Acute wash peg site with soap and water daily, apply 1 drain sponge to peg, cover midline with 4x4 gauze and tape and change daily ok to use open gastrostomy tube for water and meds for 1st 24 hrs after OR ok to use open Gtube for tube feeds 24 hrs after surgery keep HOB 30 degrees at all times keep abd pad under gastrostomy tube end so not to put pressure on skin, keep binder on LOOSELY, just to protect peg from patient Qualifiers: Dysphagia type: unspecified Qualified Code(s): R13.10 - Dysphagia, unspecified Subjective Narrative: states yes when asked if her belly hurts Objective Vital Signs - Last 8 Hours Temp Pulse Resp BP Pulse Ox 01/04/17 15:44 97.5 F L 97 15 157/76 98 01/04/17 10:41 98.1 F 96 15 149/76 96 01/04/17 09:45 96 Intake and Output 01/04/17 01/04/17 01/04/17 07:59 15:59 23:59 Intake Total 110 / 110 600 / 600 Output Total 800 / 800 1050 / 1050 Balance -690 / -690 -450 / -450 Intake: IV Fluids 50 / 50 Zosyn 3.375 GM In Dextrose 5% ( 50 / 50 ADD-Benton) 50 ML @ 12.5 mls/ hr IVPB Q8H [facility] Rx#:[id number] Free Water 200 / 200 Free Water Intake Amount 60 / 60 400 / 400 Output: Urine 600 / 600 Catheter 800 / 800 450 / 450 Other: Weight 59.7 kg Blood Glucose* 119 116 Patient Weight 01/04/17 23:59 Weight 59.7 kg - General physical appearance well nourished, no distress - Eyes PERRL, normal ocular movement - ENT dry mucosa, atraumatic, normocephalic - Neck Neck exam: trachea midline - Respiratory normal expansion, normal respiratory effort - Cardiovascular Cardiovascular exam: Present: RRR - Abdomen Abdomen: Present: bowel sounds present, soft, tender - Incision Incision: Present: clean and dry, intact - Integumentary no growths - Neurologic disoriented - Musculoskeletal normal posture - Psychiatric speech is normal - Labs 01/02/17 03:36 01/04/17 05:17 Diabetes panel 01/04/17 Range/Units 05:17 Sodium 136 (136-145) mEq/L Potassium 4.0 (3.5-4.5) mEq/L Chloride 105 (98-109) mEq/L Carbon Dioxide 20 (19-29) mEq/L BUN 10 (7-20) mg/dL Creatinine 0.66 (0.57-1.11) mg/dL Glucose 139 H (70-99) mg/dL Calcium 9.0 (8.6-10.8) mg/dL AST 21 (5-34) Units/L ALT < 6 (0-55) Units/L Alkaline Phosphatase 69 (38-126) Units/L Albumin 3.0 L (3.5-5.0) g/dL Calcium panel 01/04/17 Range/Units 05:17 Calcium 9.0 (8.6-10.8) mg/dL Albumin 3.0 L (3.5-5.0) g/dL Pituitary panel 01/04/17 Range/Units 05:17 Sodium 136 (136-145) mEq/L Potassium 4.0 (3.5-4.5) mEq/L Chloride 105 (98-109) mEq/L Carbon Dioxide 20 (19-29) mEq/L BUN 10 (7-20) mg/dL Creatinine 0.66 (0.57-1.11) mg/dL Glucose 139 H (70-99) mg/dL Calcium 9.0 (8.6-10.8) mg/dL Adrenal panel 01/04/17 Range/Units 05:17 Sodium 136 (136-145) mEq/L Potassium 4.0 (3.5-4.5) mEq/L Chloride 105 (98-109) mEq/L Carbon Dioxide 20 (19-29) mEq/L BUN 10 (7-20) mg/dL Creatinine 0.66 (0.57-1.11) mg/dL Glucose 139 H (70-99) mg/dL Calcium 9.0 (8.6-10.8) mg/dL Total Bilirubin 0.9 (0.2-1.2) mg/dL AST 21 (5-34) Units/L ALT < 6 (0-55) Units/L Alkaline Phosphatase 69 (38-126) Units/L Albumin 3.0 L (3.5-5.0) g/dL - Attending Attestation I have personally performed a face to face evaluation on this patient. I have reviewed and agree with the care plan. History and Exam by me shows:
--- NOTE | 2017-01-04 13:49 | Internal Med Progress Note ---
Date of Encounter: 01/04/17 Time of Encounter: 13:47 - Assessment and plan (1) Sepsis Current Visit: Yes Status: Acute Qualifiers: Sepsis type: sepsis due to unspecified organism Qualified Code(s): A41.9 - Sepsis, unspecified organism (2) Aspiration pneumonia Current Visit: Yes Status: Suspected Qualifiers: Aspiration pneumonia type: unspecified Laterality: unspecified laterality Lung location: unspecified part of lung Qualified Code(s): J69.0 - Pneumonitis due to inhalation of food and vomit (3) Dysphagia Current Visit: Yes Status: Acute Qualifiers: Dysphagia type: unspecified Qualified Code(s): R13.10 - Dysphagia, unspecified (4) UTI (urinary tract infection) Current Visit: Yes Status: Ruled-out Qualifiers: Urinary tract infection type: site unspecified Hematuria presence: without hematuria Qualified Code(s): N39.0 - Urinary tract infection, site not specified (5) HTN (hypertension) Current Visit: Yes Status: Chronic Qualifiers: Hypertension type: essential hypertension Qualified Code(s): I10 - Essential (primary) hypertension (6) COPD (chronic obstructive pulmonary disease) Current Visit: Yes Status: Chronic Qualifiers: COPD type: unspecified COPD Qualified Code(s): J44.9 - Chronic obstructive pulmonary disease, unspecified (7) Parkinsons disease Current Visit: Yes Status: Chronic - Subjective Interval history: Admitted for UTI and pneumonia. Underlying Parkinson dementia and dysphagia. PEG tube placed yesterday. Bowel sounds absent. Add Reglan and start to feed from tomorrow - Constitutional Vitals: Temp Pulse Resp BP Pulse Ox 98.1 F 96 15 149/76 96 01/04/17 10:41 01/04/17 10:41 01/04/17 10:41 01/04/17 10:41 01/04/17 10:41 General appearance: Present: cooperative, A&O X 1, pleasant, no acute distress, answers questions appropriately - Head Head exam: Present: atraumatic, normocephalic - Eye Eye exam: Present: PERRL, conjuntiva pink, sclera anicteric Pupils: Present: PERRL - Neck Neck exam general surgery: Present: supple, trachea midline. Absent: lymphadenopathy - Respiratory Respiratory exam: Present: CTAB. Absent: accessory muscle use, rales, rhonchi, wheezes - Cardiovascular Cardiovascular exam: Present: RRR, +S1, +S2. Absent: diastolic murmur, gallop, rubs, systolic murmur - GI/Abdominal GI/Abdominal exam: Present: normal bowel sounds, soft, no peritoneal signs. Absent: distended, tenderness - Extremities Exam Extremities exam: Present: warm, radial pulses palpable and symmetrical. Absent : calf tenderness, cyanotic, pedal edema - Neurological Exam Neurological exam: Present: no focal deficits. Absent: pronater drift, facial droop, speech deficit - Skin Skin exam: Present: dry, intact Internal Medicine: Result - Labs CBC & Chem 7: 01/02/17 03:36 01/04/17 05:17 Labs: BMP 01/04/17 05:17 Sodium 136 Potassium 4.0 Chloride 105 Carbon Dioxide 20 BUN 10 Creatinine 0.66 Glucose 139 H Calcium 9.0 Liver Function 01/04/17 Range/Units 05:17 Total Bilirubin 0.9 (0.2-1.2) mg/dL AST 21 (5-34) Units/L ALT < 6 (0-55) Units/L Alkaline Phosphatase 69 (38-126) Units/L Albumin 3.0 L (3.5-5.0) g/dL - VTE Documentation of Mechanical Device: Intermittent pneumatic compression device Consult Discharge Plan - Plan Instructions: How to Use and Care for Your PEG Tube (DC) Referrals: Rebekah Lobo CNP [Advanced Practice Nurse] - 01/22/17 9:20 am Rohit Deluna MD [Primary Care Provider] - (pt is from [facility])
[2017-01-04] MEDS: 0.9 % Sodium Chloride 1,000 ML IVC SCH (16:50)
[2017-01-04] MEDS: rOPINIRole 0.25 MG TABLET GTUBE SCH (21:44)
[2017-01-05 03:52] LABS: Magnesium 1.7 mg/dL (1.6-2.6); Phosphorous 3.2 mg/dL (2.3-4.7)
[2017-01-05 03:57] LABS: Alanine Aminotransferase 6 Units/L (0-55); Albumin 2.8 g/dL (3.5-5.0); Albumin/Globulin Ratio 0.9 (1.1-2.2); Alkaline Phosphatase 66 Units/L (38-126); Aspartate Amino Transferase 18 Units/L (5-34); BUN/Creatinine Ratio 12 (6-26); Bilirubin,Total 0.5 mg/dL (0.2-1.2); Blood Urea Nitrogen 8 mg/dL (7-20); Calcium 9.3 mg/dL (8.6-10.8); Carbon Dioxide 21 mEq/L (19-29); Chloride 105 mEq/L (98-109); Globulin 3.2 g/dL (2.4-3.5); Glucose 128 mg/dL (70-99); Osmolality,Calculated 284 (280-300); Potassium 3.3 mEq/L (3.5-4.5); Sodium 137 mEq/L (136-145); eGFR For African Americans > 60 (> 60); eGFR For Non-African Americans > 60 (> 60)
[2017-01-05] MEDS: Carbidopa/Levodopa 25/100 TABLET GTUBE SCH ×6 (05:24→23:40)
[2017-01-05] MEDS: *HR* Heparin 5,000 UNIT/ML VIAL SQ SCH ×2 (05:24→16:24)
[2017-01-05] MEDS ORDERED: Potassium Chloride 40 MEQ, Lidocaine 1% 2 ML in D5% in Water 500 ML IVPB ONE (08:19)
[2017-01-05] MEDS ORDERED: Potassium Chloride Elixir 20 MEQ/15 ML UDC GTUBE ONE (08:19)
[2017-01-05] MEDS: *HR* Morphine 2 MG/ML SYRINGE IVP PRN (09:40)
[2017-01-05] MEDS: Rivastigmine Tartrate (oral) 1.5 MG CAPSULE GTUBE SCH ×2 (09:42→19:55)
[2017-01-05] MEDS: Folic Acid 1 MG TABLET GTUBE SCH (09:43)
[2017-01-05] MEDS: ALPRAZolam 0.5 MG TABLET GTUBE SCH ×3 (09:43→19:55)
[2017-01-05] MEDS: Glycopyrrolate 1 MG TABLET GTUBE SCH ×2 (09:43→19:55)
[2017-01-05] MEDS: Gabapentin 300 MG CAPSULE GTUBE SCH ×2 (09:43→19:56)
[2017-01-05] MEDS: Piperacillin/Tazobactam 3.375 GM in D5% in Water 50 ML IVPB SCH ×2 (09:45→09:46)
--- NOTE | 2017-01-05 11:08 | Event Note ---
Date of Encounter: 01/05/17 Time of Encounter: 08:05 Patients midline incision healing well, no erythema or drainage. Open G-tube site C/D/I, tube feeds running advance to goal as patient tolerates continue to wash gtube site and midline incision with soap and water daily, cover with drain sponge and 4x4 gauze, keep abdominal binder on abdomen LOOSELY just to protect Gtube from accidental dislodgement or patient pulling at it. general surgery will sign off at this time will have pt follow up with SHARONDA Hernández in 2 weeks January 22 at 9:30 am
--- NOTE | 2017-01-05 15:02 | Internal Med Progress Note ---
Date of Encounter: 01/05/17 Time of Encounter: 15:00 - Assessment and plan (1) Sepsis Current Visit: Yes Status: Acute Qualifiers: Sepsis type: sepsis due to unspecified organism Qualified Code(s): A41.9 - Sepsis, unspecified organism (2) Aspiration pneumonia Current Visit: Yes Status: Suspected Qualifiers: Aspiration pneumonia type: unspecified Laterality: unspecified laterality Lung location: unspecified part of lung Qualified Code(s): J69.0 - Pneumonitis due to inhalation of food and vomit (3) Dysphagia Current Visit: Yes Status: Acute Qualifiers: Dysphagia type: unspecified Qualified Code(s): R13.10 - Dysphagia, unspecified (4) UTI (urinary tract infection) Current Visit: Yes Status: Ruled-out Qualifiers: Urinary tract infection type: site unspecified Hematuria presence: without hematuria Qualified Code(s): N39.0 - Urinary tract infection, site not specified (5) HTN (hypertension) Current Visit: Yes Status: Chronic Qualifiers: Hypertension type: essential hypertension Qualified Code(s): I10 - Essential (primary) hypertension (6) COPD (chronic obstructive pulmonary disease) Current Visit: Yes Status: Chronic Qualifiers: COPD type: unspecified COPD Qualified Code(s): J44.9 - Chronic obstructive pulmonary disease, unspecified (7) Parkinsons disease Current Visit: Yes Status: Chronic - Subjective Interval history: Admitted for UTI and pneumonia. Underlying Parkinson dementia and dysphagia. PEG tube placed .. Bowel sounds sluggish. She has been started on tube feeds and surprisingly tolerating them well with no residual as RN reported to me. However now patient is complaining that she did not have a bowel movement and feels a pressure. She has been prescribed bowel regimen. I think we should keep her until she has a bowel movement to make sure that she is ready to have tube feeds. Family members were present and they were consult about the concept of PEG tube and tube feeds and their questions were answered. Surgery has also seen the patient and noted PEG tube site is clean. - Constitutional Vitals: Temp Pulse Resp BP Pulse Ox 97.5 F L 97 16 147/77 96 01/05/17 10:32 01/05/17 10:32 01/05/17 10:32 01/05/17 10:32 01/05/17 10:32 General appearance: Present: cooperative, A&O X 1, pleasant, no acute distress, answers questions appropriately - Head Head exam: Present: atraumatic, normocephalic - Eye Eye exam: Present: PERRL, conjuntiva pink, sclera anicteric Pupils: Present: PERRL - Neck Neck exam general surgery: Present: supple, trachea midline. Absent: lymphadenopathy - Respiratory Respiratory exam: Present: CTAB. Absent: accessory muscle use, rales, rhonchi, wheezes - Cardiovascular Cardiovascular exam: Present: RRR, +S1, +S2. Absent: diastolic murmur, gallop, rubs, systolic murmur - GI/Abdominal GI/Abdominal exam: Present: normal bowel sounds, soft, no peritoneal signs. Absent: distended, tenderness Additional comments: Incision site is clean bowel tones sluggish - Extremities Exam Extremities exam: Present: warm, radial pulses palpable and symmetrical. Absent : calf tenderness, cyanotic, pedal edema - Neurological Exam Neurological exam: Present: no focal deficits. Absent: pronater drift, facial droop, speech deficit Additional comments: Pleasantly confused - Skin Skin exam: Present: dry, intact Internal Medicine: Result - Labs CBC & Chem 7: 01/02/17 03:36 01/05/17 03:27 Labs: BMP 01/05/17 03:27 Sodium 137 Potassium 3.3 L Chloride 105 Carbon Dioxide 21 BUN 8 Creatinine 0.65 Glucose 128 H Calcium 9.3 Liver Function 01/05/17 Range/Units 03:27 Total Bilirubin 0.5 (0.2-1.2) mg/dL AST 18 (5-34) Units/L ALT 6 (0-55) Units/L Alkaline Phosphatase 66 (38-126) Units/L Albumin 2.8 L (3.5-5.0) g/dL - VTE Documentation of Mechanical Device: Intermittent pneumatic compression device Consult Discharge Plan - Plan Instructions: How to Use and Care for Your PEG Tube (DC) Referrals: Rebekah Lobo CNP [Advanced Practice Nurse] - 01/22/17 9:20 am Rohit Deluna MD [Primary Care Provider] - (pt is from [facility])
[2017-01-05] MEDS: rOPINIRole 0.25 MG TABLET GTUBE SCH (19:56)
[2017-01-06] MEDS: *HR* Heparin 5,000 UNIT/ML VIAL SQ SCH ×2 (05:20→17:10)
[2017-01-06 07:00] LABS: Alanine Aminotransferase 13 Units/L (0-55); Albumin 2.4 g/dL (3.5-5.0); Albumin/Globulin Ratio 0.6 (1.1-2.2); Alkaline Phosphatase 64 Units/L (38-126); Aspartate Amino Transferase 15 Units/L (5-34); BUN/Creatinine Ratio 21 (6-26); Bilirubin,Total 0.4 mg/dL (0.2-1.2); Blood Urea Nitrogen 14 mg/dL (7-20); Calcium 9.3 mg/dL (8.6-10.8); Carbon Dioxide 24 mEq/L (19-29); Chloride 104 mEq/L (98-109); Globulin 3.7 g/dL (2.4-3.5); Glucose 153 mg/dL (70-99); Osmolality,Calculated 292 (280-300); Potassium 3.8 mEq/L (3.5-4.5); Sodium 139 mEq/L (136-145); Total Protein 6.1 g/dL (6.0-8.3); eGFR For African Americans > 60 (> 60); eGFR For Non-African Americans > 60 (> 60)
[2017-01-06] MEDS: Rivastigmine Tartrate (oral) 1.5 MG CAPSULE GTUBE SCH ×2 (08:48→19:33)
[2017-01-06] MEDS: Folic Acid 1 MG TABLET GTUBE SCH (08:48)
[2017-01-06] MEDS: ALPRAZolam 0.5 MG TABLET GTUBE SCH ×3 (08:48→19:33)
[2017-01-06] MEDS: Gabapentin 300 MG CAPSULE GTUBE SCH ×2 (08:49→19:33)
[2017-01-06] MEDS: Glycopyrrolate 1 MG TABLET GTUBE SCH ×2 (08:49→19:34)
--- NOTE | 2017-01-06 08:56 | Internal Med Progress Note ---
Date of Encounter: 01/06/17 Time of Encounter: 08:54 - Assessment and plan (1) Sepsis Current Visit: Yes Status: Acute Qualifiers: Sepsis type: sepsis due to unspecified organism Qualified Code(s): A41.9 - Sepsis, unspecified organism (2) Aspiration pneumonia Current Visit: Yes Status: Suspected Qualifiers: Aspiration pneumonia type: unspecified Laterality: unspecified laterality Lung location: unspecified part of lung Qualified Code(s): J69.0 - Pneumonitis due to inhalation of food and vomit (3) Dysphagia Current Visit: Yes Status: Acute Qualifiers: Dysphagia type: unspecified Qualified Code(s): R13.10 - Dysphagia, unspecified (4) UTI (urinary tract infection) Current Visit: Yes Status: Ruled-out Qualifiers: Urinary tract infection type: site unspecified Hematuria presence: without hematuria Qualified Code(s): N39.0 - Urinary tract infection, site not specified (5) HTN (hypertension) Current Visit: Yes Status: Chronic Qualifiers: Hypertension type: essential hypertension Qualified Code(s): I10 - Essential (primary) hypertension (6) COPD (chronic obstructive pulmonary disease) Current Visit: Yes Status: Chronic Qualifiers: COPD type: unspecified COPD Qualified Code(s): J44.9 - Chronic obstructive pulmonary disease, unspecified (7) Parkinsons disease Current Visit: Yes Status: Chronic - Subjective Interval history: Admitted for UTI and pneumonia. Underlying Parkinson dementia and dysphagia. PEG tube placed .. Bowel sounds sluggish. She has been started on tube feeds and surprisingly tolerating them well with no residual as RN reported to me. However now patient is complaining that she did not have a bowel movement and feels a pressure. She has been prescribed bowel regimen. I think we should keep her until she has a bowel movement to make sure that she is ready to have tube feeds. Family members were present and they were consult about the concept of PEG tube and tube feeds and their questions were answered. Surgery has also seen the patient and noted PEG tube site is clean. 01/06 patient potassium is 3.8 but she was given IV potassium yesterday. Need to check potassium and magnesium and phosphate as well as her BUN and creatinine to assess need of free water and electrolytes while she has been started on tube feeds. Recheck order all. Heart rate has been staying high and considering the electrolyte imbalance will get an EKG to make sure she is in sinus rhythm. She plans to be discharged to [facility] in a day or 2. - Constitutional Vitals: Temp Pulse Resp BP Pulse Ox 98.2 F 100 15 125/76 96 01/06/17 07:31 01/06/17 07:31 01/06/17 07:31 01/06/17 07:31 01/06/17 07:31 General appearance: Present: cooperative, A&O X 1, pleasant, no acute distress, answers questions appropriately - Head Head exam: Present: atraumatic, normocephalic - Eye Eye exam: Present: PERRL, conjuntiva pink, sclera anicteric Pupils: Present: PERRL - Neck Neck exam general surgery: Present: supple, trachea midline. Absent: lymphadenopathy - Respiratory Respiratory exam: Present: CTAB. Absent: accessory muscle use, rales, rhonchi, wheezes - Cardiovascular Cardiovascular exam: Present: RRR, +S1, +S2. Absent: diastolic murmur, gallop, rubs, systolic murmur - GI/Abdominal GI/Abdominal exam: Present: normal bowel sounds, soft, no peritoneal signs. Absent: distended, tenderness - Extremities Exam Extremities exam: Present: warm, radial pulses palpable and symmetrical. Absent : calf tenderness, cyanotic, pedal edema - Neurological Exam Neurological exam: Present: no focal deficits. Absent: pronater drift, facial droop, speech deficit - Skin Skin exam: Present: dry, intact Internal Medicine: Result - Labs CBC & Chem 7: 01/02/17 03:36 01/06/17 06:26 Labs: BMP 01/06/17 06:26 Sodium 139 Potassium 3.8 Chloride 104 Carbon Dioxide 24 BUN 14 Creatinine 0.67 Glucose 153 H Calcium 9.3 Liver Function 01/06/17 Range/Units 06:26 Total Bilirubin 0.4 (0.2-1.2) mg/dL AST 15 (5-34) Units/L ALT 13 (0-55) Units/L Alkaline Phosphatase 64 (38-126) Units/L Albumin 2.4 L (3.5-5.0) g/dL - VTE Documentation of Mechanical Device: Intermittent pneumatic compression device Consult Discharge Plan - Plan Instructions: How to Use and Care for Your PEG Tube (DC) Referrals: Rebekah Lobo JANITOR CARETAKER [Advanced Practice Nurse] - 01/22/17 9:20 am Mikie,Rohit Chacko MD [Primary Care Provider] - (pt is from [facility])
[2017-01-06] MEDS: Carbidopa/Levodopa 25/100 TABLET GTUBE SCH ×5 (09:04→23:30)
[2017-01-06] MEDS: rOPINIRole 0.25 MG TABLET GTUBE SCH (19:33)
[2017-01-07 04:49] LABS: Alanine Aminotransferase 9 Units/L (0-55); Albumin 2.5 g/dL (3.5-5.0); Albumin/Globulin Ratio 0.7 (1.1-2.2); Alkaline Phosphatase 65 Units/L (38-126); Aspartate Amino Transferase 16 Units/L (5-34); BUN/Creatinine Ratio 25 (6-26); Bilirubin,Total 0.3 mg/dL (0.2-1.2); Blood Urea Nitrogen 16 mg/dL (7-20); Calcium 9.5 mg/dL (8.6-10.8); Carbon Dioxide 28 mEq/L (19-29); Chloride 101 mEq/L (98-109); Globulin 3.6 g/dL (2.4-3.5); Glucose 143 mg/dL (70-99); Magnesium 1.7 mg/dL (1.6-2.6); Osmolality,Calculated 288 (280-300); Potassium 3.7 mEq/L (3.5-4.5); Sodium 137 mEq/L (136-145); Total Protein 6.1 g/dL (6.0-8.3); eGFR For African Americans > 60 (> 60); eGFR For Non-African Americans > 60 (> 60)
[2017-01-07] MEDS: *HR* Heparin 5,000 UNIT/ML VIAL SQ SCH ×2 (04:53→16:07)
--- NOTE | 2017-01-07 07:41 | Internal Med Progress Note ---
Date of Encounter: 01/07/17 Time of Encounter: 07:39 - Assessment and plan (1) Sepsis Current Visit: Yes Status: Acute Qualifiers: Sepsis type: sepsis due to unspecified organism Qualified Code(s): A41.9 - Sepsis, unspecified organism (2) Aspiration pneumonia Current Visit: Yes Status: Suspected Qualifiers: Aspiration pneumonia type: unspecified Laterality: unspecified laterality Lung location: unspecified part of lung Qualified Code(s): J69.0 - Pneumonitis due to inhalation of food and vomit (3) Dysphagia Current Visit: Yes Status: Acute Qualifiers: Dysphagia type: unspecified Qualified Code(s): R13.10 - Dysphagia, unspecified (4) UTI (urinary tract infection) Current Visit: Yes Status: Ruled-out Qualifiers: Urinary tract infection type: site unspecified Hematuria presence: without hematuria Qualified Code(s): N39.0 - Urinary tract infection, site not specified (5) HTN (hypertension) Current Visit: Yes Status: Chronic Qualifiers: Hypertension type: essential hypertension Qualified Code(s): I10 - Essential (primary) hypertension (6) COPD (chronic obstructive pulmonary disease) Current Visit: Yes Status: Chronic Qualifiers: COPD type: unspecified COPD Qualified Code(s): J44.9 - Chronic obstructive pulmonary disease, unspecified (7) Parkinsons disease Current Visit: Yes Status: Chronic - Subjective Interval history: Admitted for UTI and pneumonia. Underlying Parkinson dementia and dysphagia. PEG tube placed .. Bowel sounds sluggish. She has been started on tube feeds and surprisingly tolerating them well with no residual as RN reported to me. However now patient is complaining that she did not have a bowel movement and feels a pressure. She has been prescribed bowel regimen. I think we should keep her until she has a bowel movement to make sure that she is ready to have tube feeds. Family members were present and they were consult about the concept of PEG tube and tube feeds and their questions were answered. Surgery has also seen the patient and noted PEG tube site is clean. 01/06 patient potassium is 3.8 but she was given IV potassium yesterday. Need to check potassium and magnesium and phosphate as well as her BUN and creatinine to assess need of free water and electrolytes while she has been started on tube feeds. Recheck order all. Heart rate has been staying high and considering the electrolyte imbalance will get an EKG to make sure she is in sinus rhythm. She plans to be discharged to [facility] in a day or 2. 01/07 EKG obtained. Patient is in A. fib. Heart rate unacceptably high but blood pressure is also on the lower side. She takes some psych medicines and scopolamine patch and I think that is driving her heart rate up. I have increased metoprolol 50 twice a day but her heart rate is very borderline and I hope she can tolerate it. Watch on monitor for a day. Reduce lisinopril from lisinopril/hydrochlorothiazide to lisinopril 2.5 mg daily might help. Tolerating tube feeds. - Constitutional Vitals: Temp Pulse Resp BP Pulse Ox 97.8 F 101 20 121/74 97 01/07/17 07:00 01/07/17 07:00 01/07/17 07:00 01/07/17 07:00 01/07/17 07:00 General appearance: Present: cooperative, A&O X 1, pleasant, no acute distress, answers questions appropriately - Head Head exam: Present: atraumatic, normocephalic - Eye Eye exam: Present: PERRL, conjuntiva pink, sclera anicteric Pupils: Present: PERRL - Neck Neck exam general surgery: Present: supple, trachea midline. Absent: lymphadenopathy - Respiratory Respiratory exam: Present: CTAB. Absent: accessory muscle use, rales, rhonchi, wheezes - Cardiovascular Cardiovascular exam: Present: RRR, +S1, +S2. Absent: diastolic murmur, gallop, rubs, systolic murmur - GI/Abdominal GI/Abdominal exam: Present: normal bowel sounds, soft, no peritoneal signs. Absent: distended, tenderness - Extremities Exam Extremities exam: Present: warm, radial pulses palpable and symmetrical. Absent : calf tenderness, cyanotic, pedal edema - Neurological Exam Neurological exam: Present: no focal deficits. Absent: pronater drift, facial droop, speech deficit - Skin Skin exam: Present: dry, intact Internal Medicine: Result - Labs CBC & Chem 7: 01/02/17 03:36 01/07/17 03:53 Labs: BMP 01/07/17 03:53 Sodium 137 Potassium 3.7 Chloride 101 Carbon Dioxide 28 BUN 16 Creatinine 0.64 Glucose 143 H Calcium 9.5 Liver Function 01/07/17 Range/Units 03:53 Total Bilirubin 0.3 (0.2-1.2) mg/dL AST 16 (5-34) Units/L ALT 9 (0-55) Units/L Alkaline Phosphatase 65 (38-126) Units/L Albumin 2.5 L (3.5-5.0) g/dL - VTE Documentation of Mechanical Device: Intermittent pneumatic compression device Consult Discharge Plan - Plan Instructions: How to Use and Care for Your PEG Tube (DC) Referrals: Rebekah Lobo CNP [Advanced Practice Nurse] - 01/22/17 9:20 am Rohit Deluna MD [Primary Care Provider] - ([facility] is from [facility])
[2017-01-07] MEDS: Folic Acid 1 MG TABLET GTUBE SCH (08:32)
[2017-01-07] MEDS: ALPRAZolam 0.5 MG TABLET GTUBE SCH ×3 (08:32→19:49)
[2017-01-07] MEDS: Rivastigmine Tartrate (oral) 1.5 MG CAPSULE GTUBE SCH ×2 (08:33→19:49)
[2017-01-07] MEDS: Gabapentin 300 MG CAPSULE GTUBE SCH ×2 (08:33→19:49)
[2017-01-07] MEDS: Glycopyrrolate 1 MG TABLET GTUBE SCH ×2 (08:33→19:49)
[2017-01-07] MEDS: Scopolamine Patch 1.5 MG PATCH.TD72 TD SCH (08:33)
[2017-01-07] MEDS: Carbidopa/Levodopa 25/100 TABLET GTUBE SCH ×5 (09:41→23:51)
[2017-01-07] MEDS: rOPINIRole 0.25 MG TABLET GTUBE SCH (19:49)
[2017-01-08 03:56] LABS: Alanine Aminotransferase 10 Units/L (0-55); Albumin 2.4 g/dL (3.5-5.0); Albumin/Globulin Ratio 0.6 (1.1-2.2); Alkaline Phosphatase 69 Units/L (38-126); Aspartate Amino Transferase 17 Units/L (5-34); BUN/Creatinine Ratio 32 (6-26); Blood Urea Nitrogen 21 mg/dL (7-20); Carbon Dioxide 26 mEq/L (19-29); Chloride 103 mEq/L (98-109); Globulin 3.8 g/dL (2.4-3.5); Glucose 147 mg/dL (70-99); Magnesium 1.7 mg/dL (1.6-2.6); Osmolality,Calculated 292 (280-300); Phosphorous 3.4 mg/dL (2.3-4.7); Potassium 3.6 mEq/L (3.5-4.5); Sodium 138 mEq/L (136-145); Total Protein 6.2 g/dL (6.0-8.3); eGFR For African Americans > 60 (> 60); eGFR For Non-African Americans > 60 (> 60)
[2017-01-08 04:09] LABS: Bilirubin,Total < 0.2 mg/dL (0.2-1.2)
[2017-01-08] MEDS: *HR* Heparin 5,000 UNIT/ML VIAL SQ SCH (04:54)
--- NOTE | 2017-01-08 08:16 | Discharge Summary ---
Date of Encounter: 01/08/17 Time of Encounter: 08:08 - Discharge Diagnosis (1) Sepsis Priority: Primary Status: Acute Qualifiers: Sepsis type: sepsis due to unspecified organism Qualified Code(s): A41.9 - Sepsis, unspecified organism (2) Aspiration pneumonia Priority: Primary Status: Suspected Qualifiers: Aspiration pneumonia type: unspecified Laterality: unspecified laterality Lung location: unspecified part of lung Qualified Code(s): J69.0 - Pneumonitis due to inhalation of food and vomit (3) Dysphagia Priority: Secondary Status: Acute Qualifiers: Dysphagia type: unspecified Qualified Code(s): R13.10 - Dysphagia, unspecified (4) UTI (urinary tract infection) Priority: Primary Status: Ruled-out Qualifiers: Urinary tract infection type: site unspecified Hematuria presence: without hematuria Qualified Code(s): N39.0 - Urinary tract infection, site not specified (5) HTN (hypertension) Priority: Secondary Status: Chronic Qualifiers: Hypertension type: essential hypertension Qualified Code(s): I10 - Essential (primary) hypertension (6) COPD (chronic obstructive pulmonary disease) Priority: Secondary Status: Chronic Qualifiers: COPD type: unspecified COPD Qualified Code(s): J44.9 - Chronic obstructive pulmonary disease, unspecified (7) Parkinsons disease Priority: Secondary Status: Chronic - Discharge Medications Home Medications: Aspirin 325 mg PO DAILY 03/23/15 [History] Folic Acid 0.4 mg PO DAILY 03/23/15 [History] Metoprolol [Lopressor] 25 mg PO BID 03/23/15 [History] Nitroglycerin [Nitrostat] 0.4 mg SL Q5M PRN 03/23/15 [History] Acetaminophen [Tylenol] 1,000 mg PO HS 10/12/16 [History] Albuterol Sulfate [Proair Hfa] 2 puff IH Q4H PRN 10/12/16 [History] Beclomethasone Diprop 40mcg [QVAR 40 mcg] 2 puff IH BID 10/12/16 [History] Carbidopa/Levodopa 25/100 [Sinemet 25/100] 1 each PO 5XD 10/12/16 [History] Cyanocobalamin (Vitamin B-12) [Vitamin B12] 1,000 mcg PO DAILY 10/12/16 [History ] Dicyclomine [Bentyl] 10 mg PO BID 10/12/16 [History] Donepezil [Aricept] 5 mg PO HS 10/12/16 [History] Ergocalciferol (VITAMIN D2) [Vitamin D2] 50,000 unit PO SA 10/12/16 [History] Fexofenadine HCl [Allergy Relief] 180 mg PO DAILY 10/12/16 [History] Gabapentin [Neurontin] 300 mg PO QAM 10/12/16 [History] Gabapentin [Neurontin] 600 mg PO HS 10/12/16 [History] Glycopyrrolate [Robinul] 0.5 mg PO BID 10/12/16 [History] Magnesium Hydroxide [Milk of Magnesia] 2,400 mg PO DAILY PRN 10/12/16 [History] Multivit,Th Iron,Other Min [Therems-M] 1 each PO DAILY 10/12/16 [History] Olopatadine HCl [Patanol] 2 drop BOTH EYES BID 10/12/16 [History] Polyethylene Glycol 3350 [MiraLAX] 17 gm PO DAILY PRN 10/12/16 [History] Rivastigmine Tartrate (oral) [Exelon] 3 mg PO BID 10/12/16 [History] Scopolamine Patch [Transderm-Scop] 1.5 mg TD Q72H 10/12/16 [History] Sennosides/Docusate Sodium [Senna-S Tablet] 2 each PO BID 10/12/16 [History] Ropinirole HCl [Requip] 0.25 mg PO HS 12/28/16 [History] Sertraline [Zoloft] 50 mg PO DAILY 12/28/16 [History] Acetaminophen [Tylenol Susp] 650 mg GTUBE Q6HR PRN ud.liq 01/08/17 [Rx] Albuterol Neb [Proventil Neb] 2.5 mg IH BID #0 01/08/17 [Rx] Amoxicillin/Clavulanate [Augmentin] 875 mg PO BIDWM #6 tablet 01/08/17 [Rx] Folic Acid 1 mg GTUBE DAILY tablet 01/08/17 [Rx] Lansoprazole [Prevacid] 30 mg GTUBE QAM capsule. 01/08/17 [Rx] Lisinopril [Zestril] 2.5 mg GTUBE DAILY tablet 01/08/17 [Rx] Metoprolol [Lopressor] 75 mg GTUBE BID #60 tablet 01/08/17 [Rx] Allergies/Adverse Reactions: 3 Allergy/AdvReac Type Severity Reaction Status Date / Time meperidine [From Demerol] Allergy Rash Verified 12/28/16 11:14 Procedures/tests Complete & Pending: Procedures Performed prior 72 hours Category Date Time Status EKG [ECG 12 lead ECG] [ECG] Routine Y 01/06/17 08:53 Ordered Date of admission: 12/31/16 13:41 Primary care physician: Rohit Deluna MD Consults: 01/01/17 09:57 Consult to Psychiatry [CONS] Routine Consulting Provider: Psychiatry Melony Reason for Consult: competency assessment Time Notified: 09:58 Call Completed: Yes Discharging clinician: Keshia Lr Anticipated date of discharge: 01/08/17 - Patient Status Disposition: Transfer SNF Condition: Fair Overall status at discharge: patient is progressing back to baseline - Discharge Instructions Instructions: How to Use and Care for Your PEG Tube (DC) Follow Up With: Rebekah Lobo CNP [Advanced Practice Nurse] - 01/22/17 9:20 am Rohit Deluna MD [Primary Care Provider] - (pt is from [facility]) - Diet and Activity Activity: as per physical therapy Diet: advance to your usual diet, low fat, low cholesterol, low salt diet (on Tube Feed 60 cc / hr) Hospital course: Ms. Real is a 71 year old female Admitted for UTI and pneumonia. Underlying Parkinson dementia and dysphagia. Afebrile white count normal clinically improved. PEG tube placed .EKG obtained. Patient is in chronic A. fib. Heart rate close to 100 due to some psych medicines and scopolamine patch and I think that is driving her heart rate up. I have increased metoprolol 75 twice a day and Reduce lisinopril from lisinopril/hydrochlorothiazide to lisinopril 2.5 mg daily. Tolerating tube feeds. - Time Spent with Patient Total time spent providing and/or coordinating discharge services: Greater than 30 minutes - Constitutional Vitals: Temp Pulse Resp BP Pulse Ox 97.8 F 97 17 125/75 97 01/08/17 06:36 01/08/17 06:36 01/08/17 06:36 01/08/17 06:36 01/08/17 06:36 General appearance: Present: cooperative, A&O X 1, pleasant, no acute distress, answers questions appropriately - Head Head exam: Present: atraumatic, normocephalic - Eye Eye exam: Present: PERRL, conjuntiva pink, sclera anicteric Pupils: Present: PERRL - Neck Neck exam general surgery: Present: supple, trachea midline. Absent: lymphadenopathy - Respiratory Respiratory exam: Present: CTAB. Absent: accessory muscle use, rales, rhonchi, wheezes - Cardiovascular Cardiovascular exam: Present: irregular rhythm, +S1, +S2. Absent: diastolic murmur, gallop, rubs, systolic murmur - GI/Abdominal GI/Abdominal exam: Present: normal bowel sounds, soft, no peritoneal signs. Absent: distended, tenderness - Extremities Exam Extremities exam: Present: warm, radial pulses palpable and symmetrical. Absent : calf tenderness, cyanotic, pedal edema - Neurological Exam Neurological exam: Present: no focal deficits. Absent: pronater drift, facial droop, speech deficit - Skin Skin exam: Present: dry, intact - VTE Documentation of Mechanical Device: Intermittent pneumatic compression device
--- NOTE | 2017-01-08 08:21 | Physician Discharge Referral ---
ExtendedCare Referral Info Transfer To: SNF Provider in Charge: lui Provider in Charge after Transfer: PCP Institutional Level of Care: Skilled - Diagnosis (1) Sepsis Status: Acute (2) Aspiration pneumonia Status: Suspected (3) Dysphagia Status: Acute (4) UTI (urinary tract infection) Status: Ruled-out (5) HTN (hypertension) Status: Chronic (6) COPD (chronic obstructive pulmonary disease) Status: Chronic (7) Parkinsons disease Status: Chronic - Transfer Medications Home Medications: Aspirin 325 mg PO DAILY 03/23/15 [History] Folic Acid 0.4 mg PO DAILY 03/23/15 [History] Metoprolol [Lopressor] 25 mg PO BID 03/23/15 [History] Nitroglycerin [Nitrostat] 0.4 mg SL Q5M PRN 03/23/15 [History] Acetaminophen [Tylenol] 1,000 mg PO HS 10/12/16 [History] Albuterol Sulfate [Proair Hfa] 2 puff IH Q4H PRN 10/12/16 [History] Beclomethasone Diprop 40mcg [QVAR 40 mcg] 2 puff IH BID 10/12/16 [History] Carbidopa/Levodopa 25/100 [Sinemet 25/100] 1 each PO 5XD 10/12/16 [History] Cyanocobalamin (Vitamin B-12) [Vitamin B12] 1,000 mcg PO DAILY 10/12/16 [History ] Dicyclomine [Bentyl] 10 mg PO BID 10/12/16 [History] Donepezil [Aricept] 5 mg PO HS 10/12/16 [History] Ergocalciferol (VITAMIN D2) [Vitamin D2] 50,000 unit PO SA 10/12/16 [History] Fexofenadine HCl [Allergy Relief] 180 mg PO DAILY 10/12/16 [History] Gabapentin [Neurontin] 300 mg PO QAM 10/12/16 [History] Gabapentin [Neurontin] 600 mg PO HS 10/12/16 [History] Glycopyrrolate [Robinul] 0.5 mg PO BID 10/12/16 [History] Magnesium Hydroxide [Milk of Magnesia] 2,400 mg PO DAILY PRN 10/12/16 [History] Multivit,Th Iron,Other Min [Therems-M] 1 each PO DAILY 10/12/16 [History] Olopatadine HCl [Patanol] 2 drop BOTH EYES BID 10/12/16 [History] Polyethylene Glycol 3350 [MiraLAX] 17 gm PO DAILY PRN 10/12/16 [History] Rivastigmine Tartrate (oral) [Exelon] 3 mg PO BID 10/12/16 [History] Scopolamine Patch [Transderm-Scop] 1.5 mg TD Q72H 10/12/16 [History] Sennosides/Docusate Sodium [Senna-S Tablet] 2 each PO BID 10/12/16 [History] Ropinirole HCl [Requip] 0.25 mg PO HS 12/28/16 [History] Sertraline [Zoloft] 50 mg PO DAILY 12/28/16 [History] Acetaminophen [Tylenol Susp] 650 mg GTUBE Q6HR PRN ud.liq 01/08/17 [Rx] Albuterol Neb [Proventil Neb] 2.5 mg IH BID #0 01/08/17 [Rx] Amoxicillin/Clavulanate [Augmentin] 875 mg PO BIDWM #6 tablet 01/08/17 [Rx] Folic Acid 1 mg GTUBE DAILY tablet 01/08/17 [Rx] Lansoprazole [Prevacid] 30 mg GTUBE QAM capsule. 01/08/17 [Rx] Lisinopril [Zestril] 2.5 mg GTUBE DAILY tablet 01/08/17 [Rx] Metoprolol [Lopressor] 75 mg GTUBE BID #60 tablet 01/08/17 [Rx] Allergies/Adverse Reactions: 3 Allergy/AdvReac Type Severity Reaction Status Date / Time meperidine [From Demerol] Allergy Rash Verified 12/28/16 11:14 - Respiratory Orders Oxygen / L per min Smoking Cessation: Smoking cessation has been advised. For more information, call the [place] Tobacco Quit Line at 5-180-TFFO-NOW. - Rehabiliation Orders Rehab Orders: ROM Exercises, Evaluation for Physical Therapy, Evaluation for Occupational Therapy - Diet Orders House Supplement per Dietary: Tube feet 60 mL an hour CERTIFICATION: I certify that the transfer of the above named patient to an Extended Care Facility is necessary for the continuing treatment of the diagnosis listed. The above information is true and accurate reflection of patient's current condition. Confidential - Redisclosure prohibited without a patient's written consent.
[2017-01-08] MEDS: Glycopyrrolate 1 MG TABLET GTUBE SCH (10:18)
[2017-01-08] MEDS: ALPRAZolam 0.5 MG TABLET GTUBE SCH (10:18)
[2017-01-08] MEDS: Gabapentin 300 MG CAPSULE GTUBE SCH (10:19)
[2017-01-08] MEDS: Folic Acid 1 MG TABLET GTUBE SCH (10:19)
[2017-01-08] MEDS: Rivastigmine Tartrate (oral) 1.5 MG CAPSULE GTUBE SCH (10:21)
[2017-01-08] MEDS: Carbidopa/Levodopa 25/100 TABLET GTUBE SCH (10:54)
[2017-01-08 10:55] VITALS: BP 137/79
== END 2017-01-08 13:00 | DRG 853 ==
LOC: EMEROO 11:11 → 2ANU 11:11
PROVIDERS: ADMIT Hospitalist; ATTEND Internal Medicine

== ENCOUNTER 2017-06-07 12:21 | Inpatient (IN) ==
[2017-06-07] MEDS ORDERED: 0.9 % Sodium Chloride 1,000 ML IVC ONE (12:46)
--- NOTE | 2017-06-07 12:54 | Emergency Department Note ---
Disposition Clinical Impression: Altered mental status Qualifiers: Altered mental status type: somnolence Qualified Code(s): R40.0 - Somnolence UTI (urinary tract infection) Qualifiers: Urinary tract infection type: site unspecified Hematuria presence: with hematuria Qualified Code(s): N39.0 - Urinary tract infection, site not specified Disposition: Admitted As Inpatient Condition: Fair Time of Disposition: 14:52 Altered Mental Status HPI - General Chief Complaint: ED Altered Mental Status Stated Complaint: AMS Source: patient, EMS, other Limitations: altered mental status Nursing Notes Reviewed: Yes Vital Signs Reviewed: Yes - History of Present Illness HPI Narrative: 71-year-old female brought in from [facility]. For sudden on responsiveness 1 hour ago. Patient is unable to speak currently. Patient's family is at bedside, none of which are the POA (patient's brother). Patient's daughter stated patient is full code. Patient has a history of dementia and Parkinson's disease. He stated patient is able to ambulate on her own. Patient's daughter stated that she saw patient last around 5 days ago. They do admit the patient has frequent UTIs with the last one being one month ago. Usual symptoms when she has a UTI are delirium, with hallucinations. Patient has no prior history of CVA, no prior cardiac history, no prior voluntary history, no prior renal history. Patient does have a neural stimulator implanted with with battery pack some bilateral chest early - Related Data Home Medications Medication Instructions Recorded Confirmed Metoprolol [Lopressor] 25 mg PO BID 03/23/15 06/07/17 Nitroglycerin [Nitrostat] 0.4 mg SL Q5M PRN 03/23/15 06/07/17 Acetaminophen [Tylenol] 1,000 mg PO HS 10/12/16 06/07/17 Albuterol Sulfate [Proair Hfa] 2 puff IH Q4H PRN 10/12/16 06/07/17 Beclomethasone Diprop 40mcg [QVAR 2 puff IH BID 10/12/16 06/07/17 40 mcg] Carbidopa/Levodopa 25/100 [Sinemet 1.5 tab PO 5XD 10/12/16 06/07/17 25/100] Cyanocobalamin (Vitamin B-12) 1,000 mcg PO DAILY 10/12/16 06/07/17 [Vitamin B12] Dicyclomine [Bentyl] 10 mg PO BID 10/12/16 06/07/17 Donepezil [Aricept] 5 mg PO HS 10/12/16 06/07/17 Ergocalciferol (VITAMIN D2) 50,000 unit PO SA 10/12/16 06/07/17 [Vitamin D2] Fexofenadine HCl [Allergy Relief] 180 mg PO DAILY 10/12/16 06/07/17 Gabapentin [Neurontin] 300 mg PO QAM 10/12/16 06/07/17 Gabapentin [Neurontin] 600 mg PO HS 10/12/16 06/07/17 Glycopyrrolate [Robinul] 0.5 mg PO BID 10/12/16 06/07/17 Magnesium Hydroxide [Milk of 2,400 mg PO DAILY PRN 10/12/16 06/07/17 Magnesia] Multivit,Th Iron,Other Min 1 each PO DAILY 10/12/16 06/07/17 [Therems-M] Olopatadine HCl [Patanol] 2 drop BOTH EYES BID 10/12/16 06/07/17 Polyethylene Glycol 3350 [MiraLAX] 17 gm PO DAILY PRN 10/12/16 06/07/17 Scopolamine Patch [Transderm-Scop] 1.5 mg TD Q72H 10/12/16 06/07/17 Sennosides/Docusate Sodium 2 each PO BID 10/12/16 06/07/17 [Senna-S Tablet] Ropinirole HCl [Requip] 0.25 mg PO HS 12/28/16 06/07/17 Sertraline [Zoloft] 50 mg PO DAILY 12/28/16 06/07/17 ALPRAZolam [Xanax 0.5 MG Tablet] 0.5 mg PO TID PRN 06/07/17 06/07/17 Atropine Sulfate in 0.9% NaCl 2 drop PO Q2H PRN 06/07/17 06/07/17 [Atropine 0.01%-Ns Eye Drops] Docusate Sodium [Dok] 100 mg PO BID 06/07/17 06/07/17 Furosemide [Lasix] 40 mg PO DAILY 06/07/17 06/07/17 HYDROcodone/Acet 5/325 mg [[place] 1 tab PO Q8H PRN 06/07/17 06/07/17 5-325 mg] Omeprazole [PriLOSEC] 20 mg PO DAILY 06/07/17 06/07/17 Potassium Chloride 20 meq PO DAILY 06/07/17 06/07/17 Previous Rx's Medication Instructions Recorded Acetaminophen [Tylenol Susp] 650 mg GTUBE Q6HR PRN ud.liq 01/08/17 Albuterol Neb [Proventil Neb] 2.5 mg IH BID #0 01/08/17 Folic Acid 1 mg GTUBE DAILY tablet 01/08/17 Lisinopril [Zestril] 2.5 mg GTUBE DAILY tablet 01/08/17 Allergies Allergy/AdvReac Type Severity Reaction Status Date / Time meperidine [From Demerol] Allergy Rash Verified 06/07/17 12:28 All systems ED: reviewed and negative except as stated. Review of Systems: As Per HPI Limitations: ROS unobtainable due to patients medical condition Past Medical History - Past Medical History Attestation: Yes The following information was validated with the patient. 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: Reports: no ADHESIVE BANDAGE MACHINE OPERATOR history - Social History Smoking Status: Former smoker Smokeless Tobacco Status: No Alcohol use: Reports: none Drug use: Reports: none Physical Exam Vital Signs Temperature 98 F 06/07/17 12:30 Pulse Rate 90 06/07/17 12:30 Respiratory Rate 20 06/07/17 12:30 Blood Pressure 175/89 06/07/17 12:30 O2 Sat by Pulse Oximetry 94 06/07/17 12:30 Temperature 98 F 06/07/17 12:30 Pulse Rate 91 06/07/17 12:40 Respiratory Rate 20 06/07/17 12:40 Blood Pressure 173/84 06/07/17 12:40 O2 Sat by Pulse Oximetry 96 06/07/17 12:40 Oxygen Delivery Oxygen Delivery Room Air CONSTITUTIONAL: When I first walked into the room patient was laying in bed with eyes closed, patient would not respond when I called her name. Patient did not respond when her family called her name. Could not identify any visible morales or bruises. HEAD: Normocephalic; atraumatic EYES: PERRL, patient is no scleral icterus NOSE: The nose is normal in appearance without rhinorrhea NECK: No JVD or distended neck veins RESP: Normal chest excursion with respiration; breath sounds clear and equal bilaterally; no wheezes, rhonchi, or rales CARD: Regular rhythm, without murmurs, rub or gallop ABD: Non-distended; non-tender, soft, without rigidity, rebound or guarding,no pulsatile mass CHEST: No pain with palpation, patient has battery packs placed in both chest early right left for her neurostimulator SKIN: Normal for age and race; warm and dry without diaphoresis ; no apparent lesions EXTREMITIES: Pulses are 2 plus and equal times 4 extremities, no peripheral edema or calf muscle pain NEUROLOGICAL: Patient is alert but unable to establish orientation because patient is unable to speak. Patient does follow direction and will squeeze my hands and pull me into her and push away. Patient has equal strength bilaterally. Patient has some difficulty with extraocular motion but is able to look at a family on her left and interactive. Smiles appropriately. Patient is able to look towards my direction and nod in agreement. Patient is unable to perform other functions of neurologic exam. Grossly no focal unilateral deficits - General Limitations: altered mental status Course - Reevaluation(s) Reevaluation #1: Patient is doing well. Patient's mentation is improving. She is interacting with her family at the bedside and smiling. She looks a lot more alert Time: 14:11 Reevaluation #2: Patient has a UTI and being started on Rocephin 2 g IV. Patient will be admitted to the hospital for further evaluation. Patient and family have been notified and understand and agree to treatment plan. Time: 14:51 Reevaluation #3: Patient did not receive her Vázquez catheter as ordered. Patient resulted in urinating herself area family is very upset. I spoke to family and calmed them down. Timothy the charge nurse was notified and is rectifying the problem Time: 15:51 - Consultations Consultation #1: Patient was accepted for admission by Dr. Jacobs to a telemetry bed. Time: 14:51 Vital Signs Temperature 98 F 06/07/17 12:30 Pulse Rate 90 06/07/17 12:30 Respiratory Rate 20 06/07/17 12:30 Blood Pressure 175/89 06/07/17 12:30 O2 Sat by Pulse Oximetry 94 06/07/17 12:30 Temperature 98 F 06/07/17 12:30 Pulse Rate 93 06/07/17 15:00 Respiratory Rate 20 06/07/17 15:53 Blood Pressure 140/75 06/07/17 15:53 O2 Sat by Pulse Oximetry 96 06/07/17 15:00 Oxygen Delivery Oxygen Delivery Room Air Altered Mental Status - MDM Narrative Medical decision making narrative: 71-year-old female brought in from a [facility] for acute altered mental status. Patient has no prior cardiac history, no prior pulmonary history. Patient has no prior CVA history. Patient does have dementia and Parkinson's disease. Family stated the patient has been outside in the past from urinary tract infection. Last one was a month ago. Patient received a head CT to assess for any acute intracranial abnormalities, and labs to identify any source that may lead us to her acute altered mental status. Patient's neurologic exam did not identify any lateralizing deficits. Patient is lower 70s are equally week. Head CT was negative for any intracranial, patient abnormalities. Patient is a negative troponin and otherwise her labs look clinically unremarkable. Patient's urine however shows a bad UTI which is most likely the source of her confusion and delirium. Patient started on 2 g of IV Rocephin and family has been informed that patient will need to be admitted for further treatment and evaluation. Patient and family agrees. Patient is asked the improved greatly and cannot answer my questions with nods and soft [place] as much as possible. Patient does not normally have the ability to speak loudly. EKG was negative for any acute ST elevations or depressions and a leads for signs of ischemia. Chest x-ray per radiology showed no acute cardiopulmonary abdomen allergies. Eyes negative x-ray. No acute findings for pulmonary infection, no thorax, pulmonary edema. Patient's neurostimulator battery packs visible bilateral chest wall Patient was accepted for admission by Dr. Jacobs to a telemetry bed. - Lab Data Lab results reviewed: Yes I reviewed the patient's lab results. Lab results narrative: Short CBC 06/07/17 Range/Units 12:57 WBC 9.3 (4.3-11.1) K/mcL Hgb 13.8 (11.5-15.4) g/dL Hct 40.6 (35.3-44.9) % Plt Count 273 (140-400) K/mcL Neutrophils # 7.0 (1.6-8.9) K/mcL BMP 06/07/17 Range/Units 12:57 Sodium 141 (136-145) mEq/L Potassium 3.5 (3.5-5.1) mEq/L Chloride 105 (98-107) mEq/L Carbon Dioxide 22 L (23-29) mEq/L BUN 15 (8-23) mg/dL Creatinine 0.60 (0.60-1.20) mg/dL Glucose 118 H (70-105) mg/dL Calcium 9.4 (8.6-10.3) mg/dL Cardiac Enzymes 06/07/17 Range/Units 12:57 Troponin I < 0.03 (< 0.04) ng/mL Liver Function 06/07/17 Range/Units 12:57 Total Bilirubin 0.4 (0.3-1.0) mg/dL Direct Bilirubin 0.2 (0.0-0.2) mg/dL AST 14 (13-39) Units/L ALT 25 (7-52) Units/L Alkaline Phosphatase 77 (34-104) Units/L Albumin 4.0 (3.5-5.7) g/dL Urine 06/07/17 Range/Units 13:05 Urine Color Yellow (Yellow) Urine Clarity Turbid A (Clear) Urine pH 7.0 (5.0-8.0) pH Units Ur Specific [place] 1.019 (1.010-1.025) Urine Protein >=300 H (Neg-Trace) mg/dL Urine Glucose (UA) Normal (Normal) mg/dL Result diagrams: 06/07/17 12:57 06/07/17 12:57 Lab Results 06/07/17 06/07/17 06/07/17 Range/Units 12:57 12:57 12:57 WBC 9.3 (4.3-11.1) K/mcL RBC 4.76 (3.82-4.97) M/mcL Hgb 13.8 (11.5-15.4) g/dL Hct 40.6 (35.3-44.9) % MCV 85.3 (83.0-100.0) fL MCH 29.0 (28.0-33.3) pg MCHC 34.0 (31.6-35.5) g/dL RDW 12.7 (11.5-14.5) % Plt Count 273 (140-400) K/mcL MPV 9.9 (9.4-12.4) fL Immature Gran % 0.3 (0-4) % Seg Neutrophils % 75.2 % Lymphocytes % 15.6 % Monocytes % 8.2 % Eosinophils % 0.4 % Basophils % 0.3 % Neutrophils # 7.0 (1.6-8.9) K/mcL Lymphocytes # 1.5 (0.6-4.6) K/mcL Monocytes # 0.8 (0.0-1.3) K/mcL Eosinophils # 0.0 (0.0-0.6) K/mcL Basophils # 0.0 (0.0-0.2) K/mcL PT 12.0 (9.4-12.1) Seconds INR 1.1 APTT 29.8 (26.0-36.0) Seconds Sodium 141 (136-145) mEq/L Potassium 3.5 (3.5-5.1) mEq/L Chloride 105 (98-107) mEq/L Carbon Dioxide 22 L (23-29) mEq/L BUN 15 (8-23) mg/dL Creatinine 0.60 (0.60-1.20) mg/dL Est GFR ( Amer) > 60 (> 60) Est GFR (Non-Af Amer) > 60 (> 60) BUN/Creatinine Ratio 25 (6-26) Glucose 118 H (70-105) mg/dL Calculated Osmolality 294 (280-300) Calcium 9.4 (8.6-10.3) mg/dL Total Bilirubin 0.4 (0.3-1.0) mg/dL Direct Bilirubin 0.2 (0.0-0.2) mg/dL Indirect Bilirubin 0.2 (0.0-1.2) mg/dL AST 14 (13-39) Units/L ALT 25 (7-52) Units/L Alkaline Phosphatase 77 (34-104) Units/L Ammonia (16-53) mcmol/L Creatine Kinase 24 L (30-223) Units/L Troponin I < 0.03 (< 0.04) ng/mL Serum Total Protein 6.9 (6.4-8.9) g/dL Albumin 4.0 (3.5-5.7) g/dL Globulin 2.9 (2.4-3.5) g/dL Albumin/Globulin Ratio 1.4 (1.1-2.2) Ur Specimen Adequacy Urine Color (Yellow) Urine Clarity (Clear) Urine pH (5.0-8.0) pH Units Ur Specific [place] (1.010-1.025) Urine Protein (Neg-Trace) mg/dL Urine Glucose (UA) (Normal) mg/dL Urine Ketones (Negative) mg/dL Urine Blood (Negative) Urine Nitrite (Negative) Urine Bilirubin (Negative) Urine Urobilinogen (Normal) mg/dL Ur Leukocyte Esterase (Negative) Urine Microscopic RBC (0-3) per hpf Urine Microscopic WBC (0-3) per hpf Ur Squamous Epith Cells (None-Few) per lpf Urine Bacteria (None-Few) per hpf Hyaline Casts (None-Few) per lpf Ur Culture Indicated? (NO) Urine Opiates Screen (Ndscsg=343) ng/mL Ur Barbiturates Screen (Voqsrs=090) ng/mL Ur Phencyclidine Scrn (Cutoff=25) ng/mL Ur Amphetamines Screen (Gvawub=0390) ng/mL U Benzodiazepines Scrn (Ajskgy=796) ng/mL Urine Cocaine Screen (Cutoff= 300) ng/mL U Marijuana (THC) Screen (Cutoff = 50) ng/mL Ethyl Alcohol < 10 (Less than 10) mg/dL 06/07/17 06/07/17 06/07/17 Range/Units 12:57 13:05 13:05 WBC (4.3-11.1) K/mcL RBC (3.82-4.97) M/mcL Hgb (11.5-15.4) g/dL Hct (35.3-44.9) % MCV (83.0-100.0) fL MCH (28.0-33.3) pg MCHC (31.6-35.5) g/dL RDW (11.5-14.5) % Plt Count (140-400) K/mcL MPV (9.4-12.4) fL Immature Gran % (0-4) % Seg Neutrophils % % Lymphocytes % % Monocytes % % Eosinophils % % Basophils % % Neutrophils # (1.6-8.9) K/mcL Lymphocytes # (0.6-4.6) K/mcL Monocytes # (0.0-1.3) K/mcL Eosinophils # (0.0-0.6) K/mcL Basophils # (0.0-0.2) K/mcL PT (9.4-12.1) Seconds INR APTT (26.0-36.0) Seconds Sodium (136-145) mEq/L Potassium (3.5-5.1) mEq/L Chloride (98-107) mEq/L Carbon Dioxide (23-29) mEq/L BUN (8-23) mg/dL Creatinine (0.60-1.20) mg/dL Est GFR ( Amer) (> 60) Est GFR (Non-Af Amer) (> 60) BUN/Creatinine Ratio (6-26) Glucose (70-105) mg/dL Calculated Osmolality (280-300) Calcium (8.6-10.3) mg/dL Total Bilirubin (0.3-1.0) mg/dL Direct Bilirubin (0.0-0.2) mg/dL Indirect Bilirubin (0.0-1.2) mg/dL AST (13-39) Units/L ALT (7-52) Units/L Alkaline Phosphatase (34-104) Units/L Ammonia 30 (16-53) mcmol/L Creatine Kinase (30-223) Units/L Troponin I (< 0.04) ng/mL Serum Total Protein (6.4-8.9) g/dL Albumin (3.5-5.7) g/dL Globulin (2.4-3.5) g/dL Albumin/Globulin Ratio (1.1-2.2) Ur Specimen Adequacy See below A Urine Color Yellow (Yellow) Urine Clarity Turbid A (Clear) Urine pH 7.0 (5.0-8.0) pH Units Ur Specific [place] 1.019 (1.010-1.025) Urine Protein >=300 H (Neg-Trace) mg/dL Urine Glucose (UA) Normal (Normal) mg/dL Urine Ketones Negative (Negative) mg/dL Urine Blood Trace H (Negative) Urine Nitrite Negative (Negative) Urine Bilirubin Negative (Negative) Urine Urobilinogen Normal (Normal) mg/dL Ur Leukocyte Esterase Large H (Negative) Urine Microscopic RBC 5-15 H (0-3) per hpf Urine Microscopic WBC TNTC H (0-3) per hpf Ur Squamous Epith Cells Moderate H (None-Few) per lpf Urine Bacteria Many H (None-Few) per hpf Hyaline Casts None Seen (None-Few) per lpf Ur Culture Indicated? YES A (NO) Urine Opiates Screen Positive H (Vqjsdd=345) ng/mL Ur Barbiturates Screen Negative (Zpapgw=167) ng/mL Ur Phencyclidine Scrn Negative (Cutoff=25) ng/mL Ur Amphetamines Screen Negative (Nipuyq=7297) ng/mL U Benzodiazepines Scrn Positive H (Glbvko=090) ng/mL Urine Cocaine Screen Negative (Cutoff= 300) ng/mL U Marijuana (THC) Screen Negative (Cutoff = 50) ng/mL Ethyl Alcohol (Less than 10) mg/dL - Radiology Data Radiology results reviewed: Yes I reviewed the patient's radiology results. Chest X-Ray 06/07/17 12:46 IMPRESSION: No acute focal process in the lungs. D/ / Juan Alberto Boucher MD / Juan Alberto Boucher MD Interpreting Provider: Juan Alberto Boucher MD Head CT 06/07/17 12:47 IMPRESSION: No acute intracranial abnormality. The patient has electrodes terminating in the mid brain, stable. Senescent changes including chronic microvascular change. D/ / 06/07/2017 14:14:25 Pina Burgos MD / vanessa Interpreting Provider: Pina Burgos MD - EKG Data EKG attestation: Yes I reviewed and interpreted this EKG. EKG results narrative: EKG taken 06/07/2017 at 1232 hrs. shows a sinus rhythm at a rate of 87 beats minute with no acute ST elevations in any leads, [address] depressions in V2, V3 less than 1 small box. There is no QRS widening or QT prolongation. Previous EKG for comparison taken 12/28/2016 also shows a sinus rhythm at a rate of 93 bpm. EKG is different from today's EKG but still normal sinus rhythm it Remarks septal infarct TPA Checklist - LKW: 3-4.5 hrs Add. Warnings/Precautions Patient/family understanding: The patient/family members have been counseled and understood the risk, benefit , and alternatives of treatment.
[2017-06-07 13:27] LABS: Bilirubin,Urine Negative (Negative); Blood,Urine Trace (Negative); Clarity,Urine Turbid (Clear); Color,Urine Yellow (Yellow); Glucose,Urine (UA) Normal (Normal); Ketones,Urine Negative (Negative); Leukocyte Esterase,Urine Large (Negative); Nitrite,Urine Negative (Negative); Protein,Urine >=300 mg/dL (Neg-Trace); Specific Gravity,Urine 1.019 (1.010-1.025); Urobilinogen,Urine Normal (Normal)
[2017-06-07 13:30] LABS: Basophils % 0.3 %; Eosinophils % 0.4 %; Hematocrit 40.6 % (35.3-44.9); Hemoglobin 13.8 g/dL (11.5-15.4); Immature Granulocytes % 0.3 % (0-4); Lymphocytes # 1.5 K/mcL (0.6-4.6); Lymphocytes % 15.6 %; Mean Corpuscular Volume 85.3 fL (83.0-100.0); Mean Platelet Volume 9.9 fL (9.4-12.4); Monocytes # 0.8 K/mcL (0.0-1.3); Monocytes % 8.2 %; Platelet Count 273 K/mcL (140-400); Red Blood Count 4.76 M/mcL (3.82-4.97); Red Cell Distribution Width 12.7 % (11.5-14.5); Segmented Neutrophils % 75.2 %
[2017-06-07 13:31] LABS: Bacteria,Urine Many per hpf (None-Few); Hyaline Casts,Urine None Seen per lpf (None-Few); Squamous Epithelial Cell,Urine Moderate per lpf (None-Few); WBC,Urine TNTC per hpf (0-3)
[2017-06-07 13:34] LABS: Troponin I < 0.03 ng/mL (< 0.04)
[2017-06-07 13:35] LABS: INR 1.1
[2017-06-07 13:37] LABS: Activated Partial Thrombo Time 29.8 Seconds (26.0-36.0)
--- NOTE | 2017-06-07 13:40 | Emergency Department Note ---
Disposition Clinical Impression: Altered mental status Qualifiers: Altered mental status type: somnolence Qualified Code(s): R40.0 - Somnolence Disposition: Still a Patient Referrals: Rohit Deluna MD [Primary Care Provider] - Forms: ED Satisfaction Letter General Adult HPI - General Chief complaint: ED Altered Mental Status Stated complaint: AMS Source: patient, EMS, other Limitations: altered mental status - History of Present Illness Pain Scale: 0 - Related Data Home Medications Medication Instructions Recorded Confirmed Aspirin 325 mg PO DAILY 03/23/15 12/28/16 Folic Acid 0.4 mg PO DAILY 03/23/15 12/28/16 Metoprolol [Lopressor] 25 mg PO BID 03/23/15 12/28/16 Nitroglycerin [Nitrostat] 0.4 mg SL Q5M PRN 03/23/15 12/28/16 Acetaminophen [Tylenol] 1,000 mg PO HS 10/12/16 12/28/16 Albuterol Sulfate [Proair Hfa] 2 puff IH Q4H PRN 10/12/16 12/28/16 Beclomethasone Diprop 40mcg [QVAR 2 puff IH BID 10/12/16 12/28/16 40 mcg] Carbidopa/Levodopa 25/100 [Sinemet 1 each PO 5XD 10/12/16 12/28/16 25/100] Cyanocobalamin (Vitamin B-12) 1,000 mcg PO DAILY 10/12/16 12/28/16 [Vitamin B12] Dicyclomine [Bentyl] 10 mg PO BID 10/12/16 12/28/16 Donepezil [Aricept] 5 mg PO HS 10/12/16 12/28/16 Ergocalciferol (VITAMIN D2) 50,000 unit PO SA 10/12/16 12/28/16 [Vitamin D2] Fexofenadine HCl [Allergy Relief] 180 mg PO DAILY 10/12/16 12/28/16 Gabapentin [Neurontin] 300 mg PO QAM 10/12/16 12/28/16 Gabapentin [Neurontin] 600 mg PO HS 10/12/16 12/28/16 Glycopyrrolate [Robinul] 0.5 mg PO BID 10/12/16 12/28/16 Magnesium Hydroxide [Milk of 2,400 mg PO DAILY PRN 10/12/16 12/28/16 Magnesia] Multivit,Th Iron,Other Min 1 each PO DAILY 10/12/16 12/28/16 [Therems-M] Olopatadine HCl [Patanol] 2 drop BOTH EYES BID 10/12/16 12/28/16 Polyethylene Glycol 3350 [MiraLAX] 17 gm PO DAILY PRN 10/12/16 12/28/16 Rivastigmine Tartrate (oral) 3 mg PO BID 10/12/16 12/28/16 [Exelon] Scopolamine Patch [Transderm-Scop] 1.5 mg TD Q72H 10/12/16 12/28/16 Sennosides/Docusate Sodium 2 each PO BID 10/12/16 12/28/16 [Senna-S Tablet] Ropinirole HCl [Requip] 0.25 mg PO HS 12/28/16 12/28/16 Sertraline [Zoloft] 50 mg PO DAILY 12/28/16 12/28/16 Previous Rx's Medication Instructions Recorded Acetaminophen [Tylenol Susp] 650 mg GTUBE Q6HR PRN ud.liq 01/08/17 Albuterol Neb [Proventil Neb] 2.5 mg IH BID #0 01/08/17 Amoxicillin/Clavulanate [Augmentin] 875 mg PO BIDWM #6 tablet 01/08/17 Folic Acid 1 mg GTUBE DAILY tablet 01/08/17 Lansoprazole [Prevacid] 30 mg GTUBE QAM capsule. 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 I agree with the documented findings, disposition and treatment plan as described except to the extent set forth below. Patient seen with emergency medicine resident Dr. Angelo Lopez, Please see a copy of his note for details of the H&P, ED evaluation, management and disposition. I have independently evaluated the patient and confirmed appropriate portions of the history and physical exam. Briefly:71-year-old female by EMS [facility] for "decreased responsiveness mental status change. Patient is normally conversant and ambulatory arrives with being very weak and minimally responsive. She is afebrile with stable vital signs. Her family says she gets this way when she has a bladder infection. Patient is no external signs of trauma or infection. Imaging head CT and screening labs are pending with admission anticipated. Provided 40 minutes of critical care service for this patient Time: 13:38 Vital Signs Temperature 98 F 06/07/17 12:30 Pulse Rate 90 06/07/17 12:30 Respiratory Rate 20 06/07/17 12:30 Blood Pressure 175/89 06/07/17 12:30 O2 Sat by Pulse Oximetry 94 06/07/17 12:30 Temperature 98 F 06/07/17 12:30 Pulse Rate 91 06/07/17 12:40 Respiratory Rate 20 06/07/17 12:40 Blood Pressure 173/84 06/07/17 12:40 O2 Sat by Pulse Oximetry 96 06/07/17 12:40 Oxygen Delivery Oxygen Delivery Room Air Medical Decision Making - Lab Data Result diagrams: 06/07/17 12:57 Lab Results 06/07/17 06/07/17 06/07/17 Range/Units 12:57 12:57 12:57 WBC 9.3 (4.3-11.1) K/mcL RBC 4.76 (3.82-4.97) M/mcL Hgb 13.8 (11.5-15.4) g/dL Hct 40.6 (35.3-44.9) % MCV 85.3 (83.0-100.0) fL MCH 29.0 (28.0-33.3) pg MCHC 34.0 (31.6-35.5) g/dL RDW 12.7 (11.5-14.5) % Plt Count 273 (140-400) K/mcL MPV 9.9 (9.4-12.4) fL Immature Gran % 0.3 (0-4) % Seg Neutrophils % 75.2 % Lymphocytes % 15.6 % Monocytes % 8.2 % Eosinophils % 0.4 % Basophils % 0.3 % Neutrophils # 7.0 (1.6-8.9) K/mcL Lymphocytes # 1.5 (0.6-4.6) K/mcL Monocytes # 0.8 (0.0-1.3) K/mcL Eosinophils # 0.0 (0.0-0.6) K/mcL Basophils # 0.0 (0.0-0.2) K/mcL Ammonia 30 (16-53) mcmol/L Troponin I < 0.03 (< 0.04) ng/mL Urine Color (Yellow) Urine Clarity (Clear) Urine pH (5.0-8.0) pH Units Ur Specific [place] (1.010-1.025) Urine Protein (Neg-Trace) mg/dL Urine Glucose (UA) (Normal) mg/dL Urine Ketones (Negative) mg/dL Urine Blood (Negative) Urine Nitrite (Negative) Urine Bilirubin (Negative) Urine Urobilinogen (Normal) mg/dL Ur Leukocyte Esterase (Negative) 06/07/17 Range/Units 13:05 WBC (4.3-11.1) K/mcL RBC (3.82-4.97) M/mcL Hgb (11.5-15.4) g/dL Hct (35.3-44.9) % MCV (83.0-100.0) fL MCH (28.0-33.3) pg MCHC (31.6-35.5) g/dL RDW (11.5-14.5) % Plt Count (140-400) K/mcL MPV (9.4-12.4) fL Immature Gran % (0-4) % Seg Neutrophils % % Lymphocytes % % Monocytes % % Eosinophils % % Basophils % % Neutrophils # (1.6-8.9) K/mcL Lymphocytes # (0.6-4.6) K/mcL Monocytes # (0.0-1.3) K/mcL Eosinophils # (0.0-0.6) K/mcL Basophils # (0.0-0.2) K/mcL Ammonia (16-53) mcmol/L Troponin I (< 0.04) ng/mL Urine Color Yellow (Yellow) Urine Clarity Turbid A (Clear) Urine pH 7.0 (5.0-8.0) pH Units Ur Specific [place] 1.019 (1.010-1.025) Urine Protein >=300 H (Neg-Trace) mg/dL Urine Glucose (UA) Normal (Normal) mg/dL Urine Ketones Negative (Negative) mg/dL Urine Blood Trace H (Negative) Urine Nitrite Negative (Negative) Urine Bilirubin Negative (Negative) Urine Urobilinogen Normal (Normal) mg/dL Ur Leukocyte Esterase Large H (Negative)
[2017-06-07 14:10] LABS: Alanine Aminotransferase 25 Units/L (7-52); Albumin/Globulin Ratio 1.4 (1.1-2.2); Alkaline Phosphatase 77 Units/L (34-104); Aspartate Amino Transferase 14 Units/L (13-39); BUN/Creatinine Ratio 25 (6-26); Bilirubin,Direct 0.2 mg/dL (0.0-0.2); Bilirubin,Indirect 0.2 mg/dL (0.0-1.2); Bilirubin,Total 0.4 mg/dL (0.3-1.0); Blood Urea Nitrogen 15 mg/dL (8-23); Calcium 9.4 mg/dL (8.6-10.3); Carbon Dioxide 22 mEq/L (23-29); Chloride 105 mEq/L (98-107); Creatine Kinase 24 Units/L (30-223); Ethanol < 10 mg/dL (Less than 10); Globulin 2.9 g/dL (2.4-3.5); Glucose 118 mg/dL (70-105); Osmolality,Calculated 294 (280-300); Potassium 3.5 mEq/L (3.5-5.1); Sodium 141 mEq/L (136-145); Total Protein 6.9 g/dL (6.4-8.9); eGFR For African Americans > 60 (> 60); eGFR For Non-African Americans > 60 (> 60)
[2017-06-07 14:11] LABS: Amphetamine Screen,Urine Negative ng/mL (Cutoff=1000); Barbiturate Screen,Urine Negative ng/mL (Cutoff=200); Benzodiazepines Screen,Urine Positive ng/mL (Cutoff=200); Cannabinoid Screen,Urine Negative ng/mL (Cutoff = 50); Cocaine Screen,Urine Negative ng/mL (Cutoff= 300); Opiate Screen,Urine Positive ng/mL (Cutoff=300); Phencyclidine Screen,Urine Negative ng/mL (Cutoff=25)
[2017-06-07] MEDS ORDERED: cefTRIAXone 2,000 MG in Water for inj. (sterile) 20 ML 20 ML IVP ONE (15:04)
[2017-06-07] MEDS ORDERED: Nitroglycerin 0.4 MG TAB.SUBL SL PRN (21:10)
[2017-06-07] MEDS ORDERED: Atropine Sulfate 1% 40 DROP/2 ML BOTTLE SL PRN (21:10)
[2017-06-07] MEDS ORDERED: MOM Conc 10 ML UD.LIQ PO PRN (21:10)
[2017-06-07] MEDS ORDERED: Naloxone 0.4 MG/ML INJ IVP PRN (21:14)
--- NOTE | 2017-06-07 21:23 | Internal Med History&Physical ---
Date of Encounter: 06/07/17 Time of Encounter: 21:20 Internal Medicine - H&P: HPI Chief complaint: UnResponsive Admitted From: Emergency Dept Plans for Post Hospital Care: Home History of present illness: Ms. Real is a 71 year old female who has a background medical history of advanced dementia, COPD, hypertension, Parkinson's disease, Patient is a resident of [facility]. Patient was sent from this facility to emergency room as she was found to be unresponsive. Patient was evaluated in the [facility] and they found that patient was apparently responsive to this morning when she woke up but certainly the medical file clerk noted that patient was unresponsive. This was the reason patient was sent to the emergency room. Workup in the emergency room: Patient was evaluated in the emergency room. Baseline labs were drawn. Urinalysis was suggestive of a urinary tract infection. CT head showed no acute changes. Chest x-ray did not reveal any pneumonia. Reason for admission: Acute urinary tract infection in a patient who has advanced dementia with change in mental status. Past Med Surg Social Fam HX - Past Medical History Medical history: COPD, dementia, hypertension, other Psychiatric history: other - Past Surgical History Surgical History: other (previous right chest and left chest stimulator present) - Social History Smoking Status: Former smoker Smokeless Tobacco Status: No Alcohol use: none Drug use: none - Family History Father Family Member Ethnicity: Non- Living Status: Mother Adopted: Yes Family Member Ethnicity: Non- Living Status: Hx Family Cardiac Disorders: No Brother Family Member Ethnicity: Non- Living Status: Hx Family Cancer: Yes (Unknown type) Sister Family Member Ethnicity: Non- Living Status: Hx Family Cardiac Disorders: Yes (HD) Hx Family Respiratory Disorders: Yes (COPD) Hx Family Cancer: No Hx Family GI Disorders: No Hx Family Endocrine Disorder: Yes (Diabetes) Hx Family Neurologic Disorders: Yes Hx Family HEENT Disorders: No Hx Family Autoimmune Disorders: No Internal Medicine - H&P: Meds Metoprolol [Lopressor] 25 mg PO BID 03/23/15 [History] Nitroglycerin [Nitrostat] 0.4 mg SL Q5M PRN 03/23/15 [History] Acetaminophen [Tylenol] 1,000 mg PO HS 10/12/16 [History] Albuterol Sulfate [Proair Hfa] 2 puff IH Q4H PRN 10/12/16 [History] Beclomethasone Diprop 40mcg [QVAR 40 mcg] 2 puff IH BID 10/12/16 [History] Carbidopa/Levodopa 25/100 [Sinemet 25/100] 1.5 tab PO 5XD 10/12/16 [History] Cyanocobalamin (Vitamin B-12) [Vitamin B12] 1,000 mcg PO DAILY 10/12/16 [History ] Dicyclomine [Bentyl] 10 mg PO BID 10/12/16 [History] Donepezil [Aricept] 5 mg PO HS 10/12/16 [History] Ergocalciferol (VITAMIN D2) [Vitamin D2] 50,000 unit PO SA 10/12/16 [History] Fexofenadine HCl [Allergy Relief] 180 mg PO DAILY 10/12/16 [History] Gabapentin [Neurontin] 300 mg PO QAM 10/12/16 [History] Gabapentin [Neurontin] 600 mg PO HS 10/12/16 [History] Glycopyrrolate [Robinul] 0.5 mg PO BID 10/12/16 [History] Magnesium Hydroxide [Milk of Magnesia] 2,400 mg PO DAILY PRN 10/12/16 [History] Multivit,Th Iron,Other Min [Therems-M] 1 each PO DAILY 10/12/16 [History] Olopatadine HCl [Patanol] 2 drop BOTH EYES BID 10/12/16 [History] Polyethylene Glycol 3350 [MiraLAX] 17 gm PO DAILY PRN 10/12/16 [History] Scopolamine Patch [Transderm-Scop] 1.5 mg TD Q72H 10/12/16 [History] Sennosides/Docusate Sodium [Senna-S Tablet] 2 each PO BID 10/12/16 [History] Ropinirole HCl [Requip] 0.25 mg PO HS 12/28/16 [History] Sertraline [Zoloft] 50 mg PO DAILY 12/28/16 [History] Acetaminophen [Tylenol Susp] 650 mg GTUBE Q6HR PRN ud.liq 01/08/17 [Rx] Albuterol Neb [Proventil Neb] 2.5 mg IH BID #0 01/08/17 [Rx] Folic Acid 1 mg GTUBE DAILY tablet 01/08/17 [Rx] Lisinopril [Zestril] 2.5 mg GTUBE DAILY tablet 01/08/17 [Rx] ALPRAZolam [Xanax 0.5 MG Tablet] 0.5 mg PO TID PRN 06/07/17 [History] Atropine Sulfate in 0.9% NaCl [Atropine 0.01%-Ns Eye Drops] 2 drop PO Q2H PRN [History] Docusate Sodium [Dok] 100 mg PO BID 06/07/17 [History] Furosemide [Lasix] 40 mg PO DAILY 06/07/17 [History] HYDROcodone/Acet 5/325 mg [Randolph 5-325 mg] 1 tab PO Q8H PRN 06/07/17 [History] Omeprazole [PriLOSEC] 20 mg PO DAILY 06/07/17 [History] Potassium Chloride 20 meq PO DAILY 06/07/17 [History] 3 Allergy/AdvReac Type Severity Reaction Status Date / Time meperidine [From Demerol] Allergy Rash Verified 06/07/17 12:28 ROS unobtainable: due to mental status All Systems PM: A 10-system review of systems was performed and is negative for pertinent findings except as documented above in the HPI. - Constitutional Constitutional: no chills, no fever(s), no night sweats - EENT Eyes: no change in vision, no discharge, no pain, no photophobia Ears: no ear discharge, no ear pain, no tinnitus Nose, mouth and throat: no dysphagia, no nasal discharge, no neck pain, no sore throat - Cardiovascular Cardiovascular ROS IM: no chest pain, no diaphoresis, no dyspnea, no lightheadedness, no palpitations, no syncope - Respiratory Respiratory: no cough, no dyspnea, no wheezing, no excessive phlegm production - Gastrointestinal Gastrointestinal: no abdominal pain, no diarrhea, no hematemesis, no hematochezia, no melena, no nausea, no vomiting - Genitourinary Genitourinary: no change in urinary stream, no dysuria, no flank pain, no hematuria - Musculoskeletal Musculoskeletal ROS IM: no numbness, no tingling - Integumentary Integumentary IM: no rash, no unusual bruising - Neurological Neurological ROS: no confusion, no convulsions, no focal weakness, no numbness, no tingling, no tremor(s) - Hematologic/Lymphatic Hematologic/Lymphatic: no easy bruising - Constitutional Vitals: Temp Pulse Resp BP Pulse Ox 98.9 F 85 16 180/78 92 06/07/17 20:32 06/07/17 20:32 06/07/17 20:32 06/07/17 20:32 06/07/17 20:32 General appearance: Present: A&O X 2, pleasant, no acute distress, underweight - Head Head exam: Present: atraumatic, normocephalic - Eye Eye exam: Present: PERRL, conjuntiva pink, sclera anicteric Pupils: Present: PERRL - Neck Neck exam general surgery: Present: supple, trachea midline. Absent: lymphadenopathy - Respiratory Respiratory exam: Present: CTAB. Absent: accessory muscle use, rales, rhonchi, wheezes - Cardiovascular Cardiovascular exam: Present: RRR, +S1, +S2. Absent: diastolic murmur, gallop, rubs, systolic murmur - GI/Abdominal GI/Abdominal exam: Present: normal bowel sounds, soft, no peritoneal signs. Absent: distended, tenderness - Extremities Exam Extremities exam: Present: warm, radial pulses palpable and symmetrical. Absent : calf tenderness, cyanotic, pedal edema - Neurological Exam Neurological exam: Present: CN II-XII intact, oriented X3, no focal deficits. Absent: pronater drift, facial droop, speech deficit - Skin Skin exam: Present: dry, intact Internal Med - H&P Results - Labs CBC & Chem 7: 06/07/17 12:57 06/07/17 12:57 - Assessment and plan (1) Altered mental status Current Visit: Yes Status: Acute Assessment and plan: Reason for altered mental status/somnolence is likely underlying infection. Next and patient has urinary tract infection. UA suggestive of underlying infective process. Plan: Admit as inpatient. Intravenous access. Intravenous ceftriaxone 1 g every 24 hours. Resume home medication. Plan of care discussed with the patient/family. Family verbalized understanding. Qualifiers: Altered mental status type: somnolence Qualified Code(s): R40.0 - Somnolence (2) UTI (urinary tract infection) Current Visit: Yes Status: Acute Assessment and plan: The reason for patient's mental changes likely underlying urinary tract infection. We will start patient on intravenous ceftriaxone. We will closely monitor the patient. Blood cultures/urine culture sent. Qualifiers: Urinary tract infection type: acute cystitis Hematuria presence: with hematuria Qualified Code(s): N30.01 - Acute cystitis with hematuria (3) Parkinsons disease Current Visit: No Status: Chronic Assessment and plan: Patient has advanced Parkinson's disease. Patient is on appropriate medication for the same. We will resume home medications. At this point I do not think we need a neurology evaluation. (4) COPD (chronic obstructive pulmonary disease) Current Visit: No Status: Chronic Assessment and plan: Patient is known to have a COPD. At this point patient is not in exacerbation of COPD. We will resume the home medications and will follow very closely. Qualifiers: COPD type: unspecified COPD Qualified Code(s): J44.9 - Chronic obstructive pulmonary disease, unspecified (5) HTN (hypertension) Current Visit: No Status: Chronic Assessment and plan: Patient is known to have a high blood pressure/hypertension. Patient is an appropriate medication for the same. We will resume her home medication. Qualifiers: Hypertension type: essential hypertension Qualified Code(s): I10 - Essential (primary) hypertension (6) DVT prophylaxis Current Visit: No Status: Acute Assessment and plan: Heparin Medical decision making: This patient has a moderate to severe risk of worsening in spite of being on appropriate medication due to the underlying multiple comorbid conditions. - Time Spent With Patient Total time spent is greater than 50% in coordination of care (as documented) at patient's floor/unit and/or counseling patient:
[2017-06-08] MEDS: 0.9 % Sodium Chloride 1,000 ML IVC SCH ×2 (00:27→12:19)
[2017-06-08] MEDS: Scopolamine Patch 1.5 MG PATCH.TD72 TD SCH (00:28)
[2017-06-08] MEDS: *HR* Heparin 5,000 UNIT/ML VIAL SQ SCH ×4 (00:28→22:21)
[2017-06-08] MEDS: Carbidopa/Levodopa 25/100 TABLET PO SCH ×5 (00:28→20:08)
[2017-06-08 03:01] LABS: Basophils % 0.2 %; Eosinophils # 0.1 K/mcL (0.0-0.6); Eosinophils % 0.6 %; Hematocrit 37.8 % (35.3-44.9); Hemoglobin 12.6 g/dL (11.5-15.4); Immature Granulocytes % 0.3 % (0-4); Lymphocytes # 1.3 K/mcL (0.6-4.6); Lymphocytes % 14.9 %; Mean Corpuscular HGB Conc 33.3 g/dL (31.6-35.5); Mean Corpuscular Hemoglobin 28.4 pg (28.0-33.3); Mean Corpuscular Volume 85.3 fL (83.0-100.0); Mean Platelet Volume 9.8 fL (9.4-12.4); Monocytes # 0.8 K/mcL (0.0-1.3); Monocytes % 9.1 %; Neutrophils # 6.8 K/mcL (1.6-8.9); Platelet Count 252 K/mcL (140-400); Red Blood Count 4.43 M/mcL (3.82-4.97); Segmented Neutrophils % 74.9 %
[2017-06-08 03:20] LABS: Magnesium 1.9 mg/dL (1.6-2.6)
[2017-06-08] MEDS: Loratadine 10 MG TABLET PO SCH (10:26)
[2017-06-08] MEDS: Gabapentin 300 MG CAPSULE PO SCH ×2 (10:26→20:07)
[2017-06-08] MEDS: Cyanocobalamin (B-12) 1,000 MCG TABLET PO SCH (10:26)
[2017-06-08] MEDS: Folic Acid 1 MG TABLET GTUBE SCH (10:26)
[2017-06-08] MEDS: Sennosides/Docusate Sodium TABLET PO SCH ×2 (10:27→20:07)
[2017-06-08] MEDS: Multivit/Ca/Min/Fe/FA 1 TAB TABLET PO SCH (10:27)
[2017-06-08] MEDS: Furosemide 40 MG TABLET PO SCH (10:27)
[2017-06-08] MEDS: Glycopyrrolate 1 MG TABLET PO SCH ×2 (10:27→20:08)
[2017-06-08] MEDS: OLOPATADINE HCL OP SCH ×2 (10:49→20:25)
[2017-06-08] MEDS: cefTRIAXone 1,000 MG in Water for inj. (sterile) 20 ML 10 ML IVPB SCH (11:07)
--- NOTE | 2017-06-08 11:17 | Internal Med Progress Note ---
Date of Encounter: 06/08/17 Time of Encounter: 11:15 - Assessment and plan (1) Altered mental status Current Visit: Yes Status: Acute Assessment and plan: Suspect this is rt UTI- She now Alert/oriented to name and place following simple commands cont with ATB Rocephin Fall precations Qualifiers: Altered mental status type: somnolence Qualified Code(s): R40.0 - Somnolence (2) HTN (hypertension) Current Visit: No Status: Chronic Assessment and plan: Patient is known to have a high blood pressure/hypertension. Cont her home medication. Qualifiers: Hypertension type: essential hypertension Qualified Code(s): I10 - Essential (primary) hypertension (3) COPD (chronic obstructive pulmonary disease) Current Visit: No Status: Chronic Assessment and plan: Stable no wheezing cont with bronchodilators O2 as needed Qualifiers: COPD type: unspecified COPD Qualified Code(s): J44.9 - Chronic obstructive pulmonary disease, unspecified (4) Parkinsons disease Current Visit: No Status: Chronic Assessment and plan: Patient has advanced Parkinson's disease. Cont home medications Consult neurology as needed (5) UTI (urinary tract infection) Current Visit: Yes Status: Acute Assessment and plan: The reason for patient's mental changes likely underlying urinary tract infection. Cont Rocephine pending culture sensitivity We will start patient on intravenous ceftriaxone. Blood cultures/urine culture sent. Qualifiers: Urinary tract infection type: acute cystitis Hematuria presence: with hematuria Qualified Code(s): N30.01 - Acute cystitis with hematuria (6) DVT prophylaxis Current Visit: No Status: Acute Assessment and plan: Heparin Subcutaneous M - Time Spent With Patient Total time spent is greater than 50% in coordination of care (as documented) at patient's floor/unit and/or counseling patient: - Subjective Interval history: Shima is new to me I did review records. I examined patient at bedside. She is A/O X 2 follow simple commands. No focal deficits noted. - Constitutional Vitals: Temp Pulse Resp BP Pulse Ox 97.3 F L 114 17 141/69 95 06/08/17 10:55 06/08/17 10:55 06/08/17 10:55 06/08/17 10:55 06/08/17 10:55 General appearance: Present: A&O X 2, pleasant, no acute distress, underweight - Head Head exam: Present: atraumatic, normocephalic - Eye Eye exam: Present: PERRL, conjuntiva pink, sclera anicteric Pupils: Present: PERRL - Neck Neck exam general surgery: Present: supple, trachea midline. Absent: lymphadenopathy - Respiratory Respiratory exam: Present: CTAB. Absent: accessory muscle use, rales, rhonchi, wheezes - Cardiovascular Cardiovascular exam: Present: RRR, +S1, +S2. Absent: diastolic murmur, gallop, rubs, systolic murmur - GI/Abdominal GI/Abdominal exam: Present: normal bowel sounds, soft, no peritoneal signs. Absent: distended, tenderness - Extremities Exam Extremities exam: Present: warm, radial pulses palpable and symmetrical. Absent : calf tenderness, cyanotic, pedal edema - Neurological Exam Neurological exam: Present: CN II-XII intact, oriented X3, no focal deficits. Absent: pronater drift, facial droop, speech deficit - Skin Skin exam: Present: dry, intact Internal Medicine: Result - Labs CBC & Chem 7: 06/08/17 02:47 06/07/17 12:57 Labs: Short CBC 06/08/17 Range/Units 02:47 WBC 9.0 (4.3-11.1) K/mcL Hgb 12.6 (11.5-15.4) g/dL Hct 37.8 (35.3-44.9) % Plt Count 252 (140-400) K/mcL Neutrophils # 6.8 (1.6-8.9) K/mcL - ABG Interpretation ABG results: PT/INR, D-dimer PT 12.0 Seconds (9.4-12.1) 06/07/17 12:57 Consult Discharge Plan - Plan [facility] [facility] [place] [Primary Care Provider] -
[2017-06-08] MEDS: Albuterol 2.5 MG/3 ML NEBULIZER IH SCH ×2 (11:21→22:27)
[2017-06-08] MEDS: Beclomethasone 40mcg MDI IH SCH ×2 (11:21→22:26)
[2017-06-08] MEDS: ALPRAZolam 0.5 MG TABLET PO PRN (18:35)
[2017-06-08] MEDS: *HR* HYDROcodone/Acet 5/325 mg TABLET PO PRN (18:35)
[2017-06-08] MEDS: rOPINIRole 0.25 MG TABLET PO SCH (20:07)
[2017-06-09 04:49] LABS: Basophils % 0.5 %; Eosinophils # 0.2 K/mcL (0.0-0.6); Eosinophils % 2.8 %; Hemoglobin 10.8 g/dL (11.5-15.4); Immature Granulocytes % 0.3 % (0-4); Lymphocytes # 2.1 K/mcL (0.6-4.6); Lymphocytes % 32.1 %; Mean Corpuscular HGB Conc 32.7 g/dL (31.6-35.5); Mean Corpuscular Hemoglobin 28.2 pg (28.0-33.3); Mean Corpuscular Volume 86.2 fL (83.0-100.0); Mean Platelet Volume 10.2 fL (9.4-12.4); Monocytes # 0.8 K/mcL (0.0-1.3); Neutrophils # 3.4 K/mcL (1.6-8.9); Platelet Count 231 K/mcL (140-400); Red Blood Count 3.83 M/mcL (3.82-4.97); Red Cell Distribution Width 13.2 % (11.5-14.5); Segmented Neutrophils % 52.3 %
[2017-06-09] MEDS: *HR* Heparin 5,000 UNIT/ML VIAL SQ SCH ×3 (06:21→20:51)
--- NOTE | 2017-06-09 06:59 | Electrocardiograph Report ---
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
[2017-06-09] MEDS: Beclomethasone 40mcg MDI IH SCH ×2 (08:40→22:03)
[2017-06-09] MEDS: Albuterol 2.5 MG/3 ML NEBULIZER IH SCH ×2 (08:44→22:03)
[2017-06-09] MEDS: cefTRIAXone 1,000 MG in Water for inj. (sterile) 20 ML 10 ML IVPB SCH (08:48)
[2017-06-09] MEDS: Loratadine 10 MG TABLET PO SCH (08:49)
[2017-06-09] MEDS: Folic Acid 1 MG TABLET GTUBE SCH (08:49)
[2017-06-09] MEDS: Sennosides/Docusate Sodium TABLET PO SCH ×2 (08:49→20:51)
[2017-06-09] MEDS: Glycopyrrolate 1 MG TABLET PO SCH ×2 (08:50→20:50)
[2017-06-09] MEDS: Cyanocobalamin (B-12) 1,000 MCG TABLET PO SCH (08:50)
[2017-06-09] MEDS: Gabapentin 300 MG CAPSULE PO SCH ×2 (08:50→20:52)
[2017-06-09] MEDS: Furosemide 40 MG TABLET PO SCH (08:51)
[2017-06-09] MEDS: Carbidopa/Levodopa 25/100 TABLET PO SCH ×5 (08:51→20:50)
[2017-06-09] MEDS: Multivit/Ca/Min/Fe/FA 1 TAB TABLET PO SCH (08:51)
[2017-06-09] MEDS: OLOPATADINE HCL OP SCH ×2 (08:52→20:52)
[2017-06-09 09:41] LABS: BUN/Creatinine Ratio 14 (6-26); Blood Urea Nitrogen 9 mg/dL (8-23); Calcium 8.9 mg/dL (8.6-10.3); Carbon Dioxide 25 mEq/L (23-29); Chloride 109 mEq/L (98-107); Glucose 106 mg/dL (70-105); Osmolality,Calculated 293 (280-300); Potassium 3.4 mEq/L (3.5-5.1); Sodium 142 mEq/L (136-145); eGFR For African Americans > 60 (> 60); eGFR For Non-African Americans > 60 (> 60)
--- NOTE | 2017-06-09 11:26 | Internal Med Progress Note ---
Date of Encounter: 06/09/17 Time of Encounter: 11:25 - Assessment and plan (1) UTI (urinary tract infection) Current Visit: Yes Status: Acute Assessment and plan: The reason for patient's mental changes likely underlying urinary tract infection. Cont Rocephine pending culture sensitivity We will start patient on intravenous ceftriaxone. Blood cultures are negative urine culture does show Escherichia coli sensitive to Rocephin which we will continue Qualifiers: Urinary tract infection type: acute cystitis Hematuria presence: with hematuria Qualified Code(s): N30.01 - Acute cystitis with hematuria (2) Altered mental status Current Visit: Yes Status: Acute Assessment and plan: Suspect this is rt UTI- she is now very Alert she is oriented to name and time following simple commands cont with ATB Rocephin Fall precations Qualifiers: Altered mental status type: somnolence Qualified Code(s): R40.0 - Somnolence (3) HTN (hypertension) Current Visit: No Status: Chronic Assessment and plan: Patient is known to have a high blood pressure/hypertension.-Stable at this time Cont her home medication. Qualifiers: Hypertension type: essential hypertension Qualified Code(s): I10 - Essential (primary) hypertension (4) COPD (chronic obstructive pulmonary disease) Current Visit: No Status: Chronic Assessment and plan: Stable no wheezing cont with bronchodilators O2 as needed Qualifiers: COPD type: unspecified COPD Qualified Code(s): J44.9 - Chronic obstructive pulmonary disease, unspecified (5) Parkinsons disease Current Visit: No Status: Chronic Assessment and plan: Patient has advanced Parkinson's disease. Cont home medications-stable at this time Consult neurology as needed (6) DVT prophylaxis Current Visit: No Status: Acute Assessment and plan: Heparin Subcutaneous M - Time Spent With Patient Total time spent is greater than 50% in coordination of care (as documented) at patient's floor/unit and/or counseling patient: - Subjective Interval history: Shima is new to me I did review records. I examined patient at bedside. She is A/O X 2 follow simple commands. No focal deficits noted. - Constitutional Vitals: Temp Pulse Resp BP Pulse Ox 97.7 F 95 14 152/80 95 06/09/17 10:57 06/09/17 10:57 06/09/17 10:57 06/09/17 10:57 06/09/17 10:57 General appearance: Present: A&O X 2, pleasant, no acute distress, underweight - Head Head exam: Present: atraumatic, normocephalic - Eye Eye exam: Present: PERRL, conjuntiva pink, sclera anicteric Pupils: Present: PERRL - Neck Neck exam general surgery: Present: supple, trachea midline. Absent: lymphadenopathy - Respiratory Respiratory exam: Present: decreased breath sounds, CTAB. Absent: accessory muscle use, rales, rhonchi, wheezes - Cardiovascular Cardiovascular exam: Present: RRR, +S1, +S2. Absent: diastolic murmur, gallop, rubs, systolic murmur - GI/Abdominal GI/Abdominal exam: Present: normal bowel sounds, soft, no peritoneal signs. Absent: distended, tenderness - Extremities Exam Extremities exam: Present: warm, radial pulses palpable and symmetrical. Absent : calf tenderness, cyanotic, pedal edema - Neurological Exam Neurological exam: Present: CN II-XII intact, oriented X3, no focal deficits. Absent: pronater drift, facial droop, speech deficit - Skin Skin exam: Present: dry, intact Internal Medicine: Result - Labs CBC & Chem 7: 06/09/17 03:20 06/09/17 08:25 Labs: Short CBC 06/09/17 Range/Units 03:20 WBC 6.4 (4.3-11.1) K/mcL Hgb 10.8 L D (11.5-15.4) g/dL Hct 33.0 L (35.3-44.9) % Plt Count 231 (140-400) K/mcL Neutrophils # 3.4 (1.6-8.9) K/mcL BMP 06/09/17 08:25 Sodium 142 Potassium 3.4 L Chloride 109 H Carbon Dioxide 25 BUN 9 Creatinine 0.64 Glucose 106 H Calcium 8.9 - ABG Interpretation ABG results: PT/INR, D-dimer PT 12.0 Seconds (9.4-12.1) 06/07/17 12:57 Consult Discharge Plan - Plan Referrals: Mikie,Rohit Chacko MD [Primary Care Provider] -
[2017-06-09] MEDS: rOPINIRole 0.25 MG TABLET PO SCH (20:50)
[2017-06-09] MEDS: ALPRAZolam 0.5 MG TABLET PO PRN (20:59)
[2017-06-10] MEDS: Carbidopa/Levodopa 25/100 TABLET PO SCH ×5 (01:32→20:43)
[2017-06-10 04:29] LABS: Basophils # 0.1 K/mcL (0.0-0.2); Basophils % 0.6 %; Eosinophils # 0.2 K/mcL (0.0-0.6); Eosinophils % 2.6 %; Hematocrit 36.4 % (35.3-44.9); Hemoglobin 11.8 g/dL (11.5-15.4); Immature Granulocytes % 0.4 % (0-4); Lymphocytes # 2.6 K/mcL (0.6-4.6); Lymphocytes % 30.9 %; Mean Corpuscular HGB Conc 32.4 g/dL (31.6-35.5); Mean Corpuscular Hemoglobin 28.3 pg (28.0-33.3); Mean Corpuscular Volume 87.3 fL (83.0-100.0); Mean Platelet Volume 9.8 fL (9.4-12.4); Monocytes # 0.9 K/mcL (0.0-1.3); Monocytes % 10.3 %; Neutrophils # 4.6 K/mcL (1.6-8.9); Platelet Count 243 K/mcL (140-400); Red Blood Count 4.17 M/mcL (3.82-4.97); Red Cell Distribution Width 13.5 % (11.5-14.5); Segmented Neutrophils % 55.2 %
[2017-06-10 04:54] LABS: BUN/Creatinine Ratio 29 (6-26); Blood Urea Nitrogen 18 mg/dL (8-23); Calcium 9.1 mg/dL (8.6-10.3); Carbon Dioxide 25 mEq/L (23-29); Chloride 109 mEq/L (98-107); Glucose 115 mg/dL (70-105); Osmolality,Calculated 303 (280-300); Potassium 3.2 mEq/L (3.5-5.1); Sodium 145 mEq/L (136-145); eGFR For African Americans > 60 (> 60); eGFR For Non-African Americans > 60 (> 60)
[2017-06-10] MEDS: *HR* Heparin 5,000 UNIT/ML VIAL SQ SCH ×3 (05:36→20:44)
[2017-06-10] MEDS: Glycopyrrolate 1 MG TABLET PO SCH ×2 (08:43→20:43)
[2017-06-10] MEDS: Cyanocobalamin (B-12) 1,000 MCG TABLET PO SCH (08:43)
[2017-06-10] MEDS: Multivit/Ca/Min/Fe/FA 1 TAB TABLET PO SCH (08:43)
[2017-06-10] MEDS: Loratadine 10 MG TABLET PO SCH (08:43)
[2017-06-10] MEDS: Folic Acid 1 MG TABLET GTUBE SCH (08:43)
[2017-06-10] MEDS: Sennosides/Docusate Sodium TABLET PO SCH ×2 (08:44→20:43)
[2017-06-10] MEDS: Furosemide 40 MG TABLET PO SCH (08:44)
[2017-06-10] MEDS: Gabapentin 300 MG CAPSULE PO SCH ×2 (08:44→20:43)
[2017-06-10] MEDS: OLOPATADINE HCL OP SCH ×2 (08:45→20:44)
[2017-06-10] MEDS: cefTRIAXone 1,000 MG in Water for inj. (sterile) 20 ML 10 ML IVPB SCH (08:45)
--- NOTE | 2017-06-10 10:38 | Internal Med Progress Note ---
Date of Encounter: 06/10/17 Time of Encounter: 10:38 - Assessment and plan (1) UTI (urinary tract infection) Current Visit: Yes Status: Acute Assessment and plan: The patient appears to be at mental baseline. She is up in a chair appropriate following commands. Blood cultures are negative urine culture does show Escherichia coli sensitive to Rocephin which we will continue Qualifiers: Urinary tract infection type: acute cystitis Hematuria presence: with hematuria Qualified Code(s): N30.01 - Acute cystitis with hematuria (2) Altered mental status Current Visit: Yes Status: Acute Assessment and plan: Suspect this is rt UTI- she seems to be at baseline-sitting up in chair alert oriented times to appropriate following commands cont with ATB Rocephin Fall precations Qualifiers: Altered mental status type: somnolence Qualified Code(s): R40.0 - Somnolence (3) HTN (hypertension) Current Visit: No Status: Chronic Assessment and plan: Patient is known to have a high blood pressure/hypertension.-Stable at this time Cont her home medication. Qualifiers: Hypertension type: essential hypertension Qualified Code(s): I10 - Essential (primary) hypertension (4) COPD (chronic obstructive pulmonary disease) Current Visit: No Status: Chronic Assessment and plan: Stable no wheezing cont with bronchodilators O2 as needed Qualifiers: COPD type: unspecified COPD Qualified Code(s): J44.9 - Chronic obstructive pulmonary disease, unspecified (5) Parkinsons disease Current Visit: No Status: Chronic Assessment and plan: Patient has advanced Parkinson's disease. Cont home medications-stable at this time Consult neurology as needed (6) DVT prophylaxis Current Visit: No Status: Acute Assessment and plan: Heparin Subcutaneous M - Time Spent With Patient Total time spent is greater than 50% in coordination of care (as documented) at patient's floor/unit and/or counseling patient: - Subjective Interval history: I did examine patient at bedside. Patient sitting up in chair she is alert and oriented times to appropriate following simple commands. She denies any pain or discomfort at this time - Constitutional Vitals: Temp Pulse Resp BP Pulse Ox 98.2 F 67 14 149/83 92 06/10/17 07:49 06/10/17 07:49 06/10/17 07:49 06/10/17 07:49 06/10/17 03:00 General appearance: Present: A&O X 2, pleasant, no acute distress, underweight - Head Head exam: Present: atraumatic, normocephalic - Eye Eye exam: Present: PERRL, conjuntiva pink, sclera anicteric Pupils: Present: PERRL - Neck Neck exam general surgery: Present: supple, trachea midline. Absent: lymphadenopathy - Respiratory Respiratory exam: Present: CTAB. Absent: accessory muscle use, rales, rhonchi, wheezes - Cardiovascular Cardiovascular exam: Present: RRR, +S1, +S2. Absent: diastolic murmur, gallop, rubs, systolic murmur - GI/Abdominal GI/Abdominal exam: Present: normal bowel sounds, soft, no peritoneal signs. Absent: distended, tenderness - Extremities Exam Extremities exam: Present: warm, radial pulses palpable and symmetrical. Absent : calf tenderness, cyanotic, pedal edema - Neurological Exam Neurological exam: Present: CN II-XII intact, oriented X3, no focal deficits. Absent: pronater drift, facial droop, speech deficit - Skin Skin exam: Present: dry, intact Internal Medicine: Result - Labs CBC & Chem 7: 06/10/17 03:49 06/10/17 03:49 Labs: Short CBC 06/10/17 Range/Units 03:49 WBC 8.4 (4.3-11.1) K/mcL Hgb 11.8 (11.5-15.4) g/dL Hct 36.4 (35.3-44.9) % Plt Count 243 (140-400) K/mcL Neutrophils # 4.6 (1.6-8.9) K/mcL BMP 06/10/17 03:49 Sodium 145 Potassium 3.2 L Chloride 109 H Carbon Dioxide 25 BUN 18 Creatinine 0.63 Glucose 115 H Calcium 9.1 - ABG Interpretation ABG results: PT/INR, D-dimer PT 12.0 Seconds (9.4-12.1) 06/07/17 12:57 Consult Discharge Plan - Plan Referrals: Rohit Deluna MD [Primary Care Provider] -
[2017-06-10] MEDS: Beclomethasone 40mcg MDI IH SCH ×2 (10:53→22:38)
[2017-06-10] MEDS: Albuterol 2.5 MG/3 ML NEBULIZER IH SCH ×2 (10:53→22:39)
[2017-06-10] MEDS: ALPRAZolam 0.5 MG TABLET PO PRN (10:54)
[2017-06-10] MEDS: rOPINIRole 0.25 MG TABLET PO SCH (20:43)
[2017-06-10] MEDS: Scopolamine Patch 1.5 MG PATCH.TD72 TD SCH (20:44)
[2017-06-11] MEDS: Carbidopa/Levodopa 25/100 TABLET PO SCH ×4 (00:37→15:49)
[2017-06-11] MEDS: *HR* Heparin 5,000 UNIT/ML VIAL SQ SCH ×2 (05:42→13:13)
[2017-06-11 06:25] LABS: Basophils % 0.5 %; Eosinophils # 0.2 K/mcL (0.0-0.6); Eosinophils % 2.6 %; Hematocrit 35.4 % (35.3-44.9); Hemoglobin 11.3 g/dL (11.5-15.4); Immature Granulocytes % 0.4 % (0-4); Lymphocytes # 2.1 K/mcL (0.6-4.6); Lymphocytes % 24.4 %; Mean Corpuscular HGB Conc 31.9 g/dL (31.6-35.5); Mean Corpuscular Volume 87.8 fL (83.0-100.0); Mean Platelet Volume 9.8 fL (9.4-12.4); Monocytes # 0.8 K/mcL (0.0-1.3); Monocytes % 9.1 %; Neutrophils # 5.3 K/mcL (1.6-8.9); Platelet Count 237 K/mcL (140-400); Red Blood Count 4.03 M/mcL (3.82-4.97); Red Cell Distribution Width 13.8 % (11.5-14.5)
[2017-06-11 06:45] LABS: BUN/Creatinine Ratio 36 (6-26); Blood Urea Nitrogen 20 mg/dL (8-23); Calcium 8.6 mg/dL (8.6-10.3); Carbon Dioxide 25 mEq/L (23-29); Chloride 111 mEq/L (98-107); Glucose 97 mg/dL (70-105); Osmolality,Calculated 299 (280-300); Potassium 3.5 mEq/L (3.5-5.1); Sodium 143 mEq/L (136-145); eGFR For African Americans > 60 (> 60); eGFR For Non-African Americans > 60 (> 60)
[2017-06-11] MEDS: Cyanocobalamin (B-12) 1,000 MCG TABLET PO SCH (08:22)
[2017-06-11] MEDS: Folic Acid 1 MG TABLET GTUBE SCH (08:22)
[2017-06-11] MEDS: Loratadine 10 MG TABLET PO SCH (08:22)
[2017-06-11] MEDS: Glycopyrrolate 1 MG TABLET PO SCH (08:22)
[2017-06-11] MEDS: Sennosides/Docusate Sodium TABLET PO SCH (08:22)
[2017-06-11] MEDS: cefTRIAXone 1,000 MG in Water for inj. (sterile) 20 ML 10 ML IVPB SCH (08:24)
[2017-06-11] MEDS: Furosemide 40 MG TABLET PO SCH (08:24)
[2017-06-11] MEDS: Gabapentin 300 MG CAPSULE PO SCH (08:24)
[2017-06-11] MEDS: Multivit/Ca/Min/Fe/FA 1 TAB TABLET PO SCH (08:24)
[2017-06-11] MEDS: OLOPATADINE HCL OP SCH (08:25)
[2017-06-11] MEDS: *HR* HYDROcodone/Acet 5/325 mg TABLET PO PRN (08:31)
[2017-06-11] MEDS: Beclomethasone 40mcg MDI IH SCH (10:42)
[2017-06-11] MEDS: Albuterol 2.5 MG/3 ML NEBULIZER IH SCH (10:43)
[2017-06-11] MEDS ORDERED: ALPRAZolam 0.25 MG TABLET PO ONE (11:15)
--- NOTE | 2017-06-11 14:28 | Discharge Summary ---
Orders not resulted at time of discharge: Pending orders 06/07/17 22:43 Culture,Blood [BC] Routine Date of Encounter: 06/11/17 Time of Encounter: 14:23 - Discharge Diagnosis (1) UTI (urinary tract infection) Priority: Primary Status: Acute Qualifiers: Urinary tract infection type: acute cystitis Hematuria presence: with hematuria Qualified Code(s): N30.01 - Acute cystitis with hematuria (2) Altered mental status Priority: Secondary Status: Acute Qualifiers: Altered mental status type: somnolence Qualified Code(s): R40.0 - Somnolence (3) HTN (hypertension) Priority: Secondary Status: Chronic Qualifiers: Hypertension type: essential hypertension Qualified Code(s): I10 - Essential (primary) hypertension (4) COPD (chronic obstructive pulmonary disease) Priority: Secondary Status: Chronic Qualifiers: COPD type: unspecified COPD Qualified Code(s): J44.9 - Chronic obstructive pulmonary disease, unspecified (5) Parkinsons disease Priority: Secondary Status: Chronic Hospital course: Ms. Real is a 71 year old female past medical history of dementia COPD hypertension Parkinson's disease advanced dementia. Patient is a resident at [facility] facility she was brought to [facility] emergency room after she was found unresponsive by staff however she did a rales once arriving to the emergency room. Urinalysis was suggestive a urinary tract infection CT of her head showed no acute changes chest x-ray did not reveal any pneumonia patient was initiated on Rocephin urine cultures did reveal Escherichia coli which was sensitive to Rocephin patient's neuro status improved. Patient is on Xanax 3 times a day for anxiety which she was given while here. Noted patient became very sleepy and difficult to arouse. We did decrease the dose and she was much improved. According to social services note patient is to return back to [facility] however she will be followed by hospice. Patient's lab work is unremarkable her vital signs are stable she is been up sitting in a chair appears to be around her baseline mentally appropriate oriented times 2 following simple commands tolerating oral intake. She will be discharged back to [facility] with prescription of Omnicef and Xanax at 0.25 mg as needed for anxiety 3 times a day Discharge discussed with: patient, family - Time Spent with Patient Total time spent providing and/or coordinating discharge services: - Discharge Medications Prescriptions: ALPRAZolam [Xanax 0.5 MG Tablet] 0.25 mg PO TID PRN 5 Days #15 tablet PRN Reason: Anxiety Cefdinir [Omnicef] 300 mg PO BID #8 capsule Home Medications: Metoprolol [Lopressor] 25 mg PO BID 03/23/15 [History] Nitroglycerin [Nitrostat] 0.4 mg SL Q5M PRN 03/23/15 [History] Acetaminophen [Tylenol] 1,000 mg PO HS 10/12/16 [History] Albuterol Sulfate [Proair Hfa] 2 puff IH Q4H PRN 10/12/16 [History] Beclomethasone Diprop 40mcg [QVAR 40 mcg] 2 puff IH BID 10/12/16 [History] Carbidopa/Levodopa 25/100 [Sinemet 25/100] 1.5 tab PO 5XD 10/12/16 [History] Cyanocobalamin (Vitamin B-12) [Vitamin B12] 1,000 mcg PO DAILY 10/12/16 [History ] Dicyclomine [Bentyl] 10 mg PO BID 10/12/16 [History] Donepezil [Aricept] 5 mg PO HS 10/12/16 [History] Ergocalciferol (VITAMIN D2) [Vitamin D2] 50,000 unit PO SA 10/12/16 [History] Fexofenadine HCl [Allergy Relief] 180 mg PO DAILY 10/12/16 [History] Gabapentin [Neurontin] 300 mg PO QAM 10/12/16 [History] Gabapentin [Neurontin] 600 mg PO HS 10/12/16 [History] Glycopyrrolate [Robinul] 0.5 mg PO BID 10/12/16 [History] Magnesium Hydroxide [Milk of Magnesia] 2,400 mg PO DAILY PRN 10/12/16 [History] Multivit,Th Iron,Other Min [Therems-M] 1 each PO DAILY 10/12/16 [History] Olopatadine HCl [Patanol] 2 drop BOTH EYES BID 10/12/16 [History] Polyethylene Glycol 3350 [MiraLAX] 17 gm PO DAILY PRN 10/12/16 [History] Scopolamine Patch [Transderm-Scop] 1.5 mg TD Q72H 10/12/16 [History] Sennosides/Docusate Sodium [Senna-S Tablet] 2 each PO BID 10/12/16 [History] Ropinirole HCl [Requip] 0.25 mg PO HS 12/28/16 [History] Sertraline [Zoloft] 50 mg PO DAILY 12/28/16 [History] Acetaminophen [Tylenol Susp] 650 mg GTUBE Q6HR PRN ud.liq 01/08/17 [Rx] Albuterol Neb [Proventil Neb] 2.5 mg IH BID #0 01/08/17 [Rx] Folic Acid 1 mg GTUBE DAILY tablet 01/08/17 [Rx] Lisinopril [Zestril] 2.5 mg GTUBE DAILY tablet 01/08/17 [Rx] Atropine Sulfate in 0.9% NaCl [Atropine 0.01%-Ns Eye Drops] 2 drop PO Q2H PRN [History] Docusate Sodium [Dok] 100 mg PO BID 06/07/17 [History] Furosemide [Lasix] 40 mg PO DAILY 06/07/17 [History] HYDROcodone/Acet 5/325 mg [[place] 5-325 mg] 1 tab PO Q8H PRN 06/07/17 [History] Omeprazole [PriLOSEC] 20 mg PO DAILY 06/07/17 [History] Potassium Chloride 20 meq PO DAILY 06/07/17 [History] ALPRAZolam [Xanax 0.5 MG Tablet] 0.25 mg PO TID PRN 5 Days #15 tablet 06/11/17 [ Rx] Cefdinir [Omnicef] 300 mg PO BID #8 capsule 06/11/17 [Rx] Allergies/Adverse Reactions: 3 Allergy/AdvReac Type Severity Reaction Status Date / Time meperidine [From Demerol] Allergy Rash Verified 06/07/17 12:28 Date of admission: 06/07/17 21:14 Primary care physician: Rohit Deluna MD Consults: 06/08/17 10:24 Consult to Invasive Line Access Team [CONS] Routine Reason for Consult: limited vascular access Line Type: EPIV 06/11/17 07:20 Consult to In Home Caregiver [CONS] Routine Reason for SW Consult: patient came from [place] and the plan is to go to [place] but patient is saying that she wants to go back to [place]. need consult for discharge planning. Discharging clinician: Meliza West Anticipated date of discharge: 06/11/17 - Constitutional Vitals: Temp Pulse Resp BP Pulse Ox 97.6 F 74 17 175/74 95 06/11/17 11:24 06/11/17 11:24 06/11/17 11:24 06/11/17 11:24 06/11/17 11:24 General appearance: Present: A&O X 2, pleasant, no acute distress, underweight - Head Head exam: Present: atraumatic, normocephalic - Eye Eye exam: Present: PERRL, conjuntiva pink, sclera anicteric Pupils: Present: PERRL - Neck Neck exam general surgery: Present: supple, trachea midline. Absent: lymphadenopathy - Respiratory Respiratory exam: Present: CTAB. Absent: accessory muscle use, rales, rhonchi, wheezes - Cardiovascular Cardiovascular exam: Present: RRR, +S1, +S2. Absent: diastolic murmur, gallop, rubs, systolic murmur - GI/Abdominal GI/Abdominal exam: Present: normal bowel sounds, soft, no peritoneal signs. Absent: distended, tenderness - Extremities Exam Extremities exam: Present: warm, radial pulses palpable and symmetrical. Absent : calf tenderness, cyanotic, pedal edema - Neurological Exam Neurological exam: Present: CN II-XII intact, oriented X3, no focal deficits. Absent: pronater drift, facial droop, speech deficit - Skin Skin exam: Present: dry, intact - Patient Status Disposition: Transfer SNF Condition: Fair Functional capacity at discharge: wheelchair bound Overall status at discharge: patient is back to baseline - Discharge Instructions Instructions: Cefdinir (By mouth), Urinary Tract Infection in Women (DC) Follow Up With: Rohit Deluna MD [Primary Care Provider] - - Diet and Activity Activity: increase activity as tolerated Diet: advance to your usual diet
[2017-06-11 15:55] VITALS: BP 132/73
--- NOTE | 2017-06-11 16:39 | Physician Discharge Referral ---
- Diagnosis (1) UTI (urinary tract infection) Status: Acute (2) Altered mental status Status: Acute (3) HTN (hypertension) Status: Chronic (4) COPD (chronic obstructive pulmonary disease) Status: Chronic (5) Parkinsons disease Status: Chronic - Respiratory Orders Smoking Cessation: Smoking cessation has been advised. For more information, call the [place] Tobacco Quit Line at 1-510-GJFQ-NOW. - Transfer Medications Home Medications: Metoprolol [Lopressor] 25 mg PO BID 03/23/15 [History] Nitroglycerin [Nitrostat] 0.4 mg SL Q5M PRN 03/23/15 [History] Acetaminophen [Tylenol] 1,000 mg PO HS 10/12/16 [History] Albuterol Sulfate [Proair Hfa] 2 puff IH Q4H PRN 10/12/16 [History] Beclomethasone Diprop 40mcg [QVAR 40 mcg] 2 puff IH BID 10/12/16 [History] Carbidopa/Levodopa 25/100 [Sinemet 25/100] 1.5 tab PO 5XD 10/12/16 [History] Cyanocobalamin (Vitamin B-12) [Vitamin B12] 1,000 mcg PO DAILY 10/12/16 [History ] Dicyclomine [Bentyl] 10 mg PO BID 10/12/16 [History] Donepezil [Aricept] 5 mg PO HS 10/12/16 [History] Ergocalciferol (VITAMIN D2) [Vitamin D2] 50,000 unit PO SA 10/12/16 [History] Fexofenadine HCl [Allergy Relief] 180 mg PO DAILY 10/12/16 [History] Gabapentin [Neurontin] 300 mg PO QAM 10/12/16 [History] Gabapentin [Neurontin] 600 mg PO HS 10/12/16 [History] Glycopyrrolate [Robinul] 0.5 mg PO BID 10/12/16 [History] Magnesium Hydroxide [Milk of Magnesia] 2,400 mg PO DAILY PRN 10/12/16 [History] Multivit,Th Iron,Other Min [Therems-M] 1 each PO DAILY 10/12/16 [History] Olopatadine HCl [Patanol] 2 drop BOTH EYES BID 10/12/16 [History] Polyethylene Glycol 3350 [MiraLAX] 17 gm PO DAILY PRN 10/12/16 [History] Scopolamine Patch [Transderm-Scop] 1.5 mg TD Q72H 10/12/16 [History] Sennosides/Docusate Sodium [Senna-S Tablet] 2 each PO BID 10/12/16 [History] Ropinirole HCl [Requip] 0.25 mg PO HS 12/28/16 [History] Sertraline [Zoloft] 50 mg PO DAILY 12/28/16 [History] Acetaminophen [Tylenol Susp] 650 mg GTUBE Q6HR PRN ud.liq 01/08/17 [Rx] Albuterol Neb [Proventil Neb] 2.5 mg IH BID #0 01/08/17 [Rx] Folic Acid 1 mg GTUBE DAILY tablet 01/08/17 [Rx] Lisinopril [Zestril] 2.5 mg GTUBE DAILY tablet 01/08/17 [Rx] ALPRAZolam [Xanax 0.5 MG Tablet] 0.5 mg PO TID PRN 06/07/17 [History] Atropine Sulfate in 0.9% NaCl [Atropine 0.01%-Ns Eye Drops] 2 drop PO Q2H PRN [History] Docusate Sodium [Dok] 100 mg PO BID 06/07/17 [History] Furosemide [Lasix] 40 mg PO DAILY 06/07/17 [History] HYDROcodone/Acet 5/325 mg [[place] 5-325 mg] 1 tab PO Q8H PRN 06/07/17 [History] Omeprazole [PriLOSEC] 20 mg PO DAILY 06/07/17 [History] Potassium Chloride 20 meq PO DAILY 06/07/17 [History] Allergies/Adverse Reactions: 3 Allergy/AdvReac Type Severity Reaction Status Date / Time meperidine [From Demerol] Allergy Rash Verified 06/07/17 12:28 Certification: Further, I certify that my clinical findings support that this patient is homebound (i.e. absences from home require considerable and taxing effort and are for medical reasons or jew services or infrequently or short duration when for other reasons) because: Attestation: My signature below is to certify that this patient is under my care and that I, or nurse practitioner, or a physician's printing assistant working with me, has a face-to -face encounter with this patient.
--- NOTE | 2017-06-11 16:43 | Physician Discharge Referral ---
ExtendedCare Referral Info Transfer To: [facility] Provider in Charge after Transfer: Dump Grader (Patient will be hospice) Institutional Level of Care: Intermediate - Diagnosis (1) UTI (urinary tract infection) Priority: Primary Status: Acute (2) Altered mental status Priority: Primary Status: Acute (3) HTN (hypertension) Priority: Secondary Status: Chronic (4) COPD (chronic obstructive pulmonary disease) Priority: Secondary Status: Chronic (5) Parkinsons disease Priority: Secondary Status: Chronic Prognosis: Fair Aware of Diagnosis: Patient, Family Aware of Prognosis: Patient, Family - Transfer Medications Prescriptions: Cefdinir [Omnicef] 300 mg PO BID #8 capsule Home Medications: Metoprolol [Lopressor] 25 mg PO BID 03/23/15 [History] Nitroglycerin [Nitrostat] 0.4 mg SL Q5M PRN 03/23/15 [History] Acetaminophen [Tylenol] 1,000 mg PO HS 10/12/16 [History] Albuterol Sulfate [Proair Hfa] 2 puff IH Q4H PRN 10/12/16 [History] Beclomethasone Diprop 40mcg [QVAR 40 mcg] 2 puff IH BID 10/12/16 [History] Carbidopa/Levodopa 25/100 [Sinemet 25/100] 1.5 tab PO 5XD 10/12/16 [History] Cyanocobalamin (Vitamin B-12) [Vitamin B12] 1,000 mcg PO DAILY 10/12/16 [History ] Dicyclomine [Bentyl] 10 mg PO BID 10/12/16 [History] Donepezil [Aricept] 5 mg PO HS 10/12/16 [History] Ergocalciferol (VITAMIN D2) [Vitamin D2] 50,000 unit PO SA 10/12/16 [History] Fexofenadine HCl [Allergy Relief] 180 mg PO DAILY 10/12/16 [History] Gabapentin [Neurontin] 300 mg PO QAM 10/12/16 [History] Gabapentin [Neurontin] 600 mg PO HS 10/12/16 [History] Glycopyrrolate [Robinul] 0.5 mg PO BID 10/12/16 [History] Magnesium Hydroxide [Milk of Magnesia] 2,400 mg PO DAILY PRN 10/12/16 [History] Multivit,Th Iron,Other Min [Therems-M] 1 each PO DAILY 10/12/16 [History] Olopatadine HCl [Patanol] 2 drop BOTH EYES BID 10/12/16 [History] Polyethylene Glycol 3350 [MiraLAX] 17 gm PO DAILY PRN 10/12/16 [History] Scopolamine Patch [Transderm-Scop] 1.5 mg TD Q72H 10/12/16 [History] Sennosides/Docusate Sodium [Senna-S Tablet] 2 each PO BID 10/12/16 [History] Ropinirole HCl [Requip] 0.25 mg PO HS 12/28/16 [History] Sertraline [Zoloft] 50 mg PO DAILY 12/28/16 [History] Acetaminophen [Tylenol Susp] 650 mg GTUBE Q6HR PRN ud.liq 01/08/17 [Rx] Albuterol Neb [Proventil Neb] 2.5 mg IH BID #0 01/08/17 [Rx] Folic Acid 1 mg GTUBE DAILY tablet 01/08/17 [Rx] Lisinopril [Zestril] 2.5 mg GTUBE DAILY tablet 01/08/17 [Rx] ALPRAZolam [Xanax 0.5 MG Tablet] 0.5 mg PO TID PRN 06/07/17 [History] Atropine Sulfate in 0.9% NaCl [Atropine 0.01%-Ns Eye Drops] 2 drop PO Q2H PRN [History] Docusate Sodium [Dok] 100 mg PO BID 06/07/17 [History] Furosemide [Lasix] 40 mg PO DAILY 06/07/17 [History] HYDROcodone/Acet 5/325 mg [[place] 5-325 mg] 1 tab PO Q8H PRN 06/07/17 [History] Omeprazole [PriLOSEC] 20 mg PO DAILY 06/07/17 [History] Potassium Chloride 20 meq PO DAILY 06/07/17 [History] Cefdinir [Omnicef] 300 mg PO BID #8 capsule 06/11/17 [Rx] Allergies/Adverse Reactions: 3 Allergy/AdvReac Type Severity Reaction Status Date / Time meperidine [From Demerol] Allergy Rash Verified 06/07/17 12:28 - Respiratory Orders Smoking Cessation: Smoking cessation has been advised. For more information, call the [place] Tobacco Quit Line at 2-218-QHJN-NOW. - Ancillary Orders May use pressure relief devices daily prn - Mobility Orders Chair - Treatments Skin tear care topically daily PRN per policy, May check for fecal impaction rectally daily PRN - Diet Orders Regular CERTIFICATION: I certify that the transfer of the above named patient to an Extended Care Facility is necessary for the continuing treatment of the diagnosis listed. The above information is true and accurate reflection of patient's current condition. Confidential - Redisclosure prohibited without a patient's written consent.
== END 2017-06-11 18:55 | DRG 690 ==
LOC: EMEROO 12:21 → 3BNU 12:21
PROVIDERS: ADMIT Internal Medicine; ATTEND Registered Nurse